=== PATIENT | female | born 1975 | race Caucasian/White ===

== ENCOUNTER 2020-01-26 15:28 | Outpatient (REF) | payer OTHER, SELFPAY | END 2020-01-26 15:29 | disposition home or self-care (01) | LOC: HO.LAB 15:28 | PROVIDERS: Visit Provider Internal Medicine | DX: Z20.828 Contact with and (suspected) exposure to other viral communicable diseases (principal) | CPT/HCPCS: C9803; U0003 ==

== ENCOUNTER 2020-02-09 13:02 | Outpatient (REF) | payer OTHER, SELFPAY | END 2020-02-09 13:03 | disposition home or self-care (01) | LOC: HO.LAB 13:02 | PROVIDERS: PCP Physician Assistant; Visit Provider Internal Medicine | DX: Z20.828 Contact with and (suspected) exposure to other viral communicable diseases (principal) | CPT/HCPCS: C9803; U0003 ==

== ENCOUNTER 2020-04-15 13:52 | Outpatient (REF) | payer OTHER, SELFPAY | END 2020-04-15 13:53 | disposition home or self-care (01) | LOC: HO.LAB 13:52 | PROVIDERS: Visit Provider Internal Medicine | DX: Z20.822 Contact with and (suspected) exposure to COVID-19 (principal) | CPT/HCPCS: 36415; C9803; U0003; U0005 ==

== ENCOUNTER 2020-11-11 14:06 | Outpatient (REF) | payer OTHER, SELFPAY | END 2020-11-11 14:07 | disposition home or self-care (01) | LOC: HO.LAB 14:06 | PROVIDERS: PCP Physician Assistant; Visit Provider Internal Medicine | DX: Z20.822 Contact with and (suspected) exposure to COVID-19 (principal) | CPT/HCPCS: C9803; U0003; U0005 ==

== ENCOUNTER 2023-04-15 03:54 | Emergency (ER) | payer OTHER, SELFPAY ==
--- NOTE | ~2023-04-15 | XR_ITS ---
EXAMINATION: XR CHEST CLINICAL INFORMATION: Cough. COMPARISON: None available. TECHNIQUE: Frontal view of the chest was obtained. FINDINGS: No significant abnormality is noted involving the heart, lungs, mediastinum, bony thorax or soft tissues. XR/XR chest 1V IMPRESSION: Unremarkable examination.
[2023-04-15 04:01] VITALS: BP 120/76; PULSE 112; O2SAT 98
[2023-04-15 04:02] VITALS: BP 122/77; PULSE 87; TEMP 36.8; O2SAT 92
[2023-04-15 04:07] VITALS: BMI 29.6
[2023-04-15 04:29] LABS: Basophils Percent Auto 0.5 % (0-2); Eosinophils Absolute Auto 0.1 X10*3/uL (0.0-0.4); Eosinophils Percent Auto 0.8 % (0-4); Hematocrit 38.8 % (37.0-47.0); Hemoglobin 12.1 g/dl (12.0-16.0); Imm Gran Abs Auto 0.01 X10*3/uL (0.00-0.03); Imm Gran Pct Auto 0.2 % (0.0-0.4); Lymphocytes Absolute Auto 1.4 X10*3/uL (1.2-4.9); Lymphocytes Percent Auto 21.2 % (20-40); MANUAL DIFF FLAG NO; Mean Corpuscular HGB Conc 31.2 g/dl (31.0-35.0); Mean Corpuscular Hemoglobin 25.4 pg (27.0-33.0); Mean Corpuscular Volume 81.5 fL (80.0-98.0); Mean Platelet Volume 11.3 fL (9.4-12.3); Monocytes Absolute Auto 0.7 X10*3/uL (0.1-1.2); Monocytes Percent Auto 10.3 % (2-11); Neutrophils Absolute Auto 4.4 x10*3/uL (2.0-8.3); Platelet Count 391 X10*3/uL (160-400); Red Blood Count 4.76 X10*6/uL (4.20-5.50); Red Cell Distribution Width 14.2 % (11.0-16.0); White Blood Count 6.5 X10*3/uL (4.8-10.8)
[2023-04-15 04:44] LABS: Alanine Aminotransferase 18 U/L (0-31); Albumin Level 4.3 g/dL (3.5-5.0); Alkaline Phosphatase 67 U/L (39-117); Anion Gap 15 (12-20); Aspartate Amino Transferase 22 U/L (5-31); Bilirubin Total 0.4 mg/dL (0.0-1.0); Blood Urea Nitrogen 8 mg/dL (9-16); Calcium 9.2 mg/dL (8.4-10.2); Carbon Dioxide 24 mmol/L (22-29); Chloride 104 mmol/L (96-108); Creatinine Clr Calc Pharmacy 96.8; Estimated Glomerular Filt Rate > 60; Glucose Random 137 mg/dL (60-115); Potassium 4.6 mmol/L (3.3-5.1); Sodium 138 mmol/L (135-145); Total Protein 7.9 g/dL (6.5-8.0)
[2023-04-15 05:07] LABS: Influenza A PCR POSITIVE (Negative); Influenza B PCR NEGATIVE (Negative); Resp Syncy Virus RNA Qual PCR NEGATIVE (Negative); SARS COV2 PCR INHOUSE NEGATIVE (Negative)
--- NOTE | 2023-04-15 05:12 | ED.URI ---
HPI - URI/Sore Throat General Chief Complaint: Upper Respiratory Symptoms Stated Complaint: COUGH AND FEVER Time Seen by Provider: 04/15/23 05:08 Source: patient Mode of arrival: ambulatory Limitations: no limitations History of Present Illness HPI Narrative: Patient comes to the emergency room complaining of above, nausea, vomiting, generalized malaise. Subjective fever. No chest pain or shortness of breath Related Data Previous Rx's Medication Instructions Recorded acetaminophen 500 mg tablet 500 mg PO Q6H PRN fever or pain 04/15/23 #20 tabs ibuprofen 600 mg tablet 600 mg PO Q6H PRN fever or pain 04/15/23 #20 tabs ondansetron HCl 4 mg tablet 4 mg PO Q6H PRN nausea and 04/15/23 vomiting #14 tabs Allergies Allergy/AdvReac Type Severity Reaction Status Date / Time tramadol [TRAMADOL] Allergy Unknown NAUSEA, Verified 04/15/23 04:17 VOMITING, DIZZINESS Review of Systems Review of Systems: Constitutional : No Weight loss, complaining of subjective Fever, No Chills, No Night Sweats, complaining of fatigue and generalized malaise ENT/Mouth : No Hearing loss, No Ear Pain, No Nasal Congestion, No Sinus Pain, No Hoarseness, No sore throat, No Rhinorrhea, No Swallowing Difficulty Eyes: No Eye Pain, No Swelling, No Redness, No Foreign Body, No Discharge, No Vision Changes Cardiovascular : No Chest Pain, No SOB, No Dyspnea on Exertion, No Orthopnea, No Edema, No Palpitations Respiratory : Complaining of cough No Sputum, No Wheezing, No Smoke Exposure, No Dyspnea Gastrointestinal : No Nausea, No Vomiting, No Diarrhea, No Constipation, No abdominal Pain, No Hematochezia, No Melena Genitourinary : no irregular bleeding, No Dysuria, No Urinary Frequency, No Hematuria, No Urinary Incontinence, No Urgency, No Flank Pain, No Urinary Flow Changes, No Hesitancy Musculoskeletal : No joint pain, No Myalgias, No Joint Swelling Skin : No Skin Lesions, No rash Neuro : No Weakness, No Numbness, No Paresthesias, No Loss of Consciousness, No Dizziness, No Headache Psych : No Anxiety/Panic, No Depression, No SI/HI/AH/VH, No Social Issues, Heme/Lymph: No Bruising, No Bleeding,No Lymphadenopathy Endocrine : No Polyuria, No Polydipsia, No Temperature Intolerance PMFSH Social History Social History Smoked in Last 30 Days: No Use of substances other than those prescribed or required for medical reasons: No Advance Directives: No Physical Exam Vital Signs: Vital Signs: Last Vital Signs Temp 98.2 F 04/15/23 04:02 Pulse 87 04/15/23 04:02 BP 122/77 04/15/23 04:02 Pulse Ox 92 04/15/23 04:02 O2 Del Method Room Air 04/15/23 04:02 BMI result Body Mass Index 29.6 Const: Other: Appearance: Alert. Oriented X3. No acute distress. Eyes: Pupils equal, round and reactive to light. ENT: Pharynx normal. Neck: Normal inspection. Neck supple. No lymph nodes noted. No crepitus CVS: Normal heart rate and rhythm. Pulses normal. Normal S1 and S2 Respiratory: No respiratory distress. Breath sounds normal. No Wheezing. No rales Abdomen: Soft and nontender. No rigidity. No distention. Skin: Skin warm and dry. Normal skin color. Normal skin turgor. Extremities: No lower extremity edema. No Lacerations. No Rash Neuro: Oriented X 3. No motor deficit. No sensory deficit. Moving all extremities. No slurred speech. CN 2 through 12 grossly intact Psych: calm, cooperative, normal affect Medical Decision Making Medical Decision Making [facility] Narrative: I discussed the labs with the patient -my interpretation of labs: Positive for influenza A. -I discussed with the patient that she is on day 5 of symptoms, at this time, Tamiflu will not be of any benefit to her. -patient was given 1 dose of IM Toradol for symptomatic treatment. Differential Diagnosis Differential Diagnoses: The differential diagnosis associated with the presentation includes (Influenza, COVID, viral URI) Lab Data [facility] Lab Attestation statement: I reviewed the patient's lab results. 04/15/23 04:21 04/15/23 04:21 Labs: Lab Results 04/15/23 Range/Units 04:21 WBC 6.5 (4.8-10.8) X10*3/uL RBC 4.76 (4.20-5.50) X10*6/uL Hgb 12.1 (12.0-16.0) g/dl Hct 38.8 (37.0-47.0) % MCV 81.5 (80.0-98.0) fL MCH 25.4 L (27.0-33.0) pg MCHC 31.2 (31.0-35.0) g/dl RDW 14.2 (11.0-16.0) % Plt Count 391 (160-400) X10*3/uL MPV 11.3 (9.4-12.3) fL Immature Gran % (Auto) 0.2 (0.0-0.4) % Neut % (Auto) 67.0 (45-73) % Lymph % (Auto) 21.2 (20-40) % Frontier % (Auto) 10.3 (2-11) % Eos % (Auto) 0.8 (0-4) % Baso % (Auto) 0.5 (0-2) % Lymph # (Auto) 1.4 (1.2-4.9) X10*3/uL Frontier # (Auto) 0.7 (0.1-1.2) X10*3/uL Eos # (Auto) 0.1 (0.0-0.4) X10*3/uL Baso # (Auto) 0.0 (0.0-0.2) X10*3/uL Abs Immat Gran (auto) 0.01 (0.00-0.03) X10*3/uL Absolute Neuts (auto) 4.4 (2.0-8.3) x10*3/uL Absolute Nucleated RBC 0.000 (0.0-0.012) X10*3/uL Nucleated RBC % (auto) 0.0 (0.0-0.2) /100WBC Sodium 138 (135-145) mmol/L Potassium 4.6 (3.3-5.1) mmol/L Chloride 104 (96-108) mmol/L Carbon Dioxide 24 (22-29) mmol/L Anion Gap 15 (12-20) BUN 8 L (9-16) mg/dL Creatinine 0.77 (0.5-1.4) mg/dL Estim Creat Clear Calc 96.8 Estimated GFR > 60 Random Glucose 137 H (60-115) mg/dL Calcium 9.2 (8.4-10.2) mg/dL Total Bilirubin 0.4 (0.0-1.0) mg/dL AST 22 (5-31) U/L ALT 18 (0-31) U/L Alkaline Phosphatase 67 (39-117) U/L Total Protein 7.9 (6.5-8.0) g/dL Albumin 4.3 (3.5-5.0) g/dL Influenza Type A (PCR) POSITIVE A (Negative) Influenza Type B (PCR) NEGATIVE (Negative) RSV RNA Qual (PCR) NEGATIVE (Negative) SARS-CoV-2 RNA (RT-PCR) NEGATIVE (Negative) Discharge Plan Discharge Clinical Impression: Influenza A Patient Disposition: Home, Self-Care Instructions: Influenza (ED) Additional Instructions: Please follow-up with your primary care physician tomorrow. If you have any worsening or new symptoms, please return to the emergency room or call 911 Prescriptions: New ibuprofen 600 mg tablet 600 mg PO Q6H PRN (Reason: fever or pain) Qty: 20 0RF acetaminophen 500 mg tablet 500 mg PO Q6H PRN (Reason: fever or pain) Qty: 20 0RF ondansetron HCl 4 mg tablet 4 mg PO Q6H PRN (Reason: nausea and vomiting) Qty: 14 0RF
[2023-04-15] MEDS: Ketorolac Tromethamine 60 MG/2 ML VIAL IM (06:00)
[2023-04-15] MEDS: Ondansetron ODT 4 MG TAB.RAPDIS TRANSLINGU (06:00)
== END 2023-04-15 06:26 | disposition home or self-care (01) ==
PROVIDERS: Emergency Provider Emergency Medicine; PCP Internal Medicine
DX: J10.1 Influenza due to other identified influenza virus with other respiratory manifestations (principal); R05.9 Cough, unspecified; R50.9 Fever, unspecified; R11.2 Nausea with vomiting, unspecified; Z20.822 Contact with and (suspected) exposure to COVID-19; Z11.52 Encounter for screening for COVID-19; Z79.899 Other long term (current) drug therapy
CPT/HCPCS: 0241U; 71045; 80053; 85025; 96372; 99284; J1885

== ENCOUNTER 2023-05-17 14:50 | Outpatient (REF) | payer OTHER, SELFPAY ==
[2023-05-17 17:46] LABS: Erythrocyte Sedimentation Rate 12 MM/HR (0-20)
[2023-05-18 17:48] LABS: Cyclic Citrullinated Peptide <16 UNITS; IgA 164 mg/dL (47-310); IgG 1246 mg/dL (600-1640); IgM 106 mg/dL (50-300)
[2023-05-19 10:23] LABS: Class Alternaria alternata 0; Class Aspergillus fumigatus 0; Class Bermuda Grass 0; Class Birch 0; Class Cat Dander 0; Class Cladosporium herbarum 0; Class Cockroach 0; Class Common Ragweed 0; Class Cottonwood 0; Class Derm. pterony 0; Class Dermatophagoides farinae 0/1; Class Dog Dander 0; Class Elm 0; Class Maple Box Elder 0; Class Mountain Cedar 0; Class Mouse Urine Protein 0; Class Mugwort 0; Class Oak 0; Class Penicillium crysogenum 0; Class Rough Pigweed 0; Class Sheep Sorrel 0; Class Sycamore 0; Class Timothy Grass 0; Class Walnut Tree 0; Class White Ash 0; Class White Mulberry 0; D001 IgE D pteronyssinus <0.10 kU/L; D002 - IgE D farinae 0.19 kU/L; E001 - IgE Cat Dander <0.10 kU/L; E005 - IgE Dog Dander <0.10 kU/L; E072-IgE Mouse Urine <0.10 kU/L; G002 IgE Bermuda Grass <0.10 kU/L; G006 - IgE Timothy Grass <0.10 kU/L; I006-IgE Cockroach, German <0.10 kU/L; Immunoglobulin E 26 kU/L (<OR=114); M001 IgE Penicillium chrysogen <0.10 kU/L; M002 - IgE Cladosporium herbar <0.10 kU/L; M003 - IgE Aspergillus fumigat <0.10 kU/L; M006 - IgE Alternaria alternat <0.10 kU/L; T001 IgE Maple/Box Elder <0.10 kU/L; T003 IgE Common Silver Birch <0.10 kU/L; T006 - IgE Cedar, Mountain <0.10 kU/L; T007 - IgE Oak, White <0.10 kU/L; T008 IgE Elm, American <0.10 kU/L; T010 - IgE Walnut <0.10 kU/L; T011 - IgE Maple Leaf Sycamore <0.10 kU/L; T014 - IgE Cottonwood <0.10 kU/L; T015 - IgE Ash, White <0.10 kU/L; T070 - IgE White Mulberry <0.10 kU/L; W001 - IgE Ragweed, Short <0.10 kU/L; W006 - IgE Mugwort <0.10 kU/L; W014 IgE Pigweed, Common <0.10 kU/L; W018 IgE Sheep Sorrel <0.10 kU/L
[2023-05-19 13:09] LABS: Anti Nuclear Antibody Screen NEGATIVE (NEGATIVE)
== END 2023-05-17 14:51 | disposition home or self-care (01) ==
LOC: HO.LAB 14:50
PROVIDERS: PCP Physician Assistant; Referring Provider Student in an Organized Health Care Education/Training Program; Visit Provider Hospitalist
DX: J45.40 Moderate persistent asthma, uncomplicated (principal); T78.40XA Allergy, unspecified, initial encounter; R91.1 Solitary pulmonary nodule; R21 Rash and other nonspecific skin eruption; Z79.899 Other long term (current) drug therapy
CPT/HCPCS: 36415; 82784; 82785; 85652; 86003; 86038; 86200; 99202

== ENCOUNTER 2023-05-17 14:50 | Outpatient (AMB) | payer OTHER, SELFPAY ==
--- NOTE | 2023-05-17 15:05 | MHC.OFFVIS ---
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 The patient is a 47 year woman with a diagnosis of asthma. Here for evaluation. Apparently she has had a very hard winter and fall. 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 She has been exposed significant amount sick contacts and therefore has had significant amount her asthma flare ups. She is required prednisone multiple times already. In the meantime she does use Symbicort. She also has a rescue inhaler. I am further evaluation I did review her pulmonary function studies that she had this year demonstrating no evidence of any obstructive ventilatory defects. Ultimately she did undergo a methacholine challenge which she drop more than 20% after the 2nd dose of methacholine consistent with hyper-reactive airways in the diagnosis of asthma. The patient does have underlying allergies. Significant chronic rhinitis. More recently though she was also diagnosed with psoriasis. She has psoriasis throughout her skin face and extremities. Recently started on consentyx. Prior to starting the biologic therapy the patient did have blood work including a TB test was negative. The patient understands that she is going to be a compromise with the medication. Therefore we have to be careful with the medications we start for her asthma. The patient is using the Symbicort as needed which I believe is okay and also will go ahead and start her on Singulair as a way to treat her allergies. [facility] Medical History (Updated 05/18/23 @ 12:50 by Noah Strong MD) Rash Asthma Allergy Social History (Updated 05/17/23 @ 15:09 by SHARITA Hicks) Patient Tobacco Use Status: Never used Tobacco Review of Systems Const Denies fever(s) Eyes Reports no additional complaints ENT Reports nasal congestion Card Denies chest pain Resp Reports cough and Reports wheezing GI Reports no additional complaints Musc Reports no additional complaints, Denies arthralgias and Denies joint swelling Skin/Breast Reports lesions and Reports rash Neuro Reports no additional complaints Endo Reports no additional complaints Álvaro/Lymph Denies easy bruising Aller/Immun Reports wheezing Physical Exam Vital Signs: Last Vital Signs Pulse 90 05/17/23 15:06 BP 128/70 05/17/23 15:06 Pulse Ox 98 05/17/23 15:06 Oxygen Delivery Method Room Air 05/17/23 15:06 BMI result Body Mass Index 29.6 Const General: comfortable HEENT Head: Yes normocephalic Neck Neck: Yes supple Chest Chest palpation & inspection: normal inspection of the chest Resp Effort & Inspection: normal respiratory effort Auscultation: clear to auscultation bilaterally and no wheezes Cardio Heart sounds: S1 normal heart sound present and S2 normal heart sound present GI Palpation (GI): Soft to palpation Skin Rashes: rashes noted Extrem General: Yes no clubbing, cyanosis or edema Assessment & Plan Assessment & Plan (1) Allergy: Code(s): T78.40XA - Allergy, unspecified, initial encounter Qualifiers: Encounter type: initial encounter Qualified Code(s): T78.40XA - Allergy, unspecified, initial encounter (2) Asthma: Code(s): J45.909 - Unspecified asthma, uncomplicated Qualifiers: Asthma severity: moderate Asthma persistence: persistent Asthma complication type: uncomplicated Qualified Code(s): J45.40 - Moderate persistent asthma, uncomplicated (3) Rash: Comment: psoriasis Code(s): R21 - Rash and other nonspecific skin eruption Plan Bloodwork/allergy testing Continue Symbicort REBECCA as needed start Singulair F/U 3-4 months Orders: Orders Cyclic Citrullinated Peptide 05/17/23 T78.40XA - Allergy, unspecified, initial encounter Cell Count w Diff Pleural Fld 05/17/23 T78.40XA - Allergy, unspecified, initial encounter Immunoglobulin E 05/17/23 T78.40XA - Allergy, unspecified, initial encounter Resp Allergy Profile Region I 05/17/23 J45.909 - Unspecified asthma, uncomplicated, R21 - Rash and other nonspecific skin eruption, R91.1 - Solitary pulmonary nodule, T78.40XA - Allergy, unspecified, initial encounter WOO Reflex Titer and Pattern 05/17/23 T78.40XA - Allergy, unspecified, initial encounter Erythrocyte Sedimentation Rate 05/17/23 T78.40XA - Allergy, unspecified, initial encounter Immunoglobulins,IgG IgA IgM 05/17/23 T78.40XA - Allergy, unspecified, initial encounter Medications: New montelukast (Singulair) 10 mg PO BEDTIME 30 days 30 tabs 11RF J45.909 - Unspecified asthma, uncomplicated Coding Level of Care Code New Pt Level 4 (58156) Diagnoses Allergy, initial encounter T78.40XA Encounter type: initial encounter Moderate persistent asthma without complication J45.40 Asthma severity: moderate Asthma persistence: persistent Asthma complication type: uncomplicated Rash R21 Time Spent (min) 38
[2023-05-17 15:06] VITALS: BP 128/70; PULSE 90; O2SAT 98; BMI 29.6
== END 2023-05-17 16:17 | disposition home or self-care (01) ==
PROVIDERS: PCP Physician Assistant; Referring Provider Student in an Organized Health Care Education/Training Program; Visit Provider Hospitalist
DX: T78.40XA Allergy, unspecified, initial encounter (principal); J45.40 Moderate persistent asthma, uncomplicated; R21 Rash and other nonspecific skin eruption
CPT/HCPCS: 99204

== ENCOUNTER 2023-08-19 15:13 | Outpatient (AMB) | payer OTHER, SELFPAY ==
--- NOTE | 2023-08-19 15:21 | A.OFFVIS_ITS ---
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 Here for evaluation. Apparently she has had a very hard winter and fall. 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 She has been exposed significant amount sick contacts and therefore has had significant amount her asthma flare ups. She is required prednisone multiple times already. In the meantime she does use Symbicort. She also has a rescue inhaler. I am further evaluation I did review her pulmonary function studies that she had this year demonstrating no evidence of any obstructive ventilatory defects. Ultimately she did undergo a methacholine challenge which she drop more than 20% after the 2nd dose of methacholine consistent with hyper-reactive airways in the diagnosis of asthma. The patient does have underlying allergies. Significant chronic rhinitis. More recently though she was also diagnosed with psoriasis. She has psoriasis throughout her skin face and extremities. Recently started on consentyx. Prior to starting the biologic therapy the patient did have blood work including a TB test was negative. The patient understands that she is going to be a compromise with the medication. Therefore we have to be careful with the medications we start for her asthma. The patient is using the Symbicort as needed which I believe is okay and also will go ahead and start her on Singulair as a way to treat her allergies. 08/19/2023 the patient is here for a pulmonary follow-up visit. Overall she is doing little better. She has tolerating the Symbicort. In addition to that she is responding well to the singular. The patient does have underlying asthma. We did review her pulmonary function studies from [facility] which appeared to be reassuring. In addition to that the patient did undergo blood work including allergy testing. She has minimal allergies noted. She is responding well to the singular which we helping with the chute tapper. She can also use anti histamines as needed. Otherwise the patient is without any other complaints. Will plan to follow-up in the spring. The patient has any issues prior to that she will call for an earlier assessment. [facility] Medical History (Updated 05/18/23 @ 12:50 by Noah Strong MD) Rash Asthma Allergy Social History (Updated 05/17/23 @ 15:09 by SHARITA Hicks) Patient Tobacco Use Status: Never used Tobacco Review of Systems Const Denies fever(s) Eyes Reports no additional complaints ENT Reports nasal congestion Card Denies chest pain Resp Reports cough and Reports wheezing GI Reports no additional complaints Musc Reports no additional complaints, Denies arthralgias and Denies joint swelling Skin/Breast Reports lesions and Reports rash Neuro Reports no additional complaints Endo Reports no additional complaints Álvaro/Lymph Denies easy bruising Aller/Immun Reports wheezing Physical Exam Vital Signs: Last Vital Signs Pulse 73 08/19/23 15:22 Pulse Ox 99 08/19/23 15:22 Oxygen Delivery Method Room Air 08/19/23 15:22 BMI result Body Mass Index 29.6 Const General: comfortable HEENT Head: Yes normocephalic Neck Neck: Yes supple Chest Chest palpation & inspection: normal inspection of the chest Resp Effort & Inspection: normal respiratory effort Auscultation: clear to auscultation bilaterally and no wheezes Cardio Heart sounds: S1 normal heart sound present and S2 normal heart sound present GI Palpation (GI): Soft to palpation Skin Rashes: rashes noted Extrem General: Yes no clubbing, cyanosis or edema Assessment & Plan Assessment & Plan (1) Allergy: Code(s): T78.40XA - Allergy, unspecified, initial encounter Category: Medical Qualifiers: Encounter type: initial encounter Qualified Code(s): T78.40XA - Allergy, unspecified, initial encounter (2) Asthma: Code(s): J45.909 - Unspecified asthma, uncomplicated Category: Medical Qualifiers: Asthma complication type: uncomplicated Asthma persistence: persistent Asthma severity: moderate Qualified Code(s): J45.40 - Moderate persistent asthma, uncomplicated (3) Rash: Comment: psoriasis Code(s): R21 - Rash and other nonspecific skin eruption Category: Medical Plan Continue Symbicort as needed REBECCA as needed continue Singulair F/U 6-8 months Coding Level of Care Code Est Pt Level 4 (94063) Diagnoses Allergy, initial encounter T78.40XA Encounter type: initial encounter Moderate persistent asthma without complication J45.40 Asthma complication type: uncomplicated Asthma persistence: persistent Asthma severity: moderate Rash R21 Time Spent (min) 16
[2023-08-19 15:22] VITALS: PULSE 73; O2SAT 99; BMI 29.6
== END 2023-08-19 15:38 | disposition home or self-care (01) ==
PROVIDERS: PCP Physician Assistant; Visit Provider Hospitalist
DX: T78.40XA Allergy, unspecified, initial encounter (principal); J45.40 Moderate persistent asthma, uncomplicated; R21 Rash and other nonspecific skin eruption
CPT/HCPCS: 99214

== ENCOUNTER → 2023-08-19 15:13 | Outpatient (BNVA) | payer OTHER, SELFPAY | PROVIDERS: PCP Physician Assistant; Visit Provider Hospitalist | DX: J45.40 Moderate persistent asthma, uncomplicated (principal); T78.40XA Allergy, unspecified, initial encounter; R21 Rash and other nonspecific skin eruption | CPT/HCPCS: 99212 ==

== ENCOUNTER 2024-03-29 08:43 | Emergency (ER) | payer OTHER, SELFPAY ==
[2024-03-29 08:57] VITALS: BP 132/72; PULSE 88; RESP 22; TEMP 36.6; O2SAT 100; BMI 33.5
--- OUTSIDE RECORDS SUMMARY | 2024-03-29 09:31 | XMS_ITS | Encounter Summary ---
Author Organization [facility] Address [address] [place] [address] Care Team Providers Care Senior Electrical Designer Name Role Phone Ailyn Velázquez MD Primary Care Provider + Reason for Referral * Imaging (Routine) - Closed Specialty Diagnoses / Procedures Referred By Madison de león Referred To Contact Radiology Diagnoses Pelvic pain Procedures US Pelvis Non OB Complete w Transvaginal Cathy Mckeon CNM [address] [place] [address] [phone] Referral ID Status Reason Start Date Expiration Date Visits Re quested Visits Authorized [id number] Closed 03/03/2024 03/03/2025 1 1 Reason for Visit * Imaging (Routine) - Closed Specialty Diagnoses / Procedures Referred By Madison de león Referred To Contact Radiology Diagnoses Pelvic pain Procedures US Pelvis Non OB Complete w Transvaginal Cathy Mckeon CNM [address] [place] [address] [phone] Referral ID Status Reason Start Date Expiration Date Visits Re quested Visits Authorized [id number] Closed 03/03/2024 03/03/2025 1 1 Encounter Details Date Type Department Care Team (Latest Contact Info) Description 03/23/2024 12:48 PM EST - 03/23/2024 11:59 PM EST Hospital Encounter [facility] Ultrasound [address] [place] [address] Pelvic pain Discharge Disposition: Home or Self Care Social History Tobacco Use Types Packs/Day Years Used Date Smoking Tobacco: Never Smokeless Tobacco: Never Alcohol Use Standard Drinks/Week Comments Yes 0.8 (1 standard drink = 0.6 oz p ure alcohol) Sex and Gender Information Value Date Recorded Sex Assigned at Not on file Gender Identity Not on file Sexual Orientation Not on file Job Start Date Occupation Industry Not on file Not on file Not on file documented as of this encounter Medications at Time of Discharge Medication Sig Dispensed Refills Start Date End Date amitriptyline (ELAVIL) 10 mg tablet Take 1 tablet (10 mg total) by mouth. at bedtime 01/09/2024 betamethasone dipropionate (DIPROSONE) 0.05 % cream 02/15/2024 conjugated estrogens (Premarin) vaginal cream Insert 0.5 g into the vagina 2 (two) times a week. INSERT 1 APPLICATORFUL 30 g 03/06/2024 folic acid (FOLVITE) 1 mg tablet Take 1 tablet (1,000 mcg total) by mouth 1 (one) time each day. 06/19/2021 gabapentin (NEURONTIN) 100 mg capsule 01/25/2024 hydroxychloroquine (PLAQUENIL) 200 mg tablet Take 1 tablet (200 mg total) by mouth 1 (one) time each day. 01/12/2024 hydrOXYzine HCL (ATARAX) 25 mg tablet TAKE 1 TABLET BY MOUTH THREE TIMES DAILY NEEDED FOR ITCHING 03/04/2023 ibuprofen (ADVIL,MOTRIN) 800 mg tablet Take 1 tablet (800 mg total) by mouth 3 (three) times a day if needed. 12/15/2023 Lactobacillus acidophilus 100 mg (1 billion cell) capsule Take 1 capsule by mouth 2 (two) times a day. 09/23/2021 meloxicam (MOBIC) 15 mg tablet Take 1 tablet (15 mg total) by mouth 1 (one) time each day. 02/21/2024 montelukast (SINGULAIR) 10 mg tablet Take 1 tablet (10 mg total) by mouth. at bedtime. 12/11/2023 norethindrone (INGRID,PHOEBE,ALANNA,M ICRONOR) 0.35 mg tablet Take 1 tablet (0.35 mg total) by mouth 1 (one) time each day. for 360 days omeprazole (PriLOSEC) [address] capsule Take 1 capsule (20 mg total) by mouth 1 (one) time each day before breakfast. 12/11/2023 SUMAtriptan (IMITREX) 50 mg tablet TAKE 1 TABLET BY MOUTH DAILY NEEDED FOR MIGRAINE HEADACHE. MAY REPEAT DOSE AFTER 2 HOURS UP TO A. MAXIMUM OF 2 12/11/2023 Symbicort 160-4.5 mcg/actuation inhaler Inhale 2 puffs by mouth 2 times daily. 12/15/2023 Ventolin HFA 90 mcg/actuation inhaler Inhale 2 puffs by mouth Every 4 hours as needed. 12/15/2023 documented as of this encounter Discharge Disposition Disposition Code Departure Means Destination Home or Self Care documented in this encounter Plan of Treatment Upcoming Encounters Date Type Department Care Team (Late st Contact Info) Description 06/01/2024 11:15 AM EDT Office Visit Obstetrics & Gynecology - [address] [phone] Cathy Mckeon, [facility] [address] [place] [id number] documented as of this encounter Procedures Procedure Name Priority Date/Time Associated Diagnosis Comments US PELVIS NON OB COMPLETE W TRANSVAGINAL Routine 03/23/2024 1:22 PM EST Pelvic pain documented in this encounter Results * US Pelvis Non OB Complete w Transvaginal (03/23/2024 1:22 PM EST) Anatomical Region Laterality Modality Body, Pelvis Ultrasound 03/27/2024 3:36 PM EST Impressions 03/27/2024 3:42 PM EST 1. ??Normal sonographic appearance of the uterus and right ovary. 2. ??Stable simple appearing 13 mm cyst exophytic ovarian or paraovarian cyst on the left. -------- FINAL REPORT -------- Dictated By: Herman Izquierdo Dictated Date: 03/27/2024 15:36 ET Assigned Physician: Herman Izquierdo Reviewed and Electronically Signed By: Herman Izquierdo Signed Date: 03/27/2024 15:42 ET Workstation ID: [id number] Transcribed By: Self Edit Transcribed Date: 03/27/2024 15:36 ET Narrative 03/27/2024 3:42 PM EST Procedure: Ultrasound of the pelvis. HISTORY: LLQ pelvic pain. TECHNIQUE: Transabdominal and endovaginal grayscale, color Doppler, and spectral Doppler ultrasound evaluation of the pelvis. COMPARISON: 10/13/2019. FINDINGS: Anteverted uterus measuring 10.7 x 4.6 x 6.2 cm. ??The endometrial stripe measures 6 mm. ??Incidentally noted nabothian cysts. Right ovarian volume of 5.6 mL. ??Left ovarian volume of 4.8 mm. ??The left ovary is only seen on transabdominal imaging. ??Doppler flow is documented in both ovaries. There is a 13 mm simple cyst adjacent to the left ovary. ??This appears similar to the previous exam. ?? No free fluid in the pelvis. Procedure Note Herman Izquierdo MD - 03/27/2024 Procedure: Ultrasound of the pelvis. HISTORY: LLQ pelvic pain. TECHNIQUE: Transabdominal and endovaginal grayscale, color Doppler, andspectral Doppler ultrasound evaluation of the pelvis. COMPARISON: 10/13/2019. FINDINGS: Anteverted uterus measuring 10.7 x 4.6 x 6.2 cm. The endometrial stripemeasures 6 mm. Incidentally noted nabothian cysts. Right ovarian volume of 5.6 mL. Left ovarian volume of 4.8 mm. The leftovary is only seen on transabdominal imaging. Doppler flow is documentedin both ovaries. There is a 13 mm simple cyst adjacent to the left ovary. This appearssimilar to the previous exam. No free fluid in the pelvis. IMPRESSION: 1. Normal sonographic appearance of the uterus and right ovary. 2. Stable simple appearing 13 mm cyst exophytic ovarian or paraovariancyst on the left. -------- FINAL REPORT -------- Dictated By: Herman Izquierdo Dictated Date: 03/27/2024 15:36 ET Assigned Physician: Herman Izquierdo Reviewed and Electronically Signed By: Herman Izquierdo Signed Date: 03/27/2024 15:42 ET Workstation ID: [id number] Transcribed By: Self Edit Transcribed Date: 03/27/2024 15:36 ET Cathy Mckeon CNM IMG US PROCEDURES documented in this encounter Visit Diagnoses Diagnosis Pelvic pain documented in this encounter Care Teams Senior Electrical Designer Relationship Specialty Start Date End Date Ailyn Velázquez MD [address] [place] [phone] PCP - General 10/07/23 documented as of this encounter
--- OUTSIDE RECORDS SUMMARY | 2024-03-29 09:31 | XMS_ITS | Encounter Summary ---
Author Organization [employer] Address [address] [place] [address] Care Team Providers Care Event Marketing Representative Name Role Phone Ailyn Velázquez MD Primary Care Provider + Encounter Details Date Type Department Care Team (Late Contact Info) Description 03/09/2024 Telephone Obstetrics & Gynecology - [address] [phone] Cathy Mckeon CNM [facility] [place] [address] Social History Tobacco Use Types Packs/Day Years [...] on file documented as of this encounter Plan of Treatment Upcoming Encounters Date Type Department Care Team (Late Contact Info) Description 06/01/2024 11:15 AM EDT Office Visit Obstetrics & Gynecology - [address] [phone] Cathy Mckeon CNM [address] [place] [phone] documented as of this encounter Visit Diagnoses Not on filedocumented in this encounter Care Teams Event Marketing Representative Relationship Specialty Start Date End Date Ailyn Velázquez MD [address] [place] [phone] PCP - General 10/07/23 documented as of this encounter
--- OUTSIDE RECORDS SUMMARY | 2024-03-29 09:31 | XMS_ITS | Clinical Summary ---
Author Organization [facility] Address [address] [place] [address] Phone Care Team Providers Care Tailoring Teacher Name Role Phone Ailyn Velázquez MD Primary Care Provider + Allergies Active Allergy Reactions Criticality Noted Date Comments Tramadol Dermatitis,Rash 06/04/2016 Medications Medication Sig Dispensed Refills Start Date End Date Status Lactobacillus acidophilus 100 mg (1 billion cell) capsule Take 1 capsule by mouth 2 (two) times a day. 09/23/2021 Active folic acid (FOLVITE) 1 mg tablet Take 1 tablet (1,000 mcg total) by mouth 1 (one) time each day. 06/19/2021 Active norethindrone (INGRID,PHOEBE,HEAT HER,MICRONOR) 0.35 mg tablet Take 1 tablet (0.35 mg total) by mouth 1 (one) time each day. for 360 days Active Ventolin HFA 90 mcg/actuation inhaler Inhale 2 puffs by mouth Every 4 hours as needed. 12/15/2023 Active amitriptyline (ELAVIL) 10 mg tablet Take 1 tablet (10 mg total) by mouth. at bedtime 01/09/2024 Active Symbicort 160-4.5 mcg/actuation inhaler Inhale 2 puffs by mouth 2 times daily. 12/15/2023 Active gabapentin (NEURONTIN) 100 mg capsule 01/25/2024 Active hydroxychloroquine (PLAQUENIL) 200 mg tablet Take 1 tablet (200 mg total) by mouth 1 (one) time each day. 01/12/2024 Active hydrOXYzine HCL (ATARAX) 25 mg tablet TAKE 1 TABLET BY MOUTH THREE TIMES DAILY NEEDED FOR ITCHING 03/04/2023 Active ibuprofen (ADVIL,MOTRIN) 800 mg tablet Take 1 tablet (800 mg total) by mouth 3 (three) times a day if needed. 12/15/2023 Active montelukast (SINGULAIR) 10 mg tablet Take 1 tablet (10 mg total) by mouth. at bedtime. 12/11/2023 Active SUMAtriptan (IMITREX) 50 mg tablet TAKE 1 TABLET BY MOUTH DAILY NEEDED FOR MIGRAINE HEADACHE. MAY REPEAT DOSE AFTER 2 HOURS UP TO A. MAXIMUM OF 2 12/11/2023 Active betamethasone dipropionate (DIPROSONE) 0.05 % cream 02/15/2024 Active meloxicam (MOBIC) 15 mg tablet Take 1 tablet (15 mg total) by mouth 1 (one) time each day. 02/21/2024 Active omeprazole (PriLOSEC) [address] capsule Take 1 capsule (20 mg total) by mouth 1 (one) time each day before breakfast. 12/11/2023 Active conjugated estrogens (Premarin) vaginal cream Insert 0.5 g into the vagina 2 (two) times a week. INSERT 1 APPLICATORFUL 30 g 03/06/2024 Active conjugated estrogens (Premarin) vaginal cream Insert into the vagina 2 (two) times a week. INSERT 1 APPLICATORFUL 05/11/2022 5 Discontinued (Reorder) cephalexin (KEFLEX) 500 mg capsule Take 1 capsule (500 mg total) by mouth 2 (two) times a day for 5 days. 10 each 03/03/2024 5 terconazole (TERAZOL 7) 0.4 % vaginal cream Insert 1 applicator into the vagina at bedtime for 7 days. 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 [address] [place] [phone] Cathy Mckeon CNM Results 03/23/2024 12:48 PM EST - 03/23/2024 11:59 PM EST Hospital Encounter [facility] [address] [place] [phone] Pelvic pain Discharge Disposition: Home or Self Care 03/09/2024 Telephone Obstetrics & Gynecology [facility] [address] [place] [phone] Cathy Mckeon CNM 03/03/2024 9:15 AM EST Office Visit Obstetrics & Gynecology [facility] [address] [place] [phone] Cathy Mckeon CNM Pelvic pain (Primary Dx); Acute vaginitis; Bartholin's gland cyst from Last 3 Months Immunizations Name Administration Dates Next Due Influenza Quadravalent, 0.5ml (Fluad) 65yo and o lder 12/16/2019 Influenza Quadrivalent, 0.5m l, preservative free (Fluarix; FluLaval; Fluzone) ages 6mo and older (Afluria) 3yo and older 04/08/2021,12/16/2019 Influenza trivalent, 0.5mL, preservative free (Fluarix; FluLaval; Fluzone) ages 6mo and older (Afluria) 3 years and older 12/16/2012 Influenza, Intradermal, Quad rivalent, Preservative Free, Injectable 12/16/2012 PPD Test 04/09/2020,03/06/2015 [employer] SARS-CoV-2 COVID-19, mRNA, LNP-S, preservative free 12/07/2020,11/07/2020 Pneumococcal polysaccharide 23 valent (Pneumovax 23) 2yo and older 07/22/2016 Td Tetanus diptheria (Tdvax) 7yo and older 04/05 Tdap Tetanus diptheria acell ular pertussis (Boostrix; Adacel) 7yo and older 10/27/2022 Surgical History Surgery Date Site/Laterality Comments TUBAL LIGATION PROCEDURE: HISTORICAL TUBAL LIGATION Medical History Medical History Date Comments Stroke due to embolism (CMS/HCC) DX:Stroke due to embolism (HCC); COMMENT: recovering well Migraine DX:Migraine Family History Medical History Relation Name Comments No Known Problems Father Other: ovarian cancer Mother Relation Name Status Comments Father Mother Social History Tobacco Use Types Packs/Day Years [...] file Not on file Not on file Obstetrics History Para Term AB IAB SAB Ectopic Multiple Livin g Live Births 5 4 1 1 4 4 Date Outcome GA Total Labor Labor/2nd/3rd Weight Sex Type Anes PTL Cindy A1 A5 Name Clin SAB 1996 Para F Living 1999 Para F Living 2002 Para M Living 2006 Para F Living Last Filed Vital Signs Vital Sign Reading Time Taken Comments Blood Pressure 123/85 03/03/2024 9:18 AM EST Pulse 78 03/03/2024 9:18 AM EST Temperature - - Respiratory Rate - - Oxygen Saturation - - Inhaled Oxygen Concentration - - Weight 91.6 kg (202 lb) 03/03/2024 9:18 AM EST Height 165.1 cm (5' 5 ) 03/03/2024 9:18 AM EST Body Mass Index 33.61 03/03/2024 9:18 AM EST Plan of Treatment Upcoming Encounters Date Type Department Care Team (Late st Contact Info) Description 06/01/2024 11:15 AM EDT Office Visit Obstetrics & Gynecology - [address] [phone] Cathy Mckeon, [facility] [address] [place] [address] Health Maintenance Due Date Last Done Comments Hepatitis B Vaccines (1 of 3 - 19+ 3-dose series) 1996 Pneumococcal Vaccine: Pediatrics (0 to 5 Years) and At-Risk Patients (6 to 64 Years) (2 of 2 - PCV) 07/22/2017 07/22/2016 COVID-19 Vaccine (3 - Pfizer risk series) 01/04/2021 12/07/2020, 11/07/2020 Colorectal Cancer Screening: Colonoscopy 01/25/2022 Social Influencers of Health Screening 01/25/2022 Depression Screening 02/24/2023 02/24/2022 Influenza Vaccine (#1) 2023 2, 12/16/2019, 12/16/2019, Additional history exists Breast Cancer Screening 11/13/2024 11/13/2022 Cervical Cancer Screening: HPV 09/23/2026 09/23/2021 Cholesterol Screening (Lipid Panel) 10/28/2027 10/27/2022, 10/27/2022, 10/27/2022, Additional history exists DTaP,Tdap,and Td Vaccines (3 - Td or Tdap) 10/27/2032 10/27/2022, 04/05/2017 Hepatitis C Screening Completed 01/27/2022 HIV Screening Completed 03/03/2022 HIB Vaccines Aged Out No longer eligi ble based on patient's age to complete this topic HPV Vaccines Aged Out No longer eligi ble based on patient's age to complete this topic Hepatitis A Vaccines Aged Out No long er eligible based on patient's age to complete this topic IPV Vaccines Aged Out No longer eligi ble based on patient's age to complete this topic MMR Vaccines Aged Out No longer eligi ble based on patient's age to complete this topic Meningococcal ACWY Vaccine Aged Out N o longer eligible based on patient's age to complete this topic RSV Immunization Patients Under 20 months Aged Out No longer eligible based on patient's age to complete this topic Varicella Vaccines Aged Out No longer eligible based on patient's age to complete this topic Procedures Procedure Name Priority Date/Time Associated Diagnosis Comments US PELVIS NON OB COMPLETE W TRANSVAGINAL Routine 03/23/2024 1:22 PM EST Pelvic pain TRICHOMONAS VAGINALIS ANTIGEN Routine 03/03/2024 9:37 AM EST Pelvic pain Acute vaginitis WET PREP, GENITAL Routine 03/03/2024 9:3 7 AM EST Pelvic pain Acute vaginitis CHLAMYDIA TRACHOMATIS AND NEISSERIA GONORRHOEAE PCR Routine 03/03/2024 9:37 AM EST Pelvic pain Acute vaginitis LIPID PANEL Routine 10/27/2022 HIV SCREENING Routine 03/03/2022 HPV Routine 09/23/2021 from Last 3 Months or Most Recently Relevant to Health Maintenance Results * US Pelvis Non OB Complete [...] Signed Date: 03/27/2024 15:42 ET Workstation ID: [id number] Transcribed By: Self Edit Transcribed Date: 03/27/2024 [...] Signed Date: 03/27/2024 15:42 ET Workstation ID: [id number] Transcribed By: Self Edit Transcribed Date: 03/27/2024 15:36 ET Cathy Mckeon CNM [facility] [place] PROCEDURES * Trichomonas vaginalis antigen (03/03/2024 9:37 AM EST) Trichomonas vaginalis Negative Negative 03/03/2024 6:34 PM EST [facility] Swab Vaginal structure / Unknown Non-blood Collection / Unknown 03/03/2024 9:37 AM EST 03/03/2024 4:10 PM EST Cathy Mckeon CNM LAB MICROBIOLOGY - G ENERAL ORDERABLES Performing Organization Address City/[facility]/ZIP Co de Phone Number [facility] [address] [place] [address], [place] [phone] * Chlamydia trachomatis and Neisseria gonorrhoeae molecular study (03/03/2024 9:37 AM EST) Neisseria gonorrhoeae PCR Negative Negative LAB MOLECULAR DIAGNOSTICS METHOD 03/04/2024 9:43 AM EST [facility] Chlamydia trachomatis PCR Negative Negative LAB MOLECULAR DIAGNOSTICS METHOD 03/04/2024 9:43 AM EST [facility] Swab Cervix uteri structure / Unknown Non-blood Collection / Unknown 03/03/2024 9:37 AM EST 03/03/2024 4:10 PM EST [facility] LAB MICROBIOLOGY - G ENERAL ORDERABLES Performing Organization Address [facility]/ZIP Co de Phone Number [facility] [address] [place] [address], [place] [phone] * (ABNORMAL) Wet prep, genital (03/03/2024 9:37 AM EST) Pathologist [facility] Clue Cells, Wet Prep Negative Negative 03/03/2024 6:34 PM [facility] Yeast, Wet Prep Positive(A) Negative 03/03/2024 6:34 PM EST [facility] Trichomonas, Wet Prep Indeterminate Negative 03/03/2024 6:34 PM EST [facility] Comment:Refer to Trichomonas antigen. Swab Vaginal structure / Unknown Non-blood Collection / Unknown 03/03/2024 9:37 AM EST 03/03/2024 4:10 PM EST [facility] LAB MICROBIOLOGY - G ENERAL ORDERABLES Performing Organization Address City/[facility]/ZIP Co de Phone Number [facility] [address] [place] [address], [place] [phone] * Lipid panel (10/27/2022) [facility] Triglycerides 0 mg/dL Comment:No interpretation, a bstracted Cholesterol 0 mg/dL Comment:No interpretation, a bstracted HDL 0 mg/dL Comment:No interpretation, a bstracted LDL Cholesterol 0 mg/dL Comment:No interpretation, a bstracted Blood Venous blood specimen / Unknown Historical Provider LAB BLOOD ORDERAB LES * HIV Screening (03/03/2022) [facility] HIV Screening Abstracted Historical Provider MD MASSIEL STEWART E * Cervical Cancer Screening: HPV (09/23/2021) [facility] Cervical Cancer Screening: HPV Negative, abstracted Historical Provider MD MASSIEL Pennington from Last 3 Months or Most Recently Relevant to Health Maintenance Advance Directives Documents on File Type Date Recorded Patient Chief Concierge Expl anation Health Care Decision (hx) 03/21/2016 AD LENNON DIRECTIVE Health Care Decision (hx) 03/21/2016 AD LENNON DIRECTIVE Health Care Decision (hx) 03/21/2016 AD LENNON DIRECTIVE Care Teams Tailoring Teacher Relationship Specialty Start Date End Date Ailyn Velázquez MD [address] [facility] [address] [place] [phone] PCP - General 10/07/23
--- OUTSIDE RECORDS SUMMARY | 2024-03-29 09:31 | XMS_ITS | Encounter Summary ---
Author Organization [employer] Address [address] [place] [address] Care Team Providers Care Adult Protective Caseworker Name Role Phone Ailyn Velázquez MD Primary Care Provider + Reason for Visit * Reason Onset Date Comments Results 03/28/2024 Encounter Details Date Type Department Care Team (Late Contact Info) Description 03/28/2024 Telephone Obstetrics & Gynecology [address] [phone] Cathy Mckeon, ANTONETTE [address] [place] [phone] Results Social History Tobacco Use Types Packs/Day Years [...] on file documented as of this encounter Progress Notes * Rocio Gutierrez - 03/28/2024 3:25 PM EST Pt calling requesting callback with U/S results from 03/03/24. Ps advise documented in this encounter Plan of Treatment Upcoming Encounters Date Type Department Care Team (Late Contact Info) Description 06/01/2024 11:15 AM EDT Office Visit Obstetrics & Gynecology [address] [phone] Cathy Mckeon ANTONETTE [address] [place] [address] documented as of this encounter Visit Diagnoses Not on filedocumented in this encounter Care Teams Adult Protective Caseworker Relationship Specialty Start Date End Date Ailyn Velázquez MD [address] [place] [phone] PCP - General 10/07/23 documented as of this encounter
--- OUTSIDE RECORDS SUMMARY | 2024-03-29 09:31 | XMS_ITS | Encounter Summary ---
Author Organization [employer] Address [address] [place] [address] Care Team Providers Care Clerk Travel Reservations Name Role Phone Ailyn Velázquez MD Primary Care Provider + Reason for Referral * Imaging (Routine) - Closed Specialty Diagnoses / Procedures Referred By Madison de león Referred To Contact Radiology Diagnoses Pelvic pain Procedures US Pelvis Non OB Complete w Transvaginal Cathy Mckeon CNM [address] [place] [address] [phone] Referral ID Status Reason Start Date Expiration Date Visits Re quested Visits Authorized [id number] Closed 03/03/2024 03/03/2025 1 1 Reason for Visit * Reason Comments Vaginitis/Bacterial Vaginosis Encounter Details Date Type Department Care Team (Late st Contact Info) Description 03/03/2024 9:15 AM EST Office Visit Obstetrics & Gynecology - [address] [phone] Cathy Mckeon CNM [address] [place] [address] Pelvic pain (Primary Dx); Acute vaginitis; Bartholin's gland cyst Social History Tobacco Use Types Packs/Day Years [...] on file documented as of this encounter Last Filed Vital Signs Vital Sign Reading [...] Mass Index 33.61 03/03/2024 9:18 AM EST documented in this encounter Ordered Prescriptions Prescription Sig Dispensed Refills Start Date End Da te conjugated estrogens (Premarin) vaginal cream Insert 0.5 g into the vagina 2 (two) times a week. INSERT 1 APPLICATORFUL 30 g 03/06/2024 terconazole (TERAZOL 7) 0.4 % vaginal cream Insert 1 applicator into the vagina at bedtime for 7 days. 45 g 03/07/2024 03/14/2024 cephalexin (KEFLEX) 500 mg capsule Take 1 capsule (500 mg total) by mouth 2 (two) times a day for 5 days. 10 each 03/03/2024 03/08/2024 documented in this encounter Progress Notes * Delmar Prajapati MA - 03/03/2024 9:15 AM EST Pt here c/o vaginal itch and discharge * Cathy Mckeon CNM - 03/03/2024 9:15 AM EST Chief Complaint Patient presents with Vaginitis/Bacterial Vaginosis Subjective Chief complaint: Brittaney Barnett 48 y.o. female complains of vaginal discharge/itch. HPI: Symptoms reported: vaginal discharge, vaginal itching, and dryness/ dyspareunia- requesting refill on Premarin Also reports intermittent pelvic pain , denies any urine sx Onset:: 3 weeks Course: intermittent Progression: worsened States her recently started new medication for Crohn's in Jan. Helpful treatments: none Unhelpful treatments tried: none Objective Physical Exam: General Appearance: alert and oriented, in no acute distress Abdomen: soft, non-tender; bowel sounds normal; no masses, no organomegaly Pelvic Exam: uterus normal size, shape, and consistency, no cervical motion tenderness, cervix normal in appearance, no adnexal masses or tenderness, rectovaginal septum normal, and positive findings: right bartholin cyst or vaginal discharge: yellow and thick Urine dipstick: not done. Assessment/Plan Pelvic pain (Primary) - US Pelvis Non OB Complete w Transvaginal; Future - Chlamydia trachomatis and Neisseria gonorrhoeae molecular study - Wet prep, genital - Trichomonas vaginalis antigen Acute vaginitis - Chlamydia trachomatis and Neisseria gonorrhoeae molecular study - Wet prep, genital - Trichomonas vaginalis antigen Bartholin's gland cyst Other orders - conjugated estrogens (Premarin) vaginal cream; Insert 0.5 g into the vagina 2 (two) times a week.INSERT 1 APPLICATORFUL Dispense: 30 g; Refill: 0 - cephalexin (KEFLEX) 500 mg capsule; Take 1 capsule (500 mg total) by mouth 2 (two) times a day for 5 days. Dispense: 10 each; Refill: 0 - terconazole (TERAZOL 7) 0.4 % vaginal cream; Insert 1 applicator into the vagina at bedtime for 7days. Dispense: 45 g; Refill: 0 Problem List Items Addressed This Visit None Visit Diagnoses Pelvic pain - Primary Relevant Orders US Pelvis Non OB Complete w Transvaginal Chlamydia trachomatis and Neisseria gonorrhoeae molecular study (Completed) Wet prep, genital (Completed) Trichomonas vaginalis antigen (Completed) Acute vaginitis Relevant Orders Chlamydia trachomatis and Neisseria gonorrhoeae molecular study (Completed) Wet prep, genital (Completed) Trichomonas vaginalis antigen (Completed) Bartholin's gland cyst Pending results, will treat as needed. In the meantime cont with conservative measures- Heat / NSAIDs as needed for pain Keflex for the Bartholin's cyst Re-order Premarin Topical skin barrier for vulvar irritation as needed Cathy Mckeon CNM Note about provider documentation: If you are the patient named in this chart and are reviewing your medical notes, please note that medical documentation is often written with abbreviations and medical terminology, and directed for other providers who may be involved in your care as well. Documentation is critical to record what has happened, what test were ordered, and how they are interpreted w ith the resulting diagnoses. These notes have been made available for patient review but not specifically written for the patient. Important health information is always given to my patients and clinical instructions. Please review your after visit summary and/or contact our clinical staff if you have any questions. documented in this encounter Plan of Treatment Upcoming Encounters Date Type Department Care Team (Late st Contact Info) Description 06/01/2024 11:15 AM EDT Office Visit Obstetrics & Gynecology - [address] [phone] Cathy Mckeon CNM [address] [place] [phone] documented as of this encounter Procedures Procedure Name Priority Date/Time Associated Diagnosis Comments TRICHOMONAS VAGINALIS ANTIGEN Routine 03/03/2024 9:37 AM EST Pelvic pain Acute vaginitis CHLAMYDIA TRACHOMATIS AND NEISSERIA GONORRHOEAE PCR Routine 03/03/2024 9:37 AM EST Pelvic pain Acute vaginitis WET PREP, GENITAL Routine 03/03/2024 9:3 7 AM EST Pelvic pain Acute vaginitis documented in this encounter Results * US [...] Signed Date: 03/27/2024 15:42 ET Workstation ID: [id number] Transcribed By: Self Edit Transcribed Date: 03/27/2024 [...] Signed Date: 03/27/2024 15:42 ET Workstation ID: [id number] Transcribed By: Self Edit Transcribed Date: 03/27/2024 15:36 ET Cathy Mckeon CNM IMG US PROCEDURES * Trichomonas vaginalis antigen (03/03/2024 9:37 AM EST) Trichomonas vaginalis Negative Negative 03/03/2024 6:34 PM EST [facility] Swab Vaginal structure / Unknown Non-blood Collection / Unknown 03/03/2024 9:37 AM EST 03/03/2024 4:10 PM EST Cathy Mckeon [facility] MICROBIOLOGY - G ENERAL ORDERABLES Performing Organization Address [facility]/ZIP Co de Phone Number [facility] [address] [place] [address], * (ABNORMAL) Wet prep, genital (03/03/2024 9:37 AM EST) Clue Cells, Wet Prep Negative Negative 03/03/2024 6:34 PM EST [facility] Yeast, Wet Prep Positive(A) Negative 03/03/2024 6:34 PM EST [facility] Trichomonas, Wet Prep Indeterminate Negative 03/03/2024 6:34 PM EST [facility] Comment:Refer to Trichomonas antigen. Swab Vaginal structure / Unknown Non-blood Collection / Unknown 03/03/2024 9:37 AM EST 03/03/2024 4:10 PM EST Cathy Mckeon [facility] MICROBIOLOGY - G ENERAL ORDERABLES [facility] [address] [place] [address], * Chlamydia trachomatis and Neisseria gonorrhoeae molecular study (03/03/2024 9:37 AM EST) Neisseria gonorrhoeae PCR Negative Negative LAB MOLECULAR DIAGNOSTICS METHOD 03/04/2024 9:43 AM EST [facility] Chlamydia trachomatis PCR Negative Negative LAB MOLECULAR DIAGNOSTICS METHOD 03/04/2024 9:43 AM EST [facility] Swab Cervix uteri structure / Unknown Non-blood Collection / Unknown 03/03/2024 9:37 AM EST 03/03/2024 4:10 PM EST Cathy Mckeon [facility] MICROBIOLOGY - G ENERAL ORDERABLES [facility] [address] [place] [address], documented in this encounter Visit Diagnoses Diagnosis Pelvic pain- Primary Acute vaginitis Unspecified vaginitis and vulvovaginitis Bartholin's gland cyst Cyst of Bartholin's gland Pelvic pain documented in this encounter Discontinued Medications Medication Sig Discontinue Reason Start Date End Da te conjugated estrogens (Premarin) vaginal cream Insert into the vagina 2 (two) times a week. INSERT 1 APPLICATORFUL Reorder 05/11/2022 03/03/2024 documented as of this encounter Care Teams Clerk Travel Reservations Relationship Specialty Start Date End Date Ailyn Velázquez MD [address] [place] [phone] PCP - General 10/07/23 documented as of this encounter
--- OUTSIDE RECORDS SUMMARY | 2024-03-29 09:32 | XMS_ITS | Clinical Summary ---
Author Organization [facility] Address [address] [place] [address] Care Team Providers Care Cafeteria Server Name Role Phone Becky Gutierrez PA-C Primary Care Provider Source Comments PLEASE NOTE, if this patient is a minor, it may be UNLAWFUL to discuss sensitive information that is contained in these records (such as FAMILY PLANNING, MENTAL HEALTH or SUBSTANCE ABUSE) with the minor patient's parent or other person without the patient's specific authorization.[facility] Allergies Active Allergy Reactions Criticality Noted Date Comments Tramadol Nausea and Vomiting 08/15/2015 Medications cyclobenzaprine (FLEXERIL) 10 mg tablet Take 1 Tablet by mouth nightly at bedtime as needed for muscle spasms 30 Tablet 1 06/13/19 21 Active meloxicam (MOBIC) 15 mg tabletIndications :Primary osteoarthritis involving multiple joints TAKE 1 TABLET BY MOUTH EVERY DAY WITH FOOD NEEDED FOR PAIN 04/21/19 22 Active folic acid (FOLVITE) 1 mg tabletIndications :Routine general medical examination at a health care facility Take 1,000 mcg by mouth once daily 04/21/19 22 Active EPINEPHrine (EPIPEN) 0.3 mg/0.3 mL pen injectorIndicatio ns:Routine general medical examination at a health care facility Inject 0.3 mg into the muscle 09/12/19 21 Active ferrous sulfate 325 mg (65 mg iron) tablet Take 1 Tablet by mouth 2 (two) times daily with a meal 60 Tablet 11 12/31/19 22 Active ascorbic acid, vitamin C, (VITAMIN C) 250 mg tablet Take 1 Tablet by mouth 2 (two) times daily 60 Tablet 11 12/31/19 22 Active triamcinolone (KENALOG) 0.1 % creamIndications: Atopic dermatitis, unspecified type APPLY TOPICALLY TO THE AFFECTED AREA 3 TIMES A WEEK 80 g 1 04/07/19 23 Active loratadine (CLARITIN) 10 mg tabletIndications :Non-seasonal allergic rhinitis, unspecified trigger Take 1 Tablet by mouth nightly at bedtime 90 Tablet 1 10/13/19 23 Active hydrocortisone 1 % creamIndications: Psoriasis APPLY TOPICALLY ONCE DAILY NEEDED FOR FACIAL RASH 56 g 1 04/30/19 24 Active VENTOLIN HFA 90 mcg/actuation inhaler INHALE 2 PUFFS INTO THE LUNGS EVERY 4 HOURS NEEDED FOR SHORTNESS OF BREATH OR WHEEZING 18 g 5 12/15/19 24 Active ibuprofen 800 mg tabletIndications :Neck pain,Primary osteoarthritis involving multiple joints TAKE 1 TABLET BY MOUTH THREE TIMES DAILY NEEDED FOR PAIN 270 Tablet 2 12/15/19 24 Active SYMBICORT 160-4.5 mcg/actuation inhalerIndication s:Mild intermittent asthma with exacerbation INHALE 2 PUFFS INTO THE LUNGS TWICE DAILY 30.6 g 3 12/15/19 24 Active triamcinolone (KENALOG) 0.1 % ointmentIndicatio ns:Psoriasis APPLY TOPICALLY TO THE AFFECTED AREA EVERY DAY NEEDED FOR PSORIASIS 60 g 1 12/15/19 24 Active omeprazole (PRILOSEC) [address] capsuleIndication s:Dyspepsia TAKE 1 CAPSULE BY MOUTH EVERY MORNING BEFORE BREAKFAST 90 Capsule 1 03/14/19 25 Active omeprazole (PRILOSEC) [address] capsuleIndication s:Dyspepsia TAKE 1 CAPSULE BY MOUTH EVERY MORNING BEFORE BREAKFAST 90 Capsule 1 01/22/20 23 025 Discontinued Active Problems Problem Noted Date Diagnosed Date Fibromyalgia, Dr. Nelson 12/27/2019 Neck pain 12/30/2018 Primary osteoarthritis involving multiple joints 12/30/2018 Pre-diabetes 06/21/2018 S/P left knee arthroscopy 05/13/2018 [facility] 2018 S/P RIGHT rotator cuff surgery 01/25/2018 [facility] Migraine headaches 03/29/2014 Asthma, mild intermittent 12/16/2012 Resolved Problems Problem Noted Date Diagnosed Date Resolved Date Plantar fasciitis 12/30/2018 04/27/2022 Right wrist tendonitis s/p s urgery 08/25/2017 [facility] 06/21/2018 04/27/2022 Immunizations Name Administration Dates Next Due Flu, Adjuvant, 65y+ (Fluad) 12/16/2019 Flu, Preservative Free 12/16/2019 INFLUENZA, SEASONAL, INJECTABLE, PRESERVATIVE FR EE 12/16/2012 Influenza, Intradermal, Quad rivalent, Preservative Free 12/16/2012 PNEUMOCOCCAL POLYSACCHARIDE PPV23 07/22/2016 PPD 04/09/2020,03/06/2015 TDAP 10/27/2022 Td(adult),2 Lf tetanus toxoid,preservative free 04/05/2017 Family History Medical History Relation Name Comments Cancer Mother unk Hypertension Mother Relation Name Status Comments Mother Social History Tobacco Use Types Packs/Day Years Used Date Smoking Tobacco: Never Smokeless Tobacco: Never Tobacco Cessation:Counseling Given: Not Answered Alcohol Use Standard Drinks/Week Comments No 0 (1 standard drink = 0.6 oz pur e alcohol) Social Connections Answer Date Recorded Connectedness 0 06/17/2021 Financial Resource Strain Answer Date R ecorded Financial Resource Strain 0 2021 Stress Answer Date Recorded Stress 0 06/17/2021 Physical Activity Answer Date Recorded Physical Activity 0 10/11/2018 Food Insecurity Answer Date Recorded Food 0 06/17/2021 Transportation Needs Answer Date Record ed Transportation 0 06/17/2021 Housing Stability Answer Date Recorded Housing 0 06/17/2021 Safety and Environment Answer Date Scott rded Safety 0 06/17/2021 Utilities Answer Date Recorded Utilities 0 06/17/2021 Employment Answer Date Recorded Employment 0 10/11/2018 Comments No Sex and Gender Information Value Date Recorded Sex Assigned at Female 10/22/2017 1:23 PM PDT Legal Sex Female 11:01 AM PDT Gender Identity Female 10/22/2017 1:23 PM PDT Sexual Orientation Don't know 10/22/2017 1: 23 PM PDT Last Filed Vital Signs Vital Sign Reading Time Taken Comments Blood Pressure 112/70 10/27/2022 8:42 AM EDT Pulse 65 10/27/2022 8:42 AM EDT Temperature 36.5 ??C (97.7 ??F) 10/27/2022 8:42 AM ED T Respiratory Rate 16 10/27/2022 8:42 AM EDT Oxygen Saturation 98% 10/27/2022 8:42 AM EDT Inhaled Oxygen Concentration - - Weight 87.1 kg (192 lb) 10/27/2022 8:42 AM EDT Height 165.1 cm (5' 5 ) 10/27/2022 8:42 AM EDT Body Mass Index 31.95 10/27/2022 8:42 AM EDT Plan of Treatment Health Maintenance Due Date Last Done Comments Tobacco Screening 1977 Imm-Pneumococcal (2 of 2 - PCV) 07/22/2017 7 Relationship Safety Screening/Counseling 06/17/2022 06/17/2021 CT Colonography 2022 Colonoscopy 2022 Colorectal Cancer Screening 2022 FIT/gFOBT 2022 Fecal DNA 2022 Flexible Sigmoidoscopy 2022 [id number] ( season) 2023 021, 11/07/2020 Imm-Influenza (#1) 2023 12/16/2019, 1 , 12/16/2012 Hypertension Screening (#1) 10/27/2023 Annual Preventive Care Visit 10/28/202306/2022, 06/17/2021, 12/27/2019, Additional history exists Diabetes Screening 10/28/2023 10/27/2022, 0 10/27/2022, 03/03/2022, Additional history exists Breast Cancer Screening (Mammogram) 11/14/2023 11/13/2022, 06/26/2021, 06/26/2021, Additional history exists Alcohol and Drug Screen 02/23/2024 02/24/19 23, 06/17/2021, 11/27/2019, Additional history exists Depression Annual Screen 02/23/2024 023, 10/04/2015, 03/29/2014 (Managed by Outside Provider) Pap Smear 09/23/2024 09/23/2021, 08/0 03/2021, 10/31/2019, Additional history exists Cervical Cancer Screening 09/23/2026 HPV Screening 09/23/2026 09/23/2021, 12/31/2018 Pap + HPV 09/23/2026 09/23/2021, 0803/2021, 10/31/2019, Additional history exists Lipid Screening 10/28/2027 10/27/2022, 110 08/2021, 06/17/2021, Additional history exists Imm-DTaP/Tdap/Td (2 - Td or Tdap) 10/27/2032 023, 04/05/2017 Hepatitis C Screening Completed 01/27/2022 , 01/27/2022, 10/04/2015 HIV Screening Completed 03/03/2022, 07/2021, 06/21/2018 Cervical Ablation/Cold-Knife Conization Discontinued Cervical Cryotherapy Discontinued Colposcopy Discontinued Endometrial Biopsy Discontinued Excision/Leep Discontinued HPV Genotyping Discontinued Imm-Hepatitis B Discontinued Vaginal Pap Discontinued Vulvoscopy Discontinued Procedures Procedure Name Priority Date/Time Associated Diagnosis Comments MAMMO DIGITAL SCREEN STEFF W CAD 3D Routine 11/13/2022 3:00 AM EDT Breast cancer screening by mammogram COMPREHENSIVE METABOLIC PANEL Routine 10/27/2022 9:22 AM EDT Routine general medical examination at a health care facility Mild intermittent asthma without complication Pre-diabetes Psoriasis Colon cancer screening LIPID PANEL Routine 10/27/2022 9:22 AM EDT Routine general medical examination at a health care facility Mild intermittent asthma without complication Pre-diabetes Psoriasis Colon cancer screening HIV 1/2 AG & AB W/RFLX (4TH GEN) Routine 03/03/2022 8:45 AM EST Pre-op exam Pre-diabetes Mild intermittent asthma without complication Encounter for plastic surgery follow-up HEPATITIS C AB W/RFLX HCV RNA, QT, RT PCR Routine 01/27/2022 8:44 AM EST Memory changes New onset headache Pre-diabetes PAP SMEAR W/HPV, ABSTRACTED Routine 09/23/2021 10:00 AM EDT PAP W/ HPV 09/23/2021 3:00 AM EDT from Last 3 Months or Most Recently Relevant to Health Maintenance Results * MAMMO DIGITAL SCREEN STEFF W CAD 3D (11/13/2022 3:00 AM EDT) 11/13/2022 3:00 AM EDT us Becky Gutierrez PA-C IMG MAMMO Edited Resul t - Final * (ABNORMAL) LIPID PANEL (10/27/2022 9:22 AM EDT) CHOLESTEROL, TOTAL 224(H) <200 mg/dL [facility] HDL CHOLESTEROL 58 > OR = 50 mg/dL [facility] TRIGLYCERIDES 114 <150 mg/dL [facility] LDL-CHOLESTEROL 143(H) 99 mg/dL (calc) [facility] Comment: Reference range: <100 Desirable range <100 mg/dL for primary prevention; ?? <70 mg/dL for patients with CHD or diabetic patients with > or = 2 CHD risk factors. LDL-C is now calculated using the Morro-Veto calculation, which is a validated novel method providing better accuracy than the Friedewald equation in the estimation of LDL-C. Morro SS et al. JESE. 2013;310(19): 1606-5111 (http://education.[employer]/faq/ZYG495) CHOL/HDLC RATIO 3.9 <5.0 (calc) [facility] NON-HDL CHOLESTEROL 166(H) <130 mg/dL (calc) [facility] Comment: For patients with diabetes plus 1 major ASCVD risk factor, treating to a non-HDL-C goal of <100 mg/dL (LDL-C of <70 mg/dL) is considered a therapeutic option. Blood Blood / Unknown 10/27/2022 9 :22 AM EDT 10/27/2022 9:22 AM EDT Narrative [employer] - 10/28/2022 4:56 PM EDT FASTING:YES us Becky Gutierrez PA-C LAB - BLOOD DRAW Final Resul t [facility] [facility] [address] [place] [id number], [facility] [address] [address] * (ABNORMAL) COMPREHENSIVE METABOLIC PANEL (10/27/2022 9:22 AM EDT) GLUCOSE 101(H) 65 - 99 mg/dL [facility] Comment: ?Fasting reference interval For someone without known diabetes, a glucose value between 100 and 125 mg/dL is consistent with prediabetes and should be confirmed with a follow-up test. UREA NITROGEN (BUN) 20 7 - 25 mg/dL [facility] CREATININE (blood) 0.74 0.50 - 0.99 mg/dL [facility] EGFR 102 > OR = 60 mL/min/1. 73m2 [facility] BUN/CREATININE RATIO SEE NOTE: [facility] Comment: ?? Not Reported: BUN and Creatinine are within ?? reference range. ? SODIUM 138 135 - 146 mmol/L [facility] POTASSIUM 5.1 3.5 - 5.3 mmol/L [facility] CHLORIDE 106 98 - 110 mmol/L [facility] CARBON DIOXIDE 25 20 - 32 mmol/L [facility] CALCIUM 9.1 8.6 - 10.2 mg/dL [facility] PROTEIN, TOTAL 7.0 6.1 - 8.1 g/dL [facility] ALBUMIN 4.1 3.6 - 5.1 g/dL [facility] GLOBULIN 2.9 1.9 - 3.7 g/dL (calc) [facility] ALBUMIN/GLOBULI N RATIO 1.4 1.0 - 2.5 (calc) [facility] BILIRUBIN, TOTAL 0.5 0.2 - 1.2 mg/dL [facility] ALKALINE PHOSPHATASE 60 31 - 125 U/L [facility] AST 15 10 - 35 U/L [facility] ALT 12 6 - 29 U/L [facility] Blood Blood / Unknown 10/27/2022 9 :22 AM EDT 10/27/2022 9:22 AM EDT Narrative [facility] - 10/28/2022 4:56 PM EDT FASTING:YES us Becky Gutierrez PA-C LAB - BLOOD DRAW Edited Resu lt - Final [facility] [address] [address], [facility] [address] [address] * HIV 1/2 AG & AB W/RFLX (4TH GEN) (03/03/2022 8:45 AM EST) Pathologist [facility] HIV AG/AB, 4TH GEN NON-REAC TIVE NON-REAC TIVE [facility] Comment: HIV-1 antigen and HIV-1/HIV-2 antibodies were not detected. There is no laboratory evidence of HIV infection. PLEASE NOTE: This information has been disclosed to you from records whose confidentiality may be protected by state law. ??If your state requires such protection, then the state law prohibits you from making any further disclosure of the information without the specific written consent of the person to whom it pertains, or as otherwise permitted by law. A general authorization for the release of medical or other information is NOT sufficient for this purpose. ?? For additional information please refer to http://education.[employer]/faq/INO202 (This link is being provided for informational/ educational purposes only.) The performance of this assay has not been clinically validated in patients less than 2 years old. Blood Blood / Unknown 03/03/2022 8 :45 AM EST 03/03/2022 8:46 AM EST Becky Gutierrez PA-C LAB - BLOOD DRAW Final Resul t [facility] [address] [address], [facility] [address] ([address]) [place] [address] * HEPATITIS C AB W/RFLX HCV RNA, QT, RT PCR (01/27/2022 8:44 AM EST) Pathologist [facility] HEPATITIS C ANTIBODY NON-REACT MERRY NON-REACT MERRY [facility] SIGNAL TO CUT-OFF 0.08 <1.00 [facility] Comment: HCV antibody was non-reactive. There is no laboratory evidence of HCV infection. In most cases, no further action is required. However, if recent HCV exposure is suspected, a test for HCV RNA (test code 67494) is suggested. For additional information please refer to http://education.[employer].Breadtrip/faq/CDY59c6 (This link is being provided for informational/ educational purposes only.) Blood Blood / Unknown 01/27/2022 8 :44 AM EST 01/27/2022 8:45 AM EST Becky Gutierrez PA-C LAB - BLOOD DRAW Edited Resu lt - Final Performing Organization Address City/[facility]/ZIP Co de Phone Number [facility] [address] [place] [id number], [facility] [address] [address] * PAP SMEAR W/HPV (09/23/2021 10:00 AM EDT) PAP SMEAR INTERPRETATION NORMAL NORMAL [facility] HPV (HUMAN PAPILLOMA) NEGATIVE NEGATIVE [facility] HPV TYPE 16 NEGATIVE NEGATIVE [facility] HPV TYPE 18 NEGATIVE NEGATIVE [facility] Swab 09/23/2021 10:0 0 AM EDT Impressions [facility] - 03/02/2022 1:34 PM EST Negative for squamous intraepithelial lesion and malignancy Fungal organisms morphologically consistent with Sharita spp. High risk HPV assay: Negative Provider [facility] LAB - NO BLOOD DRAW Final Result Performing Organization Address City/[facility]/ZIP Co de Phone Number [facility] [address] [place] [address], * PAP W/ HPV (09/23/2021 3:00 AM EDT) 09/23/2021 3:00 AM EDT us Becky Gutierrez PA-C LAB - NO BLOOD DRAW Final Re sult from Last 3 Months or Most Recently Relevant to Health Maintenance Insurance [id number] Care Teams Cafeteria Server Relationship Specialty Start Date End Date Becky Gutierrez PA-C [address] [place] [address] PCP - General Internal Medicine 10/20/17
--- NOTE | 2024-03-29 10:11 | ED.GENADULT ---
HPI - General Adult General Chief complaint: Allergic Reaction Stated complaint: allergic reaction Time Seen by Provider: 03/29/24 10:02 Source: patient, RN notes reviewed and old records reviewed Mode of arrival: ambulatory Limitations: no limitations History of Present Illness ED Provider: Raúl HPI narrative: Patient is a 48-year-old female with history of psoriasis, asthma presenting to the emergency department with complaint of pruritic rash/hives since yesterday. States that she was previously using calcipotriene cream for her psoriasis, but ran out. Called PCP yesterday and was given a new prescription for this without change in symptoms. Has also been taking benadryl. Reports mild shortness of breath. Denies any swelling to lips/tongue. Denies abdominal pain, nausea, vomiting, diarrhea. MD complaint: rash Onset (ago): day(s) Treatments prior to arrival: other Related Data Home Medications ?Medication ?Instructions ?Recorded ?Confirmed betamethasone dipropionate 0.05 % appl topical 05/17/23 topical cream Previous Rx's ?Medication ?Instructions ?Recorded acetaminophen 500 mg tablet 500 mg PO Q6H PRN fever or pain 04/15/23 #20 tabs ibuprofen 600 mg tablet 600 mg PO Q6H PRN fever or pain 04/15/23 #20 tabs ondansetron HCl 4 mg tablet 4 mg PO Q6H PRN nausea and 04/15/23 vomiting #14 tabs montelukast 10 mg tablet 10 mg PO BEDTIME 30 days #30 tabs 05/17/23 (Singulair) famotidine 20 mg tablet 20 mg PO DAILY #14 tabs 03/29/24 prednisone 20 mg tablet See Rx Instructions .Route 03/29/24 .COMPLEX #18 tabs Allergies Allergy/AdvReac Type Severity Reaction Status Date / Time tramadol [TRAMADOL] Allergy Unknown NAUSEA, Verified 03/29/24 09:02 VOMITING, DIZZINESS Review of Systems Review of Systems: As per HPI Yes all other systems are reviewed and are negative Constitutional: Constitutional: Reports as per HPI [facility] Past Medical History Medical History (Updated 03/29/24 @ 13:13 by Chaya Olsen NP) Rash Asthma Allergy Social History Social History (Updated 05/17/23 @ 15:09 by SHARITA Hicks) Patient Tobacco Use Status: Never used Tobacco Advance Directives: No Advance Directives Information Provided: Yes Do you have a plan to hurt others: No Plan Physical Exam ED Vital Signs: Vital Signs - 24 hr 03/29/24 08:57 03/29/24 11:06 Temperature 97.8 F 97.3 F Pulse Rate 88 75 Respiratory Rate 22 H Blood Pressure 132/72 109/45 L Pulse Oximetry 100 99 Oxygen Delivery Method Room Air Room Air BMI result Body Mass Index 33.5 Vital signs have been reviewed and appear to be correct. Blood pressure normal. Heart rate normal. Respiratory rate normal. Temperature normal. Oxygen saturation normal. Const General: cooperative, healthy appearing and no acute distress Orientation/consciousness: oriented to person, oriented to place, oriented to time and patient oriented x3 Limitations: no limitations HENMT Head: Yes normocephalic and Yes atraumatic Ears: external ears normal General nose exam: Normal external nose present Face and sinus: Yes face symmetric Mouth: Normal oral and palatal mucosa present, lip normal, tongue normal, oropharynx normal, moist mucous membranes and no muffled voice Throat: Yes posterior oropharynx normal, Yes uvula midline and No uvular edema Eyes Pupils: Equal, round and reactive pupils present Neck Neck: Yes normal visual inspection and Yes supple Resp Effort & Inspection: normal respiratory effort and able to speak in complete sentences Auscultation: clear to auscultation bilaterally and no wheezes Cardio Rate: regular rate Rhythm: regular rhythm Heart sounds: S1 normal heart sound present and S2 normal heart sound present GI Palpation (GI): Soft to palpation and nontender Auscultation: normoactive bowel sounds General: Yes no CVA tenderness Back/Spine/Pelvis Back: no CVA tenderness Skin General skin exam: elasticity normal and turgor normal Rashes: rashes noted hives diffuse Neuro General: oriented to person, oriented to place, oriented to time, patient oriented x3, moves all extremities, no focal motor deficits and CN's II-XI intact bilaterally Cranial nerves: Yes Equal, round and reactive pupils present Cognition (Neuro): normal cognition Extrem General: Yes full ROM, Yes no pedal edema and Yes no calf tenderness Psych Mental Status: mental status grossly normal Affect: normal affect Thought process: Normal thought process present Medications Administered Discontinued Medications Generic Name Dose Route Start Last Admin Trade Name Freq PRN Reason Stop Dose Admin Diphenhydramine HCl 25 mg 03/29/24 10:11 03/29/24 10:43 Diphenhydramine Hcl 50 Mg/Ml Vial IVPUSH 03/29/24 10:12 25 mg ONCE ONE Administration Famotidine 20 mg 03/29/24 10:11 03/29/24 10:43 Famotidine/Pf 20 Mg/2 Ml Vial IVPUSH 03/29/24 10:12 20 mg ONCE ONE Administration Sodium Chloride 1,000 mls @ 999 mls/hr 03/29/24 10:15 03/29/24 12:00 Ns IV 03/29/24 11:15 Infused .Q1H1M MARIAELENA Infusion Methylprednisolone Sodium Succinate 125 mg 03/29/24 10:11 03/29/24 10:43 Methylprednisolone Sod Succ 125 Mg/2 Ml Vial IVPUSH 03/29/24 10:12 125 mg ONCE ONE Administration Medical Decision Making Medical Decision Making [facility] Narrative: Patient is a 48-year-old female with history of psoriasis, asthma presenting to the emergency department with complaint of pruritic rash/hives since yesterday. On exam patient is awake, A+Ox3, VS WNL, afebrile, normal neurological exam without focal deficits, physical exam findings as above. Given reported symptoms and physical exam findings, initial differential includes but is not limited to atopic dermatitis, contact dermatitis. Do not suspect TEN/SJS, DRESS, TTP/DIC, necrotizing fasciitis, meningococcemia, SSSS, TSS, anaphylaxis. Symptoms improved with benadryl, pepcid, and solu-medrol. No angioedema, lungs clear throughout, do not suspect anaphylaxis. Feel patient is stable for discharge home on tapering dose of prednisone, will send prescription for famotidine, advised patient to use loratadine or Zyrtec. Follow-up with PCP. Return precautions discussed at bedside. Patient verbalized understanding of and agreement with plan. Differential Diagnosis Differential Diagnoses: The differential diagnosis associated with the presentation includes As per MDM Admission/Observation Consideration of admission/observation: Escalation of care including admission/observation considered Patient would have been admitted to the hospital had their work up had any findings where hospital admission was appropriate and their clinical presentation warranted hospital admission. External Record Review External record reviewed: Inpatient record, Office record and Outpatient record Prescription Management I considered prescription management with: Other Discharge Plan Discharge Clinical Impression: Urticaria Patient Disposition: Home, Self-Care Instructions: Urticaria (ED) Additional Instructions: You were evaluated in the emergency department today for a rash. Your evaluation did not reveal evidence of conditions requiring emergent medical treatment. You are being prescribed a tapering dose of a steroid called prednisone to decrease inflammation. We also recommend that you take a daily antihistamine such as loratadine (Claritin) or cetirizine (Zyrtec). You are also being prescribed famotidine (Pepcid) which is a different type of antihistamine. You can apply a thick unscented lotion to the affected areas such as Eucerine or Vanicream several times daily. Follow up with your primary care provider this week. If your symptoms do not improve, follow up with a make up artist. Return to the emergency department if you develop difficulty breathing or shortness of breath, swelling to lips, tongue, fever, rash inside your mouth or to your palms/soles or any other concerning symptoms. Prescriptions: New prednisone 20 mg tablet See Rx Instructions .ROUTE .COMPLEX Qty: 18 0RF Rx Instructions: 60 milligrams (3 tabs) x3 days, then 40 milligrams (2 tabs) x3 days, then 20 milligrams (1 tab) x3 days famotidine 20 mg tablet 20 mg PO DAILY Qty: 14 0RF No Action ibuprofen 600 mg tablet 600 mg PO Q6H PRN (Reason: fever or pain) Qty: 20 0RF acetaminophen 500 mg tablet 500 mg PO Q6H PRN (Reason: fever or pain) Qty: 20 0RF ondansetron HCl 4 mg tablet 4 mg PO Q6H PRN (Reason: nausea and vomiting) Qty: 14 0RF betamethasone dipropionate 0.05 % cream topical montelukast [Singulair] 10 mg tablet 10 mg PO BEDTIME 30 Days Qty: 30 11RF Referrals: [facility] [Provider Group] [facility] [Provider Group] Stand Alone Forms: Work/School Release Print Language: Swedish
[2024-03-29] MEDS: 0.9 % Sodium Chloride 1,000 ML 999 ML IV (10:41)
[2024-03-29] MEDS: methylPREDNISolone Sod Succ 125 MG/2 ML VIAL IVPUSH (10:43)
[2024-03-29] MEDS: Famotidine/PF 20 MG/2 ML VIAL IVPUSH (10:43)
[2024-03-29] MEDS: diphenhydrAMINE HCL 50 MG/ML VIAL 25 MG IVPUSH (10:43)
[2024-03-29 11:06] VITALS: BP 109/45; PULSE 75; TEMP 36.3; O2SAT 99
--- NOTE | 2024-03-29 12:27 | PC.NURSE ---
Patient remains with some hives on right side of abdomen but feels better after meds
[2024-03-29 13:39] VITALS: BP 144/69; PULSE 85; RESP 15; TEMP 36.8; O2SAT 97
== END 2024-03-29 13:40 | disposition home or self-care (01) ==
PROVIDERS: Emergency Provider Emergency Medicine; PCP Physician Assistant
DX: L50.9 Urticaria, unspecified (principal); R21 Rash and other nonspecific skin eruption; L40.9 Psoriasis, unspecified; Z79.899 Other long term (current) drug therapy
CPT/HCPCS: 96361; 96374; 96375; 99283; 99284; J1200; J2919

== ENCOUNTER 2024-03-31 06:04 | Emergency (ER) | payer OTHER, SELFPAY ==
[2024-03-31 06:10] VITALS: BP 119/74; PULSE 100; RESP 20; TEMP 36.6; O2SAT 97; BMI 30.7
--- OUTSIDE RECORDS SUMMARY | 2024-03-31 06:40 | XMS_ITS | Clinical Summary ---
Author Organization [facility] Address [address] [place] [address] Phone Care Team Providers Care Carpenter Helper Hardwood Flooring Name Role Phone Ailyn Velázquez MD Primary [...] Team Description 03/28/2024 Telephone Obstetrics & Gynecology [facility] [address] [place] [phone] Cathy Mckeon CNM Results 03/23/2024 12:48 PM EST - 03/23/2024 11:59 PM EST Hospital Encounter [facility] Ultrasound [address] [place] [phone] Pelvic pain Discharge Disposition: Home or Self Care 03/09/2024 Telephone Obstetrics & Gynecology [facility] [address] [place] [phone] Cathy Mckeon CNM 03/03/2024 9:15 AM EST Office Visit Obstetrics & Gynecology [facility] [address] [place] [phone] Cathy Mckeon CNM Pelvic pain (Primary Dx); [...] Preservative Free, Injectable 12/16/2012 PPD Test 04/09/2020,03/06/2015 [employer] SARS-CoV-2 COVID-19, mRNA, LNP-S, preservative free 12/07/2020,11/07/2020 [...] EDT Office Visit Obstetrics & Gynecology - [address] [phone] Cathy Mckeon, [facility] [address] [place] [address] Health Maintenance Due Date Last Done Comments [...] Signed Date: 03/27/2024 15:42 ET Workstation ID: [id number] Transcribed By: Self Edit Transcribed Date: 03/27/2024 [...] Signed Date: 03/27/2024 15:42 ET Workstation ID: [id number] Transcribed By: Self Edit Transcribed Date: 03/27/2024 15:36 ET Cathy Mckeon CNM [facility] [place] PROCEDURES * Trichomonas vaginalis antigen (03/03/2024 9:37 AM EST) Trichomonas vaginalis Negative Negative 03/03/2024 6:34 PM EST [facility] ([facility]) [facility] Swab Vaginal structure / Unknown Non-blood Collection / Unknown 03/03/2024 9:37 AM EST 03/03/2024 4:10 PM EST Cathy Mckeon CNM LAB MICROBIOLOGY - G ENERAL ORDERABLES Performing Organization Address City/[facility]/ZIP Co de Phone Number [facility] [address] [place] [address], [place] [phone] * Chlamydia trachomatis and Neisseria gonorrhoeae molecular [...] 9:37 AM EST 03/03/2024 4:10 PM EST [facility] LAB MICROBIOLOGY - G ENERAL ORDERABLES Performing Organization Address [facility]/ZIP Co de Phone Number [facility] [address] [place] [address], [place] [phone] * (ABNORMAL) Wet prep, genital (03/03/2024 9:37 AM EST) Pathologist [facility] Clue Cells, Wet Prep Negative Negative 03/03/2024 6:34 PM [facility] Yeast, Wet Prep Positive(A) Negative 03/03/2024 6:34 PM EST [facility] Trichomonas, Wet Prep Indeterminate Negative 03/03/2024 6:34 PM EST [facility] Comment:Refer to Trichomonas antigen. Swab Vaginal structure / Unknown Non-blood Collection / Unknown 03/03/2024 9:37 AM EST 03/03/2024 4:10 PM EST [facility] LAB MICROBIOLOGY - G ENERAL ORDERABLES Performing Organization Address City/[facility]/ZIP Co de Phone Number [facility] [address] [place] [address], [place] [phone] * Lipid panel (10/27/2022) [facility] Triglycerides 0 mg/dL Comment:No interpretation, a bstracted Cholesterol 0 mg/dL Comment:No interpretation, a bstracted HDL 0 mg/dL Comment:No interpretation, a bstracted LDL Cholesterol 0 mg/dL Comment:No interpretation, a bstracted Blood Venous blood specimen / Unknown Historical Provider LAB BLOOD ORDERAB LES * HIV Screening (03/03/2022) [facility] HIV Screening Abstracted Historical Provider MD MASSIEL STEWART E * Cervical Cancer Screening: HPV (09/23/2021) [facility] Cervical Cancer Screening: HPV Negative, abstracted Historical Provider MD MASSIEL Pennington from Last 3 Months or Most Recently Relevant to Health Maintenance Advance Directives Documents on File Type Date Recorded Patient Wood Room Supervisor Expl anation Health Care Decision (hx) 03/21/2016 AD LENNON DIRECTIVE Health Care Decision (hx) 03/21/2016 AD LENNON DIRECTIVE Health Care Decision (hx) 03/21/2016 AD LENNON DIRECTIVE Care Teams Carpenter Helper Hardwood Flooring Relationship Specialty Start Date End Date Ailyn Velázquez MD [address] [facility] [address] [place] [address] PCP - General 10/07/23
--- OUTSIDE RECORDS SUMMARY | 2024-03-31 06:41 | XMS_ITS | Encounter Summary ---
Author Organization [email or web address] Address [address] [place] [address] Care Team Providers Care Magnetic Tape Composer Operator Name Role Phone Ailyn Velázquez MD Primary Care Provider + Reason for Referral * Imaging (Routine) - Closed Specialty Diagnoses / Procedures Referred By Madison de león Referred To Contact Radiology Diagnoses Pelvic pain Procedures US Pelvis Non OB Complete w Transvaginal Cathy Mckeon CNM [address] [place] [address] [phone] Referral ID Status Reason Start Date Expiration Date Visits Re quested Visits Authorized [id number] Closed 03/03/2024 03/03/2025 1 1 Reason for Visit * Imaging (Routine) - Closed Specialty Diagnoses / Procedures Referred By Madison de león Referred To Contact Radiology Diagnoses Pelvic pain Procedures US Pelvis Non OB Complete w Transvaginal Cathy Mckeon CNM [address] [place] [address] [phone] Referral ID Status Reason Start Date Expiration Date Visits Re quested Visits Authorized [id number] Closed 03/03/2024 03/03/2025 1 1 Encounter Details Date Type Department Care Team (Latest Contact Info) Description 03/23/2024 12:48 PM EST - 03/23/2024 11:59 PM EST Hospital Encounter [facility] Ultrasound [address] [place] [address] Pelvic pain Discharge Disposition: Home [...] EDT Office Visit Obstetrics & Gynecology - [address] [phone] Cathy Mckeon, [facility] [address] [place] [address] documented as of this encounter Procedures Procedure [...] Signed Date: 03/27/2024 15:42 ET Workstation ID: [id number] Transcribed By: Self Edit Transcribed Date: 03/27/2024 [...] Signed Date: 03/27/2024 15:42 ET Workstation ID: [id number] Transcribed By: Self Edit Transcribed Date: 03/27/2024 15:36 ET Cathy Mckeon CNM IMG US PROCEDURES documented in this encounter Visit Diagnoses Diagnosis Pelvic pain documented in this encounter Care Teams Magnetic Tape Composer Operator Relationship Specialty Start Date End Date Ailyn Velázquez MD [address] [place] [phone] PCP - General 10/07/23 documented as of this encounter
--- OUTSIDE RECORDS SUMMARY | 2024-03-31 06:41 | XMS_ITS | Encounter Summary ---
Author Organization [facility] Address [address] [place] [address] Care Team Providers Care Napper Fixer Name Role Phone Ailyn Velázquez MD Primary Care Provider + Reason for Referral * Imaging (Routine) - Closed Specialty Diagnoses / Procedures Referred By Madison de león Referred To Contact Radiology Diagnoses Pelvic pain Procedures US Pelvis Non OB Complete w Transvaginal Cathy Mckeon CNM [address] [place] [address] [address] Referral ID Status Reason Start Date Expiration Date Visits Re quested Visits Authorized [id number] Closed 03/03/2024 03/03/2025 1 1 Reason for Visit * Reason Comments Vaginitis/Bacterial Vaginosis Encounter Details Date Type Department Care Team (Late st Contact Info) Description 03/03/2024 9:15 AM EST Office Visit Obstetrics & Gynecology - [address] [phone] Cathy Mckeon CNM [address] [place] [address] Pelvic pain (Primary Dx); Acute vaginitis; Bartholin's [...] EDT Office Visit Obstetrics & Gynecology - [address] [phone] Cathy Mckeon CNM [address] [place] [address] documented as of this encounter Procedures Procedure [...] Signed Date: 03/27/2024 15:42 ET Workstation ID: [id number] Transcribed By: Self Edit Transcribed Date: 03/27/2024 [...] Signed Date: 03/27/2024 15:42 ET Workstation ID: [id number] Transcribed By: Self Edit Transcribed Date: 03/27/2024 15:36 ET Cathy Mckeon CNM IMG US PROCEDURES * Trichomonas vaginalis antigen (03/03/2024 9:37 AM EST) Trichomonas vaginalis Negative Negative 03/03/2024 6:34 PM EST [facility] Swab Vaginal structure / Unknown Non-blood Collection / Unknown 03/03/2024 9:37 AM EST 03/03/2024 4:10 PM EST Cathy Mckeon [facility] MICROBIOLOGY - G ENERAL ORDERABLES Performing Organization Address [facility]/ZIP Co de Phone Number [facility] [address] [place] [address], * (ABNORMAL) Wet prep, genital (03/03/2024 9:37 AM EST) Clue Cells, Wet Prep Negative Negative 03/03/2024 6:34 PM EST [facility] Yeast, Wet Prep Positive(A) Negative 03/03/2024 6:34 PM EST [facility] Trichomonas, Wet Prep Indeterminate Negative 03/03/2024 6:34 PM EST [facility] Comment:Refer to Trichomonas antigen. Swab Vaginal structure / Unknown Non-blood Collection / Unknown 03/03/2024 9:37 AM EST 03/03/2024 4:10 PM EST Cathy Mckeon [facility] MICROBIOLOGY - G ENERAL ORDERABLES [facility] [address] [place] [address], * Chlamydia trachomatis and Neisseria gonorrhoeae molecular study (03/03/2024 9:37 AM EST) Neisseria gonorrhoeae PCR Negative Negative LAB MOLECULAR DIAGNOSTICS METHOD 03/04/2024 9:43 AM EST [facility] Chlamydia trachomatis PCR Negative Negative LAB MOLECULAR DIAGNOSTICS METHOD 03/04/2024 9:43 AM EST [facility] Swab Cervix uteri structure / Unknown Non-blood Collection / Unknown 03/03/2024 9:37 AM EST 03/03/2024 4:10 PM EST Cathy Mckeon [facility] MICROBIOLOGY - G ENERAL ORDERABLES [facility] [address] [place] [address], documented in this encounter Visit Diagnoses Diagnosis [...] documented as of this encounter Care Teams Napper Fixer Relationship Specialty Start Date End Date Ailyn Velázquez MD [address] [place] [phone] PCP - General 10/07/23 documented as of this encounter
--- OUTSIDE RECORDS SUMMARY | 2024-03-31 06:41 | XMS_ITS | Encounter Summary ---
Author Organization [facility] Address [address] [place] [address] Care Team Providers Care Banking Analyst Name Role Phone Ailyn Velázquez MD Primary Care Provider + Reason for Visit * Reason Onset Date Comments Results 03/28/2024 Encounter Details Date Type Department Care Team ([facility] st Contact Info) Description 03/28/2024 Telephone Obstetrics & Gynecology - [address] [phone] Cathy Mckeon CNM [address] [place] [address] Results Social History Tobacco Use Types Packs/Day [...] as of this encounter Progress Notes * Cathy Mckeon CNM - 03/30/2024 5:08 PM EST [phone] (home) [phone] (work) Spoke with pt and reviewed results, no further follow up indicated. She cont to have intermittent pain and instructed on pain relief measures. She agrees with plan Cathy Mckeon CNM * Rocio Gutierrez - 03/28/2024 3:25 PM EST Pt calling requesting callback with U/S results from 03/03/24. Ps advise documented in this encounter Plan of Treatment Upcoming Encounters Date Type Department Care Team (Late st Contact Info) Description 06/01/2024 11:15 AM EDT Office Visit Obstetrics & Gynecology - [address] [phone] Cathy Mckeon, [facility] [address] [place] [address] documented as of this encounter Visit Diagnoses Not on filedocumented in this encounter Care Teams Banking Analyst Relationship Specialty Start Date End Date Ailyn Velázquez MD [address] [place] [phone] PCP - General 10/07/23 documented as of this encounter
--- OUTSIDE RECORDS SUMMARY | 2024-03-31 06:41 | XMS_ITS | Encounter Summary ---
Author Organization [facility] Address [address] [place] [address] Care Team Providers Care Crisis Worker Name Role Phone Ailyn Velázquez MD Primary Care Provider + Encounter Details Date Type Department Care Team (Late Contact Info) Description 03/09/2024 Telephone Obstetrics & Gynecology - [address] [phone] Cathy Mckeon CNM [facility] [place] [address] Social History Tobacco Use Types Packs/Day Years [...] EDT Office Visit Obstetrics & Gynecology - [address] [phone] Cathy Mckeon CNM [address] [place] [address] documented as of this encounter Visit Diagnoses Not on filedocumented in this encounter Care Teams Crisis Worker Relationship Specialty Start Date End Date Ailyn Velázquez MD [address] [place] [phone] PCP - General 10/07/23 documented as of this encounter
--- OUTSIDE RECORDS SUMMARY | 2024-03-31 06:41 | XMS_ITS | Clinical Summary ---
Author Organization [facility] Address [address] [place] [address] Care Team Providers Care Gravure Press Set Up Operator Name Role Phone Becky Gutierrez PA-C Primary [...] 2022 Fecal DNA 2022 Flexible Sigmoidoscopy 2022 [id number] ( season) 2023 021, 11/07/2020 Imm-Influenza (#1) [...] AM EDT) CHOLESTEROL, TOTAL 224(H) <200 mg/dL [facility] HDL CHOLESTEROL 58 > OR = 50 mg/dL [facility] TRIGLYCERIDES 114 <150 mg/dL [facility] LDL-CHOLESTEROL 143(H) 99 mg/dL (calc) [facility] Comment: Reference range: <100 Desirable range <100 mg/dL for primary prevention; ?? <70 mg/dL for patients with CHD or diabetic patients with > or = 2 CHD risk factors. LDL-C is now calculated using the Morro-Veto calculation, which is a validated novel method providing better accuracy than the Friedewald equation in the estimation of LDL-C. Morro SS et al. JESE. 2013;310(19): 8433-6648 (http://education.[employer]/faq/QTQ714) CHOL/HDLC RATIO 3.9 <5.0 (calc) [facility] NON-HDL CHOLESTEROL 166(H) <130 mg/dL (calc) [facility] Comment: For patients with diabetes plus 1 major ASCVD risk factor, treating to a non-HDL-C goal of <100 mg/dL (LDL-C of <70 mg/dL) is considered a therapeutic option. Blood Blood / Unknown 10/27/2022 9 :22 AM EDT 10/27/2022 9:22 AM EDT Narrative [facility] - 10/28/2022 4:56 PM EDT FASTING:YES us Becky Gutierrez PA-C LAB - BLOOD DRAW Final Resul t [facility] [address] [place] [address], [facility] [address] [phone] * (ABNORMAL) COMPREHENSIVE METABOLIC PANEL (10/27/2022 9:22 AM EDT) GLUCOSE 101(H) 65 - 99 mg/dL [facility] Comment: ?Fasting reference interval For someone without known diabetes, a glucose value between 100 and 125 mg/dL is consistent with prediabetes and should be confirmed with a follow-up test. UREA NITROGEN (BUN) 20 7 - 25 mg/dL [facility] CREATININE (blood) 0.74 0.50 - 0.99 mg/dL [facility] EGFR 102 > OR = 60 mL/min/1. 73m2 [facility] BUN/CREATININE RATIO SEE NOTE: [facility] Comment: ?? Not Reported: BUN and Creatinine are within ?? reference range. ? SODIUM 138 135 - 146 mmol/L [facility] POTASSIUM 5.1 3.5 - 5.3 mmol/L [facility] CHLORIDE 106 98 - 110 mmol/L [facility] CARBON DIOXIDE 25 20 - 32 mmol/L [facility] CALCIUM 9.1 8.6 - 10.2 mg/dL [facility] PROTEIN, TOTAL 7.0 6.1 - 8.1 g/dL [facility] ALBUMIN 4.1 3.6 - 5.1 g/dL [facility] GLOBULIN 2.9 1.9 - 3.7 g/dL (calc) [facility] ALBUMIN/GLOBULI N RATIO 1.4 1.0 - 2.5 (calc) [facility] BILIRUBIN, TOTAL 0.5 0.2 - 1.2 mg/dL [facility] ALKALINE PHOSPHATASE 60 31 - 125 U/L [facility] AST 15 10 - 35 U/L [facility] ALT 12 6 - 29 U/L [facility] Blood Blood / Unknown 10/27/2022 9 :22 AM EDT 10/27/2022 9:22 AM EDT Narrative [facility] - 10/28/2022 4:56 PM EDT FASTING:YES us Becky Gutierrez PA-C LAB - BLOOD DRAW Edited Resu lt - Final [facility] [address] [address], [facility] [address] [address] * HIV 1/2 AG & AB W/RFLX (4TH GEN) (03/03/2022 8:45 AM EST) Pathologist [facility] HIV AG/AB, 4TH GEN NON-REAC TIVE NON-REAC TIVE [facility] Comment: HIV-1 antigen and HIV-1/HIV-2 antibodies were [...] ?? For additional information please refer to http://education.[employer]/faq/HTW283 (This link is being provided for informational/ educational purposes only.) The performance of this assay has not been clinically validated in patients less than 2 years old. Blood Blood / Unknown 03/03/2022 8 :45 AM EST 03/03/2022 8:46 AM EST Becky Gutierrez PA-C LAB - BLOOD DRAW Final Resul t [facility] [address] [address], [facility] [address] ([address]) [place] [address] * HEPATITIS C AB W/RFLX HCV RNA, QT, RT PCR (01/27/2022 8:44 AM EST) Pathologist [facility] HEPATITIS C ANTIBODY NON-REACT MERRY NON-REACT MERRY [facility] SIGNAL TO CUT-OFF 0.08 <1.00 [facility] Comment: HCV antibody was non-reactive. There is no laboratory evidence of HCV infection. In most cases, no further action is required. However, if recent HCV exposure is suspected, a test for HCV RNA (test code 48899) is suggested. For additional information please refer to http://education.[employer]/faq/IZW52b4 (This link is being provided for informational/ educational purposes only.) Blood Blood / Unknown 01/27/2022 8 :44 AM EST 01/27/2022 8:45 AM EST Becky Gutierrez PA-C LAB - BLOOD DRAW Edited Resu lt - Final Performing Organization Address City/[facility]/ZIP Co de Phone Number [facility] [address] [place] [address], [facility] [address] [address] * PAP SMEAR W/HPV (09/23/2021 10:00 AM EDT) PAP SMEAR INTERPRETATION NORMAL NORMAL [facility] HPV (HUMAN PAPILLOMA) NEGATIVE NEGATIVE [facility] HPV TYPE 16 NEGATIVE NEGATIVE [facility] HPV TYPE 18 NEGATIVE NEGATIVE [facility] Swab 09/23/2021 10:0 0 AM EDT Impressions [facility] - 03/02/2022 1:34 PM EST Negative for squamous intraepithelial lesion and malignancy Fungal organisms morphologically consistent with Sharita spp. High risk HPV assay: Negative Provider [facility] LAB - NO BLOOD DRAW Final Result Performing Organization Address City/[facility]/ZIP Co de Phone Number [facility] [address] [place] [address], * PAP W/ HPV (09/23/2021 3:00 AM EDT) 09/23/2021 3:00 AM EDT us Becky Gutierrez PA-C LAB - NO BLOOD DRAW Final Re sult from Last 3 Months or Most Recently Relevant to Health Maintenance Insurance [id number] Care Teams Gravure Press Set Up Operator Relationship Specialty Start Date End Date Becky Gutierrez PA-C [address] [place] [address] PCP - General Internal Medicine 10/20/17
--- NOTE | 2024-03-31 07:47 | ED.ALLEREA ---
HPI - Allergic Reaction General Chief complaint: Allergic Reaction Stated complaint: itchy entire body Time Seen by Provider: 03/31/24 07:19 Source: patient Mode of arrival: ambulatory Limitations: no limitations History of Present Illness ED Provider: Dr. Sohail Moscoso HPI narrative: 48-year-old female with a history of asthma and psoriatic arthritis who presents emergency department for evaluation of diffuse urticarial rash. The rash has been present for proximally 3 days. She was seen here in the emergency department on 03/29/2024 and treated for allergic reaction/urticaria with prednisone taper (60 mg x 3 days, 40 mg x 3 days, 20 mg x 3 days) and Benadryl as needed for itchiness. During that visit she did receive Benadryl 50 mg IV, famotidine 20 mg IV and Solu-Medrol 125 mg IV. Patient states that the rash has not improved. She states that she continues to have significant itchiness. She denied difficulty swallowing, lightheadedness, dizziness, nausea, shortness of breath or chest pain. Related Data Home Medications ?Medication ?Instructions ?Recorded ?Confirmed betamethasone dipropionate 0.05 % appl topical 05/17/23 topical cream Previous Rx's ?Medication ?Instructions ?Recorded acetaminophen 500 mg tablet 500 mg PO Q6H PRN fever or pain 04/15/23 #20 tabs ibuprofen 600 mg tablet 600 mg PO Q6H PRN fever or pain 04/15/23 #20 tabs ondansetron HCl 4 mg tablet 4 mg PO Q6H PRN nausea and 04/15/23 vomiting #14 tabs montelukast 10 mg tablet 10 mg PO BEDTIME 30 days #30 tabs 05/17/23 (Singulair) famotidine 20 mg tablet 20 mg PO DAILY #14 tabs 03/29/24 prednisone 20 mg tablet See Rx Instructions .Route 03/29/24 .COMPLEX #18 tabs famotidine 20 mg tablet (Pepcid AC) 20 mg PO DAILY #30 tabs 03/31/24 hydroxyzine HCl 25 mg tablet 50 mg (2 x 25 mg) PO TID PRN 03/31/24 itching #20 tabs Allergies Allergy/AdvReac Type Severity Reaction Status Date / Time tramadol [TRAMADOL] Allergy Unknown NAUSEA, Verified 03/31/24 06:10 VOMITING, DIZZINESS Review of Systems Review of Systems: Yes all other systems are reviewed and are negative [facility] Past Medical History Medical History (Updated 03/31/24 @ 07:50 by Sohail Moscoso MD) Rash Asthma Allergy Social History Social History (Updated 05/17/23 @ 15:09 by SHARITA Hicks) Patient Tobacco Use Status: Never used Tobacco Advance Directives: No Do you have a plan to hurt others: No Plan Physical Exam ED Vital Signs: Vital Signs - 24 hr 03/31/24 06:10 Temperature 97.9 F Pulse Rate 100 Respiratory Rate 20 Blood Pressure 119/74 Pulse Oximetry 97 Oxygen Delivery Method Room Air BMI result Body Mass Index 30.7 Vital signs were normal Exam: General: Awake, alert in no distress Head: Normocephalic, atraumatic EENT: PERRL, Lids normal, sclera normal, conjunctiva normal, nose normal , ears normal, throat without erythema or exudates Neck: Supple, no adenopathy Lung: breath sounds symmetric, no wheezing, rales or rhonchi Chest: symmetric movement, nontender Heart: regular rate and rhythm, normal S1, S2 no murmurs or rubs Abdomen: soft, non-tender, nondistended, normal bowel sounds Back: no vertebral tenderness, no CVAT Skin: Patient has an urticarial rash on her face, abdomen, upper and lower extremities, the rash is symmetric Neuro: Awake, alert, oriented, normal speech Psych: Pleasant, cooperative Medical Decision Making Medical Decision Making MDM Narrative: 48-year-old female with a history of asthma and psoriatic arthritis who presents emergency department for evaluation of diffuse urticarial rash x3 days with a associated pruritus but no other concerning symptoms. Patient was seen in the emergency department on 03/29/2024 treated with IV Solu-Medrol, Benadryl and Pepcid and discharged on a prednisone taper and Benadryl. Patient states that her symptoms are not better. Vital signs were normal. Physical examination did reveal an urticarial rash. Differential diagnosis: ?Includes but is not limited to allergic reaction, urticarial rash Course: The patient's physical examination is consistent with an urticarial rash and I did discuss this with her. The patient was advised to continue taking her prednisone tapering course. Patient was Benadryl was stopped and she was started on hydroxyzine 50 mg 3 times a day as needed for pruritus. She was also started on Pepcid 20 mg once a day for 1 month for her allergic reaction. Patient was given printed and verbal instructions and discharged home Admission/Observation Consideration of admission/observation: Escalation of care including admission/observation considered (No) Prescription Management I considered prescription management with: Other (H2 blockers: Pepcid, antihistamine: Hydroxyzine) Discharge Plan Discharge Clinical Impression: Allergic reaction, Urticaria Patient Disposition: Home, Self-Care Instructions: Urticaria (ED) Additional Instructions: Your rash is consistent with an allergic reaction. Sometimes it is difficult to determine what caused the allergic reaction but this could also be related to your psoriatic arthritis or your asthma. Finish the prednisone prescription as prescribed. Stop taking Benadryl Take hydroxyzine 25 mg pills, 2 pills 3 times a day as needed for itchiness. This medication will make you sleepy. Do not drive or work while taking this medication. Take Pepcid (famotidine) 20 mg pills, 1 pill once a day for4 weeks. This medication is an antihistamine that should help with the rash and also is a medicine that reduces the amount of acid that you producing your stomach and should help with your belly pain. Follow-up with your doctor in 2 days. Please return to the emergency department if your symptoms get worse or if you develop any symptoms that are concerning to you. Prescriptions: New hydroxyzine HCl 25 mg tablet 50 mg PO TID PRN (Reason: itching) Qty: 20 0RF famotidine [Pepcid AC] 20 mg tablet 20 mg PO DAILY Qty: 30 0RF No Action ibuprofen 600 mg tablet 600 mg PO Q6H PRN (Reason: fever or pain) Qty: 20 0RF acetaminophen 500 mg tablet 500 mg PO Q6H PRN (Reason: fever or pain) Qty: 20 0RF ondansetron HCl 4 mg tablet 4 mg PO Q6H PRN (Reason: nausea and vomiting) Qty: 14 0RF prednisone 20 mg tablet See Rx Instructions .ROUTE .COMPLEX Qty: 18 0RF Rx Instructions: 60 milligrams (3 tabs) x3 days, then 40 milligrams (2 tabs) x3 days, then 20 milligrams (1 tab) x3 days famotidine 20 mg tablet 20 mg PO DAILY Qty: 14 0RF betamethasone dipropionate 0.05 % cream topical montelukast [Singulair] 10 mg tablet 10 mg PO BEDTIME 30 Days Qty: 30 11RF Print Language: Polish
[2024-03-31 08:13] VITALS: BP 119/74; PULSE 100; RESP 20; TEMP 36.6; O2SAT 97
== END 2024-03-31 08:14 | disposition home or self-care (01) ==
PROVIDERS: Emergency Provider Emergency Medicine Emergency Medical Services; PCP Internal Medicine
DX: L50.0 Allergic urticaria (principal); Z79.899 Other long term (current) drug therapy
CPT/HCPCS: 99282; 99283

== ENCOUNTER 2024-04-11 15:27 | Outpatient (AMB) | payer OTHER, SELFPAY ==
[2024-04-11 15:44] VITALS: BP 130/74; PULSE 85; O2SAT 98; BMI 32.6
--- NOTE | 2024-04-11 15:44 | A.OFFVIS_ITS ---
Vital Signs 04/11/24 15:44 Height 5 ft 6 in Weight 201 lb 11.567 oz BMI 32.6 BP 130/74 Blood Pressure Location Rt brachial Position Sitting Pulse 85 Pulse Source Pulse Oximeter Pulse Oximetry (%) 98 Oxygen Delivery Method Room Air Intake Visit Reasons: Asthma Allergies tramadol [TRAMADOL] Allergy (Unknown, Verified 03/31/24 06:10) NAUSEA, VOMITING, DIZZINESS HPI Comments Details: The patient is a 48 year woman with a diagnosis of asthma. Here for evaluation. Apparently she has had a very hard winter and fall. 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 She has been exposed significant amount sick contacts and therefore has had significant amount her asthma flare ups. She is required prednisone multiple times already. In the meantime she does use Symbicort. She also has a rescue inhaler. I am further evaluation I did review her pulmonary function studies that she had this year demonstrating no evidence of any obstructive ventilatory defects. Ultimately she did undergo a methacholine challenge which she drop more than 20% after the 2nd dose of methacholine consistent with hyper-reactive airways in the diagnosis of asthma. The patient does have underlying allergies. Significant chronic rhinitis. More recently though she was also diagnosed with psoriasis. She has psoriasis throughout her skin face and extremities. Recently started on consentyx. Prior to starting the biologic therapy the patient did have blood work including a TB test was negative. The patient understands that she is going to be a compromise with the medication. Therefore we have to be careful with the medications we start for her asthma. The patient is using the Symbicort as needed which I believe is okay and also will go ahead and start her on Singulair as a way to treat her allergies. 08/19/2023 the patient is here for a pulmonary follow-up visit. Overall she is doing little better. She has tolerating the Symbicort. In addition to that she is responding well to the singular. The patient does have underlying asthma. We did review her pulmonary function studies from [facility] which appeared to be reassuring. In addition to that the patient did undergo blood work including allergy testing. She has minimal allergies noted. She is responding well to the singular which we helping with the microstrategy bi developer. She can also use anti histamines as needed. Otherwise the patient is without any other complaints. Will plan to follow-up in the spring. The patient has any issues prior to that she will call for an earlier assessment. 04/11/2024 the patient is here for a pulmonary follow-up visit. Overall the patient has been doing well. She did have a significant episode with her injections for her psoriasis were stopped abruptly and she tolerated developing almost a rebound allergic reactions. The patient did have to go to the ER I believe 3 times and she did require an EpiPen once or twice. She was also given IV steroids. Now she is better. She did get a emergency dose of the cosentyx improve. She should be getting another 22 April. In the meantime I gave her some prednisone for hole. She is going to continue with the current respiratory therapy. While she was here she did have a chest x-ray which I personally reviewed without any acute disease. And right now her exam is pretty benign. She does have an EpiPen available in case her symptoms reoccur. Otherwise patient is doing well will follow-up sometime in 6-8 months. COUNT INCLUDES THE [facility] Medical History (Updated 04/01/24 @ 00:01 by Carmela Gerard) Rash Asthma Allergy Social History (Updated 05/17/23 @ 15:09 by SHARITA Hicks) Patient Tobacco Use Status: Never used Tobacco Review of Systems Const Denies fever(s) Eyes Reports no additional complaints ENT Reports nasal congestion Card Denies chest pain Resp Reports cough and Reports wheezing GI Reports no additional complaints Musc Reports no additional complaints, Denies arthralgias and Denies joint swelling Skin/Breast Reports lesions and Reports rash Neuro Reports no additional complaints Endo Reports no additional complaints Álvaro/Lymph Denies easy bruising Aller/Immun Reports wheezing Physical Exam Vital Signs: Last Vital Signs Pulse 85 04/11/24 15:44 BP 130/74 04/11/24 15:44 Pulse Ox 98 04/11/24 15:44 Oxygen Delivery Method Room Air 04/11/24 15:44 BMI result Body Mass Index 32.6 Const General: comfortable HEENT Head: Yes normocephalic Neck Neck: Yes supple Chest Chest palpation & inspection: normal inspection of the chest Resp Effort & Inspection: normal respiratory effort Auscultation: clear to auscultation bilaterally and no wheezes Cardio Heart sounds: S1 normal heart sound present and S2 normal heart sound present GI Palpation (GI): Soft to palpation Skin Rashes: rashes noted Extrem General: Yes no clubbing, cyanosis or edema Assessment & Plan Assessment & Plan (1) Allergy: Code(s): T78.40XA - Allergy, unspecified, initial encounter Category: Medical Qualifiers: Encounter type: initial encounter Qualified Code(s): T78.40XA - Allergy, unspecified, initial encounter (2) Asthma: Code(s): J45.909 - Unspecified asthma, uncomplicated Category: Medical Qualifiers: Asthma complication type: uncomplicated Asthma persistence: persistent Asthma severity: moderate Qualified Code(s): J45.40 - Moderate persistent asthma, uncomplicated (3) Rash: Comment: psoriasis Code(s): R21 - Rash and other nonspecific skin eruption Category: Medical Plan Continue Symbicort as needed REBECCA as needed continue Singulair F/U 8-12 months Medications: New prednisone PO daily; Take 6 tabs daily x 3 days, then 5 tabs x 3 days, then 4 tabs x 3 days, then 3 tabs x 3 days, then 2 tabs daily x 3 days, then 1 tab x 3 days to complete. 63 tabs 0RF 18 days budesonide-formoterol 160-4.5 mcg/actuation (Symbicort) 2 puffs inhalation BID 10.2 grams 11RF 30 days J44.89 - Other specified chronic obstructive pulmonary disease albuterol sulfate 90 mcg/actuation 2 inhalations inhalation Q6H PRN 18 grams 12RF shortness of breath or wheezing 30 days J44.9 - Chronic obstructive pulmonary disease, unspecified Refilled montelukast (Singulair) 10 mg PO BEDTIME 30 tabs 11RF 30 days J45.909 - Unspecified asthma, uncomplicated Coding Level of Care Code Est Pt Level 4 (43062) Diagnoses Allergy, initial encounter T78.40XA Encounter type: initial encounter Moderate persistent asthma without complication J45.40 Asthma complication type: uncomplicated Asthma persistence: persistent Asthma severity: moderate Rash R21 Time Spent (min) 16
--- OUTSIDE RECORDS SUMMARY | 2024-04-11 16:20 | XMS_ITS | Continuity of Care Document ---
Author Organization [facility] ter Address [address] [place] [id number]- Care Team Providers Care Pharmaceutical Process Engineer Name Role Phone Ailyn Velázquez MD, V Primary Care Physician [phone] [id number] Date(s): 04/01/24 - 04/01/[address] [address]- Encounter Diagnosis Urticarial rash(Final) - 04/01/24 Discharge Disposition: A-D/C Home Attending Physician: Neelam Pyle MD Admitting Physician: Neelam Pyle MD Referring Physician: Not on Staff, Referring MD Encounter Type: Disch ES Allergies, Adverse Reactions, Alerts Substance Criticality Severity Reaction Reaction Severity Status traMADol Active Medications Albuterol (Eqv-ProAir HFA) Inhalation, Every 6 hours, PRN Wheezing/Shortness of Breath, 0 Refills, Maintenance, 04/17/20 6:49:00 AM EST, Partial fill upon patient request if the prescription is for a schedule II opioid drug. Start Date: 04/17/20 Status: Ordered Repeat number: 1 amitriptyline 10 mg oral tablet 10 mg, 1, tablet, By Mouth, Daily at bedtime, # 30 tablet, Refills 5, Tot. Refills 5, Maintenance, 10/19/23 2:37:00 PM EDT, Route to Pharmacy Electronically, [facility] #[id number], Partial fill upon patient request if the prescription is for a schedule II opioid drug., 165, cm, 10/19/23 13:48:0 0 EDT, Height, 92.2, kg, 10/14/23 9:25:00 EDT, Dry Weight Start Date: 10/19/23 Status: Ordered Quantity: 30.0 Unit: tablet Repeat number: 6 budesonide-formoterol 80 mcg-4.5 mcg/inh inhalation aerosol with adapter 2, puffs, Inhalation, 2 times a day, # 10.2 Gm, Refills 6, Tot. Refills 6, Maintenance, 03/04/23 4:47:00 PM EST, Aerosol, Route to Pharmacy Electronically, [id number], [facility] #[id number], 165.1, cm, 03/04/23 15:25:00 EST, Height, 89.54, kg, 03/04/23 15:28:00 EST, Dry Weight Start Date: 03/04/23 Status: Ordered Quantity: 10.2 Unit: g Repeat number: 7 EpiPen 2-Sergei 0.3 mg injectable kit = 0.3 mg, Intramuscular, Once, # 1 each, 0 Refills, Soft Stop, 09/11/20 11:07:00 AM EDT, [facility] #[id number], Partial fill upon patient request if the prescription is for a schedule II opioid drug., 165.1, cm, 09/11/20 10:37:00 EDT, Height, 90.9, kg, 04/17/20 6:55:00 EST, Dry Weight Start Date: 09/11/20 Status: Ordered Quantity: 1.0 Unit: each Repeat number: 1 EpiPen 2-Sergei 0.3 mg injectable kit = 0.3 mg, Intramuscular, Once, # 1 kit, 1 Refills, Soft Stop, 04/01/24 11:16:00 AM EST, [facility] #[id number], Partial fill upon patient request if the prescription is for a schedule II opioid drug., 165, cm, 10/27/23 14:17:00 EDT, Height, 80.9, kg, 04/01/24 9:52:00 EST, Dry Weight Start Date: 04/01/24 Status: Ordered Quantity: 1.0 Unit: kit Repeat number: 2 fluocinolone 0.01% topical oil 0 Refills, Maintenance, 05/20/23 12:43:00 PM EDT, Partial fill upon patient request if the prescription is for a schedule II opioid drug. Start Date: 05/20/23 Status: Ordered Repeat number: 1 gabapentin 100 mg oral capsule 1, capsule, By Mouth, 3 times a day, AFTER 3 DAYS, MAY INCREASE TO 2 CAPSULES 3X A DAY,& AFTER 3 MORE DAYS, 3 CAPSULES 3X A DAY, # 90 capsule, Refills 3, Maintenance, 01/24/24 8:28:00 AM EST, Route to Pharmacy Electronically, [facility] #[id number], 165, cm, 10/27/23 14:17:00 EDT, Height, 92.2, kg, 10/14/23 9:25:00 EDT, Dry Weight Start Date: 01/24/24 Status: Ordered Quantity: 90.0 Unit: capsule Repeat number: 1 ibuprofen 800 mg oral tablet 800 mg, 1, tablet, By Mouth, 2 times a day, PRN, # 60 tablet, Refills 1, Tot. Refills 1, Maintenance, Pain , Mild, 05/20/23 4:58:00 PM EDT, Route to Pharmacy Electronically, [facility] #[id number], Partial fill upon patient request if the prescription is for a schedule II opioid drug., 165.1, cm, 05/20/23 15:31:00 EDT, Height, 88.54, kg, 05/20/23 15:31:00 EDT, Dry Weight Start Date: 05/20/23 Status: Ordered Quantity: 60.0 Unit: tablet Repeat number: 2 ketoconazole 2% topical shampoo 1 application, Topically, Once, PRN as needed, # 120 mL, 3 Refills, Soft Stop, 05/20/23 4:58:00 PM EDT, Shampoo, [facility] #[id number], Partial fill upon patient request if the prescription is for a schedule II opioid drug., 1 application Topically Once,PRN:as needed, 165.1, cm, 05/20/23 15:31:00 EDT, Height, 88.54, kg, 05/20/23 15:31:00 EDT, Dry Weight Start Date: 05/20/23 Status: Ordered Quantity: 120.0 Unit: mL Repeat number: 4 loratadine 10 mg oral tablet 10 mg, 1, tablet, By Mouth, Daily, for seasonal allergies, # 30 tablet, Refills 2, Tot. Refills 2, Maintenance, 05/20/23 5:01:00 PM EDT, Route to Pharmacy Electronically, [facility] #[id number], Partial fill upon patient request if the prescription is for a schedule II opioid drug., 165.1, cm, 05/20/23 15:31:00 EDT, Height, 88.54, kg, 05/20/23 15:31:00 EDT, Dry Weight Start Date: 05/20/23 Status: Ordered Quantity: 30.0 Unit: tablet Repeat number: 3 montelukast 10 mg oral tablet Refills 0, Maintenance, 05/20/23 12:43:00 PM EDT, Partial fill upon patient request if the prescription is for a schedule II opioid drug. Start Date: 05/20/23 Status: Ordered Repeat number: 1 Otezla 30 mg oral tablet 0 Refills, Maintenance, 05/20/23 3:49:00 PM EDT, Partial fill upon patient request if the prescription is for a schedule II opioid drug. Start Date: 05/20/23 Status: Ordered Repeat number: 1 Problem List Condition Confirmation Course Effective Dates Status H ealth Status Informant Cervical radiculopathy Confirmed Active Other headache syndrome Confirmed Active Hemorrhoids Confirmed Active Obese class I Confirmed Active Psoriasis Confirmed Active Strain of cervical portion of both trapezius muscles Confirmed Active Umbilical mass Confirmed Active Asthma Confirmed Active Vital Signs Most recent to oldest [Reference Range]: 1 2 Oxygen Saturation [94-100 %] 96 % (04/01/24 9:52 AM) Pulse Rate [55-90 bpm] 95 bpm *H* (04/01/24 9:52 AM) Blood Pressure [90-138/55-84 mm Hg] 131/ 68mm Hg (04/01/24 9:52 AM) Respiratory Rate [16-30 br/min] 18 br/mi n (04/01/24 9:52 AM) Temperature [96.8-100.4 DegF] 98.6 DegF (04/01/24 9:52 AM) Mode of Delivery (Oxygen) Room air (04/01/24 9:52 AM) Blood pressure sites Arm, left (04/01/24 9:52 AM) Temperature Route Oral (04/01/24 9:52 AM) Dry Weight 80.9 kg (04/01/24 9:52 AM) 80.9 kg (04/01/24 9:46 AM) Dry Weight Obtained Via Patient/family s tated (04/01/24 9:46 AM) Social History Social History Type Response Smoking Status Never smoker entered on: 05/05/13 Sex Sex Representation Female (finding) Patient Care team information Care Team Personnel Name: Eber PRUITT, Ailyn Bennett Position: S Physician - Primary Care Member Role: PCP Address: [address] [place] [address] Telecom: Care Team Related Persons Name: BRIGHT HICKS Insurance Providers Guarantor name: DEWAYNE PRADO Health Plan Information #: 1 Payer: [employer] [facility] Member Number: [id number] Policy Number: NA Group Number: [id number] Health Plan Information #: 2 Payer: [employer] [facility] Member Number: [id number] Policy Number: NA Group Number: [id number]
--- OUTSIDE RECORDS SUMMARY | 2024-04-11 16:20 | XMS_ITS | Encounter Summary ---
Author Organization [employer] Address [address] [place] [address] Care Team Providers Care Buggy Operator Name Role Phone Ailyn Velázquez MD Primary Care Provider + Reason for Visit * Reason Onset Date Comments Results 03/28/2024 Encounter Details Date Type Department Care Team ([facility] st Contact Info) Description 03/28/2024 Telephone Obstetrics & Gynecology - [address] [phone] Cathy Mckeon CNM [address] [place] [id number] Results Social History Tobacco Use Types Packs/Day Years Used Date Smoking Tobacco: Never Smokeless Tobacco: Never Alcohol Use Standard Drinks/Week Comments Yes 0.8 (1 standard drink = 0.6 oz p ure alcohol) Comments No Sex and Gender Information Value Date Recorded Sex Assigned at Not on file Legal Sex Female 11:37 PM EST Gender Identity Not on file Sexual Orientation Not on file documented as of this encounter Progress Notes * Cathy Mckeon CNM - 03/30/2024 5:08 PM EST [phone] (home) [phone] (work) Spoke with pt and reviewed results, [...] EDT Office Visit Obstetrics & Gynecology - [address] [phone] Cathy Mckeon, [facility] [address] [place] [phone] documented as of this encounter Visit Diagnoses Not on filedocumented in this encounter Care Teams Buggy Operator Relationship Specialty Start Date End Date Ailyn Velázquez MD [address] [place] [phone] PCP - General 10/07/23 documented as of this encounter
--- OUTSIDE RECORDS SUMMARY | 2024-04-11 16:20 | XMS_ITS | Encounter Summary ---
Author Organization [employer] Address [address] [place] [address] Care Team Providers Care Environmental Solutions Engineer Name Role Phone Ailyn Velázquez MD Primary Care Provider + Encounter Details Date Type Department Care Team (Late Contact Info) Description 03/09/2024 Telephone Obstetrics & Gynecology - [address] [phone] Cathy Mckeon CNM [address] [place] [phone] Social History Tobacco Use Types Packs/Day Years [...] EDT Office Visit Obstetrics & Gynecology - [address] [phone] Cathy Mckeon CNM [address] [place] [phone] documented as of this encounter Visit Diagnoses Not on filedocumented in this encounter Care Teams Environmental Solutions Engineer Relationship Specialty Start Date End Date Ailyn Velázquez MD [address] [place] [phone] PCP - General 10/07/23 documented as of this encounter
--- OUTSIDE RECORDS SUMMARY | 2024-04-11 16:20 | XMS_ITS | Clinical Summary ---
Author Organization [facility] Address [address] [place] [address] Care Team Providers Care Supervisor Tile And Mottle Name Role Phone Becky Gutierrez PA-C Primary Care Provider [phone] Source Comments PLEASE NOTE, if this patient [...] 2022 Fecal DNA 2022 Flexible Sigmoidoscopy 2022 [id number] ( season) 2023 021, 11/07/2020 Imm-Influenza (#1) [...] 09/23/2021, 12/31/2018 Pap + HPV 09/23/2026 09/23/2021, 080 03/2021, 10/31/2019, Additional history exists Lipid Screening 10/28/2027 10/27/2022, 110 08/2021, 06/17/2021, Additional history exists Imm-DTaP/Tdap/Td (2 - Td or Tdap) 10/27/2032 023, 04/05/2017 Hepatitis C Screening Completed 01/27/2022, 016 HIV Screening Completed 03/03/2022, 07/2021, 06/21/2018 Cervical [...] 3:00 AM EDT) 11/13/2022 3:00 AM EDT Becky Gutierrez PA-C IMG MAMMO Edited Resul t - Final * (ABNORMAL) LIPID PANEL (10/27/2022 9:22 AM EDT) CHOLESTEROL, TOTAL 224(H) <200 mg/dL [facility] HDL CHOLESTEROL 58 > OR = 50 mg/dL [facility] TRIGLYCERIDES 114 <150 mg/dL [employer] [facility] LDL-CHOLESTEROL 143(H) 99 mg/dL (calc) [facility] Comment: Reference range: <100 Desirable range <100 mg/dL for primary prevention; ?? <70 mg/dL for patients with CHD or diabetic patients with > or = 2 CHD risk factors. LDL-C is now calculated using the Morro-Veto calculation, which is a validated novel method providing better accuracy than the Friedewald equation in the estimation of LDL-C. Morro SS et al. JESE. 2013;310(19): 8072-2610 (http://education.[employer]/faq/QIR135) CHOL/HDLC RATIO 3.9 <5.0 (calc) [facility] NON-HDL CHOLESTEROL 166(H) <130 mg/dL (calc) [facility] Comment: For patients with diabetes plus 1 major ASCVD risk factor, treating to a non-HDL-C goal of <100 mg/dL (LDL-C of <70 mg/dL) is considered a therapeutic option. Blood Blood / Unknown 10/27/2022 9 :22 AM EDT 10/27/2022 9:22 AM EDT Narrative [facility] - 10/28/2022 4:56 PM EDT FASTING:YES us Becky Gutierrez PA-C LAB - BLOOD DRAW Final Resul t [facility] [address] [place] [address], [facility] [address] [address] * (ABNORMAL) COMPREHENSIVE METABOLIC PANEL (10/27/2022 9:22 AM EDT) GLUCOSE 101(H) 65 - 99 mg/dL [employer] [facility] Comment: ?Fasting reference interval For someone without known diabetes, a glucose value between 100 and 125 mg/dL is consistent with prediabetes and should be confirmed with a follow-up test. UREA NITROGEN (BUN) 20 7 - 25 mg/dL [facility] CREATININE (blood) 0.74 0.50 - 0.99 mg/dL [facility] EGFR 102 > OR = 60 mL/min/1. 73m2 [facility] BUN/CREATININE RATIO SEE NOTE: [facility] Comment: ?? Not Reported: BUN and Creatinine are within ?? reference range. ? SODIUM 138 135 - 146 mmol/L [facility] POTASSIUM 5.1 3.5 - 5.3 mmol/L [facility] CHLORIDE 106 98 - 110 mmol/L [facility] CARBON DIOXIDE 25 20 - 32 mmol/L [facility] CALCIUM 9.1 8.6 - 10.2 mg/dL [facility] PROTEIN, TOTAL 7.0 6.1 - 8.1 g/dL [facility] ALBUMIN 4.1 3.6 - 5.1 g/dL [facility] GLOBULIN 2.9 1.9 - 3.7 g/dL (calc) [facility] ALBUMIN/GLOBULI N RATIO 1.4 1.0 - 2.5 (calc) [facility] BILIRUBIN, TOTAL 0.5 0.2 - 1.2 mg/dL [facility] ALKALINE PHOSPHATASE 60 31 - 125 U/L [facility] AST 15 10 - 35 U/L [facility] ALT 12 6 - 29 U/L [facility] Blood Blood / Unknown 10/27/2022 9 :22 AM EDT 10/27/2022 9:22 AM EDT Narrative [employer] [facility] - 10/28/2022 4:56 PM EDT FASTING:YES us Becky Gutierrez PA-C LAB - BLOOD DRAW Edited Resu lt - Final [facility] [address] [address], [facility] [address] [address] * HIV 1/2 AG & AB W/RFLX (4TH GEN) (03/03/2022 8:45 AM EST) HIV AG/AB, 4TH GEN NON-REAC TIVE NON-REAC TIVE [facility] Comment: HIV-1 antigen and HIV-1/HIV-2 antibodies [...] ?? For additional information please refer to http://education.[employer]/faq/CWX081 (This link is being provided for informational/ educational purposes only.) The performance of this assay has not been clinically validated in patients less than 2 years old. Blood Blood / Unknown 03/03/2022 8 :45 AM EST 03/03/2022 8:46 AM EST Becky Gutierrez PA-C LAB - BLOOD DRAW Final Resul t [facility] [address] [address], [facility] [address] ([address]) [place] [address] * HEPATITIS C AB W/RFLX HCV RNA, QT, RT PCR (01/27/2022 8:44 AM EST) Pathologist [facility] HEPATITIS C ANTIBODY NON-REACT MERRY NON-REACT MERRY [facility] SIGNAL TO CUT-OFF 0.08 <1.00 [facility] Comment: HCV antibody was non-reactive. There is no laboratory evidence of HCV infection. In most cases, no further action is required. However, if recent HCV exposure is suspected, a test for HCV RNA (test code 33617) is suggested. For additional information please refer to http://education.[employer].Rebls/faq/ZXW08h9 (This link is being provided for informational/ educational purposes only.) Blood Blood / Unknown 01/27/2022 8 :44 AM EST 01/27/2022 8:45 AM EST Becky Gutierrez PA-C LAB - BLOOD DRAW Edited Resu lt - Final [facility] [address] [address], [facility] [address] [address] * PAP SMEAR W/HPV (09/23/2021 10:00 AM EDT) PAP SMEAR INTERPRETATION NORMAL NORMAL [facility] HPV (HUMAN PAPILLOMA) NEGATIVE NEGATIVE [facility] HPV TYPE 16 NEGATIVE NEGATIVE [facility] HPV TYPE 18 NEGATIVE NEGATIVE [facility] Swab 09/23/2021 10:0 0 AM EDT Impressions [facility] - 03/02/2022 1:34 PM EST Negative for squamous intraepithelial lesion and malignancy Fungal organisms morphologically consistent with Sharita spp. High risk HPV assay: Negative Provider [facility] LAB - NO BLOOD DRAW Final Result Performing Organization Address City/[facility]/ZIP Co de Phone Number [facility] [address] [place] [address], * PAP W/ HPV (09/23/2021 3:00 AM EDT) 09/23/2021 3:00 AM EDT Becky Gutierrez PA-C LAB - NO BLOOD DRAW Final Re sult from Last 3 Months or Most Recently Relevant to Health Maintenance Insurance [facility] Member Subscriber Plan / Payer (Ef fective 2023-Present) Name:Glen Brittaney Relation to Subscriber:Self Name:Brittaney Carroll Payer ID:[id number] Group ID:Not on file Type:Managed Medicaid Address: [place] [id number] Care Teams Supervisor Tile And Mottle Relationship Specialty Start Date End Date Becky Gutierrez PA-C [address] [place] [address] PCP - General Internal Medicine 10/20/17
--- OUTSIDE RECORDS SUMMARY | 2024-04-11 16:20 | XMS_ITS | Encounter Summary ---
Author Organization [facility] Address [address] [place] [address] Care Team Providers Care Computer Education Professor Name Role Phone Ailyn Velázquez MD Primary Care Provider + Reason for Referral * Imaging (Routine) - Closed Specialty Diagnoses / Procedures Referred By Madison t Referred To Contact Radiology Diagnoses Pelvic pain Procedures US Pelvis Non OB Complete w Transvaginal Cathy Mckeon CNM [address] [place] [address] Phone: tel: fax: [address] [address] Phone: tel: Referral ID Status Reason Start Date Expiration Date Visits Re quested Visits Authorized [id number] Closed 03/03/2024 03/03/2025 1 1 Reason for Visit * Imaging (Routine) - Closed Specialty Diagnoses / Procedures Referred By Contac t Referred To Contact Radiology Diagnoses Pelvic pain Procedures US Pelvis Non OB Complete w Transvaginal Cathy Mckeon CNM [address] [place] [address] Phone: tel: fax: [address] [address] Phone: tel: Referral ID Status Reason Start Date Expiration Date Visits Re quested Visits Authorized [id number] Closed 03/03/2024 03/03/2025 1 1 Encounter Details Date Type Department Care Team (Latest Contact Info) Description 03/23/2024 12:48 PM EST - 03/23/2024 11:59 PM EST Hospital Encounter [facility] Ultrasound [address] [place] [address] Pelvic pain Discharge Disposition: Home [...] this encounter Medications at Time of Discharge amitriptyline (ELAVIL) 10 mg tablet Take 1 [...] 06/19/2021 gabapentin (NEURONTIN) 100 mg capsule 01/25/2024 hydroxychloroquin e (PLAQUENIL) 200 mg tablet Take 1 tablet [...] total) by mouth. at bedtime. 12/11/2023 norethindrone (INGRID,PHOEBE,HEA THER,MICRONOR) 0.35 mg tablet Take 1 tablet (0.35 [...] EDT Office Visit Obstetrics & Gynecology - [address] [phone] Cathy Mckeon, [facility] [address] [place] [address] documented as of this encounter Procedures Procedure [...] Signed Date: 03/27/2024 15:42 ET Workstation ID: [id number] Transcribed By: Self Edit Transcribed Date: 03/27/2024 [...] Signed Date: 03/27/2024 15:42 ET Workstation ID: [id number] Transcribed By: Self Edit Transcribed Date: 03/27/2024 15:36 ET us Cathy DAVID IM US PROCEDURES Final Resul t documented in this encounter Visit Diagnoses Diagnosis Pelvic pain documented in this encounter Care Teams Computer Education Professor Relationship Specialty Start Date End Date Ailyn Velázquez MD [address] [place] [phone] PCP - General 10/07/23 documented as of this encounter
--- OUTSIDE RECORDS SUMMARY | 2024-04-11 16:20 | XMS_ITS | Clinical Summary ---
Author Organization [facility] Address [address] [place] [address] Phone Care Team Providers Care Health Promotion Specialist Name Role Phone Ailyn Velázquez MD Primary Care Provider + Allergies Active Allergy Reactions Criticality Noted Date Comments Tramadol Dermatitis,Rash 06/04/2016 Medications Lactobacillus acidophilus 100 mg (1 billion cell) capsule Take 1 capsule by mouth 2 (two) times a day. 09/24/19 22 Active folic acid (FOLVITE) 1 mg tablet Take 1 tablet (1,000 mcg total) by mouth 1 (one) time each day. 06/20/19 22 Active norethindrone (INGRID,PHOEBE,HE ATHER,MICRONOR) 0.35 mg tablet Take 1 tablet (0.35 mg total) by mouth 1 (one) time each day. for 360 days Active Ventolin HFA 90 mcg/actuation inhaler Inhale 2 puffs by mouth Every 4 hours as needed. 12/15/19 24 Active amitriptyline (ELAVIL) 10 mg tablet Take 1 tablet (10 mg total) by mouth. at bedtime 01/09/20 24 Active Symbicort 160-4.5 mcg/actuation inhaler Inhale 2 puffs by mouth 2 times daily. 12/15/19 24 Active gabapentin (NEURONTIN) 100 mg capsule 01/25/20 24 Active hydroxychloroqui ne (PLAQUENIL) 200 mg tablet Take 1 tablet (200 mg total) by mouth 1 (one) time each day. 01/12/20 24 Active hydrOXYzine HCL (ATARAX) 25 mg tablet TAKE 1 TABLET BY MOUTH THREE TIMES DAILY NEEDED FOR ITCHING 03/04/19 24 Active ibuprofen (ADVIL,MOTRIN) 800 mg tablet Take 1 tablet (800 mg total) by mouth 3 (three) times a day if needed. 12/15/19 24 Active montelukast (SINGULAIR) 10 mg tablet Take 1 tablet (10 mg total) by mouth. at bedtime. 12/11/19 24 Active SUMAtriptan (IMITREX) 50 mg tablet TAKE 1 TABLET BY MOUTH DAILY NEEDED FOR MIGRAINE HEADACHE. MAY REPEAT DOSE AFTER 2 HOURS UP TO A. MAXIMUM OF 2 12/11/19 24 Active betamethasone dipropionate (DIPROSONE) 0.05 % cream 02/15/20 24 Active meloxicam (MOBIC) 15 mg tablet Take 1 tablet (15 mg total) by mouth 1 (one) time each day. 02/21/20 24 Active omeprazole (PriLOSEC) [address] capsule Take 1 capsule (20 mg total) by mouth 1 (one) time each day before breakfast. 12/11/19 24 Active conjugated estrogens (Premarin) vaginal cream Insert 0.5 g into the vagina 2 (two) times a week. INSERT 1 APPLICATORFUL 30 g 03/06/19 25 Active terconazole (TERAZOL 7) 0.4 % vaginal cream Insert 1 applicator into the vagina at bedtime for 7 days. 45 g 03/07/19 25 025 Active Problems Problem Noted Date Diagnosed Date [...] Team Description 03/28/2024 Telephone Obstetrics & Gynecology - [address] [phone] Cathy Mckeon CNM Results 03/23/2024 12:48 PM EST - 03/23/2024 11:59 PM EST Hospital Encounter [facility] Ultrasound [address] [place] [address] Pelvic pain Discharge Disposition: Home or Self Care 03/09/2024 Telephone Obstetrics & Gynecology - [facility] [address] [place] [phone] Cathy Mckeon CNM 03/03/2024 9:15 AM EST Office Visit Obstetrics & Gynecology - [facility] [address] [place] [phone] Cathy Mckeon CNM Pelvic pain (Primary Dx); [...] Preservative Free, Injectable 12/16/2012 PPD Test 04/09/2020,03/06/2015 [facility] Online Ordering SARS-CoV-2 COVID-19, mRNA, LNP-S, preservative free 12/07/2020,11/07/2020 [...] on file Sexual Orientation Not on file Obstetrics History Para Term [...] EDT Office Visit Obstetrics & Gynecology - [address] [phone] Cahty Mckeon, [facility] [address] [place] [address] Health Maintenance Due Date Last Done Comments [...] patient's age to complete this topic Meningococcal B Vacine Aged Out No lo nger eligible based on patient's age to complete [...] Signed Date: 03/27/2024 15:42 ET Workstation ID: [id number] Transcribed By: Self Edit Transcribed Date: 03/27/2024 [...] Signed Date: 03/27/2024 15:42 ET Workstation ID: [id number] Transcribed By: Self Edit Transcribed Date: 03/27/2024 15:36 ET Cathy Mckeon CNM IMG US PROCEDURES Final Resul t * Trichomonas vaginalis antigen (03/03/2024 9:37 AM EST) Trichomonas vaginalis Negative Negative 03/03/2024 6:34 PM EST [facility] Swab Vaginal structure / Unknown Non-blood Collection / Unknown 03/03/2024 9:37 AM EST 03/03/2024 4:10 PM EST Cathy Mckeon CNM LAB MICROBIOLOGY - GENERAL OR DERABLES Final Result [facility] [address] [place] [address], [place] [phone] * Chlamydia trachomatis and Neisseria gonorrhoeae molecular study (03/03/2024 9:37 AM EST) Neisseria gonorrhoeae PCR Negative Negative LAB MOLECULAR DIAGNOSTICS METHOD 03/04/2024 9:43 AM EST [facility] Chlamydia trachomatis PCR Negative Negative LAB MOLECULAR DIAGNOSTICS METHOD 03/04/2024 9:43 AM EST [facility] Swab Cervix uteri structure / Unknown Non-blood Collection / Unknown 03/03/2024 9:37 AM EST 03/03/2024 4:10 PM EST us Cathy DAVID LAB MICROBIOLOGY - GENERAL OR DERABLES Final Result Performing Organization Address [facility] Co de Phone Number [facility] [address] [place] [address], * (ABNORMAL) Wet prep, genital (03/03/2024 9:37 AM EST) Clue Cells, Wet Prep Negative Negative 03/03/2024 6:34 PM EST [facility] Yeast, Wet Prep Positive(A) Negative 03/03/2024 6:34 PM EST [facility] Trichomonas, Wet Prep Indeterminate Negative 03/03/2024 6:34 PM EST [facility] Comment:Refer to Trichomonas antigen. Swab Vaginal structure / Unknown Non-blood Collection / Unknown 03/03/2024 9:37 AM EST 03/03/2024 4:10 PM EST us Cathy DAVID LAB MICROBIOLOGY - GENERAL OR DERABLES Final Result Performing Organization Address City/[facility]/ZIP Co de Phone Number [facility] [address] [place] [address], [place] [phone] * Lipid panel (10/27/2022) Triglycerides 0 mg/dL Comment:No interpretation, a bstracted Cholesterol 0 mg/dL Comment:No interpretation, a bstracted HDL 0 mg/dL Comment:No interpretation, a bstracted LDL Cholesterol 0 mg/dL Comment:No interpretation, a bstracted Blood Venous blood specimen / Unknown Result [facility] Provider LAB BLOOD ORDERABLES Alis l Result * HIV Screening (03/03/2022) Pathologist [facility] HIV Screening Abstracted [facility] Provider HEALTH MAINTENANCE Final Result * Cervical Cancer Screening: HPV (09/23/2021) Pathologist [facility] Cervical Cancer Screening: HPV Negative, abstracted [facility] Provider HEALTH MAINTENANCE Final Result from Last 3 Months or Most Recently Relevant to Health Maintenance Insurance 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 [address] [place] [phone] PCP - General 8/15/24
== END 2024-04-11 16:09 | disposition home or self-care (01) ==
PROVIDERS: PCP Physician Assistant; Visit Provider Hospitalist
DX: T78.40XA Allergy, unspecified, initial encounter (principal); J45.40 Moderate persistent asthma, uncomplicated; R21 Rash and other nonspecific skin eruption
CPT/HCPCS: 99214

== ENCOUNTER → 2024-04-11 15:27 | Outpatient (BNVA) | payer OTHER, SELFPAY | PROVIDERS: PCP Physician Assistant; Visit Provider Hospitalist | DX: T78.40XA Allergy, unspecified, initial encounter (principal); J45.40 Moderate persistent asthma, uncomplicated; J44.89 Other specified chronic obstructive pulmonary disease; R21 Rash and other nonspecific skin eruption; X58.XXXA Exposure to other specified factors, initial encounter; Y93.9 Activity, unspecified; Y92.9 Unspecified place or not applicable; Y99.9 Unspecified external cause status | CPT/HCPCS: 99212 ==

== ENCOUNTER 2024-05-12 11:04 | Emergency (ER) | payer OTHER, SELFPAY ==
--- NOTE | ~2024-05-12 | CT_ITS ---
CLINICAL HISTORY: LLQ tenderness and pain, rectal bleeding CT abdomen and pelvis with contrast Comparison: None Findings: 1.4 cm nodular focus within the posterior inferior right lower lobe. Unremarkable abdominal organs. Evaluation of the gallbladder is limited by motion artifact. Possible debris within the gallbladder. No calcified gallstones. Mild fecal retention within the colon. No colitis or bowel obstruction. No pneumatosis or portal venous gas. 11 mm left ovarian cyst, compatible with a physiologic cyst. Otherwise unremarkable pelvic contents. Normal appendix. No acute fracture. IMPRESSION: No acute findings. This document has been electronically signed by: Altagracia Alvarez MD on 05/12/2024 17:17:20
[2024-05-12 11:33] VITALS: BP 144/75; PULSE 77; RESP 18; TEMP 36.4; O2SAT 98; BMI 35.9
--- NOTE | 2024-05-12 11:33 | ED_ITS ---
HPI - Back Pain/Injury General Chief Complaint: General Medical Stated Complaint: Back pain Time Seen by Provider: 05/12/24 13:36 Source: patient Mode of arrival: ambulatory Limitations: no limitations History of Present Illness ED Provider: Abbie Almeida PA-C HPI Narrative: 48 yo female presents to the ER for evaluation of rectal bleeding for the last several weeks along with LLQ abdominal pain and low back pain for the last couple of days. She has known hemorrhoids and has intermittently been using hydrocortisone suppositories with only brief improvement. She reports daily rectal bleeding for the last 1-2 months but it got worse yesterday. She reports associated lower abdominal pain, worse on the left and it wraps around to her back. No urinary symptoms. No fever or chills. She denies lightheadedness, dizziness, chest pain, SOB. MD elicited complaint: back pain and other (abd pain, N/V, BRBPR) Onset (ago): day(s) Timing: progressively worsening Severity: moderate Quality: stabbing Location: left flank Radiation: abdomen Exacerbating factors: none Relieving factors: none Context: unknown Associated symptoms: other (rectal bleeding) Related Data Home Medications ?Medication ?Instructions ?Recorded ?Confirmed betamethasone dipropionate 0.05 % appl topical 05/17/23 topical cream Previous Rx's ?Medication ?Instructions ?Recorded acetaminophen 500 mg tablet 500 mg PO Q6H PRN fever or pain 04/15/23 #20 tabs ibuprofen 600 mg tablet 600 mg PO Q6H PRN fever or pain 04/15/23 #20 tabs ondansetron HCl 4 mg tablet 4 mg PO Q6H PRN nausea and 04/15/23 vomiting #14 tabs famotidine 20 mg tablet 20 mg PO DAILY #14 tabs 03/29/24 prednisone 20 mg tablet See Rx Instructions .Route 03/29/24 .COMPLEX #18 tabs famotidine 20 mg tablet (Pepcid AC) 20 mg PO DAILY #30 tabs 03/31/24 hydroxyzine HCl 25 mg tablet 50 mg (2 x 25 mg) PO TID PRN 03/31/24 itching #20 tabs albuterol sulfate 90 mcg/actuation 2 inh inhalation Q6H PRN shortness 04/11/24 aerosol inhaler of breath or wheezing 30 days #18 grams budesonide-formoterol HFA 160 2 puff inhalation BID 30 days 04/11/24 mcg-4.5 mcg/actuation aerosol #10.2 grams inhaler (Symbicort) montelukast 10 mg tablet 10 mg PO BEDTIME 30 days #30 tabs 04/11/24 (Singulair) prednisone 10 mg tablet See Rx Instructions PO DAILY 18 04/11/24 days #63 tabs hydrocortisone 1 %-pramoxine 1 % 1 appl MS BEDTIME PRN hemorrhoids 05/12/24 rectal foam (Proctofoam HC) #10 grams ondansetron 4 mg disintegrating 4 mg PO Q8H PRN nausea and 05/12/24 tablet vomiting #7 tabs Allergies Allergy/AdvReac Type Severity Reaction Status Date / Time tramadol [TRAMADOL] Allergy Unknown NAUSEA, Verified 05/12/24 11:36 VOMITING, DIZZINESS Review of Systems 2 Review of Systems: Yes all other systems are reviewed and are negative [facility] Past Medical History Medical History (Updated 05/12/24 @ 18:05 by DALTON Franco) Rash Asthma Allergy Social History Social History (Updated 05/17/23 @ 15:09 by SHARITA Hicks) Patient Tobacco Use Status: Never used Tobacco Smoked in Last 30 Days: No Use of substances other than those prescribed or required for medical reasons: No Advance Directives: No Advance Directives Information Provided: No Do you have a plan to hurt others: No Plan Physical Exam 2 Vital Signs: Vital Signs: Last Vital Signs Temp 97.0 F 05/12/24 18:34 Pulse 55 05/12/24 18:34 Resp 14 05/12/24 18:34 BP 141/67 H 05/12/24 18:34 Pulse Ox 100 05/12/24 18:34 O2 Del Method Room Air 05/12/24 18:34 BMI result Body Mass Index 35.9 Appearance: Alert. Oriented X3. No acute distress. Head: normocephalic, atraumatic. Eyes: Pupils equal, round and reactive to light. ENT: Pharynx normal. No tonsillar swelling or exudate. Neck: Normal inspection. Neck supple. CVS: Normal heart rate and rhythm. Pulses normal. Respiratory: No respiratory distress. Breath sounds normal. Abdomen: obese, soft. well healed surgical scars c/w tummy tuck surgery. LLQ tenderness to deep palpation, normal active +BS x4 NIKKI: nonbleeding, nontender, nonthrombosed external hemorrhoids, no stool in rectal vault Skin: Skin warm and dry. Normal skin color. Normal skin turgor. No rashes. Extremities: No lower extremity edema. No joint swelling. Neuro/psych: Oriented X 3. No motor deficit. No sensory deficit. CN II-XII intact. Normal speech and cognition. Course Course Course Narrative: This is a Rapid Medical Exam performed in triage by Gracy Cronin PA-C. Full HPI, ROS and PE to be performed by primary ED provider. 48 yo F presenting to the ED c/o bright red brbpr x2 mos, yesterday worsened & now with rectal pain. No AC use. Denies lightheadedness/dizziness. Admits to hx hemorrhoids & states this feels similar. PE: abdomen soft w/suprapubic ttp Plan: labs, UA, occult stool Medications Administered Discontinued Medications Generic Name Dose Route Start Last Admin Trade Name Daxa PRN Reason Stop Dose Admin Iohexol 85 ml 05/12/24 16:40 05/12/24 16:40 Iohexol 350 Mg/Ml 100 Ml Infus..Btl IV 05/12/24 16:41 85 ml ONCE ONE Administration Ketorolac Tromethamine 15 mg 05/12/24 16:44 05/12/24 16:48 Ketorolac Tromethamine 15 Mg/Ml Vial IVPUSH 05/12/24 16:45 15 mg ONCE ONE Administration Morphine Sulfate 4 mg 05/12/24 14:53 05/12/24 15:05 Morphine Sulfate 4 Mg/Ml Cartridge IVPUSH 05/12/24 14:54 4 mg ONCE ONE Administration Protocol Ondansetron HCl 4 mg 05/12/24 14:53 05/12/24 15:05 Ondansetron Hcl 4 Mg/2 Ml Vial IVPUSH 05/12/24 14:54 4 mg ONCE ONE Administration Ondansetron HCl 4 mg 05/12/24 16:52 05/12/24 17:04 Ondansetron Hcl 4 Mg/2 Ml Vial IVPUSH 05/12/24 16:53 4 mg ONCE ONE Administration Medical Decision Making Medical Decision Making MDM Narrative: 48-year-old female with a history of hemorrhoids presents to the ER for evaluation of rectal bleeding for the last 2 months, acutely worse yesterday along with left lower quadrant abdominal pain. she developed dry heaving while here. she was found have left lower quadrant tenderness on examination. Lab workup today is showing some new mild microcytic anemia with hemoglobin of 10 and hematocrit of 33. Platelets are normal. No leukocytosis. Renal function is normal. CT scan of the abdomen was performed which was normal. Patient improved after receiving morphine and Zofran. She is tolerating p.o.. She had no episodes of rectal bleeding here. Her hemorrhoids are nonbleeding on examination. At this time she is stable for discharge home with treatment for hemorrhoids and antiemetics. Dietary changes were discussed. Outpatient referral for possible hemorrhoidectomy has also been discussed. Stable for DC, return precautions were discussed Differential Diagnosis Differential Diagnoses: The differential diagnosis associated with the presentation includes internal hemorrhoids, external hemorrhoids, gastroenteritis, colitis, diverticulitis, pyelonephritis, UTI Admission/Observation Consideration of admission/observation: Escalation of care including admission/observation considered Lab Data MDM Lab Attestation statement: I reviewed the patient's lab results. mild microocytic anemia, normal LFTs 05/12/24 11:58 05/12/24 11:58 Labs: Lab Results 05/12/24 05/12/24 Range/Units 11:58 13:30 WBC 8.8 (4.8-10.8) X10*3/uL RBC 4.28 (4.20-5.50) X10*6/uL Hgb 10.3 L (12.0-16.0) g/dl Hct 33.3 L (37.0-47.0) % MCV 77.8 L (80.0-98.0) fL MCH 24.1 L (27.0-33.0) pg MCHC 30.9 L (31.0-35.0) g/dl RDW 15.2 (11.0-16.0) % Plt Count 383 (160-400) X10*3/uL MPV 11.7 (9.4-12.3) fL Immature Gran % (Auto) 0.2 (0.0-0.4) % Neut % (Auto) 57.3 (45-73) % Lymph % (Auto) 30.6 (20-40) % [place] % (Auto) 8.4 (2-11) % Eos % (Auto) 2.7 (0-4) % Baso % (Auto) 0.8 (0-2) % Lymph # (Auto) 2.7 (1.2-4.9) X10*3/uL [place] # (Auto) 0.7 (0.1-1.2) X10*3/uL Eos # (Auto) 0.2 (0.0-0.4) X10*3/uL Baso # (Auto) 0.1 (0.0-0.2) X10*3/uL Abs Immat Gran (auto) 0.02 (0.00-0.03) X10*3/uL Absolute Neuts (auto) 5.1 (2.0-8.3) x10*3/uL Absolute Nucleated RBC 0.000 (0.0-0.012) X10*3/uL Nucleated RBC % (auto) 0.0 (0.0-0.2) /100WBC Sodium 141 (135-145) mmol/L Potassium 4.3 (3.3-5.1) mmol/L Chloride 114 H (96-108) mmol/L Carbon Dioxide 24 (22-29) mmol/L Anion Gap 7 L (12-20) BUN 17 H (9-16) mg/dL Creatinine 0.63 (0.5-1.4) mg/dL Estim Creat Clear Calc 129.3 Estimated GFR > 60 Random Glucose 98 (60-115) mg/dL Calcium 8.8 (8.4-10.2) mg/dL Magnesium 1.8 (1.6-2.6) mg/dL Total Bilirubin 0.2 (0.0-1.0) mg/dL Direct Bilirubin < 0.2 (0.0-0.5) mg/dL AST 20 (5-31) U/L ALT 24 (0-31) U/L Alkaline Phosphatase 69 (39-117) U/L Total Protein 7.6 (6.5-8.0) g/dL Albumin 4.1 (3.5-5.0) g/dL Lipase 20 (8-78) U/L Urine Color Yellow Urine Appearance Clear Urine pH 5.5 (5.0-9.0) Ur Specific [place] >= 1.030 H (1.005-1.025) Urine Protein Negative (Neg-Trace) mg/dL Urine Glucose (UA) Negative (Negative) mg/dL Urine Ketones Trace (Negative) mg/dL Urine Blood Negative (Negative) Urine Nitrite Negative (Negative) Ur Leukocyte Esterase Negative (Negative) Urine Test NEGATIVE (NEGATIVE) Independent Interpretation I performed an independent interpretation of an: CT Scan Interpretation: no pericolonic stranding or abscess apprecaited Radiology Impression Discussion of test interpretation with radiology: I have reviewed the radiologist's reading. External Record Review External record reviewed: Outpatient record and Prior outpatient labs Prescription Management I considered prescription management with: Pain Medication and Antibiotic Chronic Conditions Patient?s care impacted by: Other (hemorrhoids) Critical Care Time Critical Care Time Critical Care Time: Yes Total Critical Care Time: 32 Attestation: I have personally provided critical care time exclusive of time spent on separately billable procedures. Time includes review of lab data, radiology results, bedside reassessment after administration of IV narcotics, and monitoring for potential decompensation. Intervention performed as documented. Discharge Plan Discharge Clinical Impression: Rectal bleeding, Gastroenteritis Patient Disposition: Home, Self-Care Instructions: Rectal Bleeding (ED), Gastroenteritis (DC) Additional Instructions: Your urine test was negative for infection and . You have some mild anemia from your rectal bleeding Recommend using the prescribed medication for your hemorrhoids. Follow up with general surgery for evaluation of removal Your CT scan was normal You most likely have a viral GI bug also known as gastroenteritis. Treatment is supportive care, symptoms usually resolve on their own in 48-72 hours. Recommend rest and plenty of oral hydration. Stick to a bland diet like soup and toast while you are not feeling well. Take the prescribed medication as needed for nausea. Recommend over the counter Pepto Bismol or Imodium for upset stomach and diarrhea. Follow up with your doctor as needed. If you develop new or worsening symptoms call 911 or come back to the ER for further evaluation. Prescriptions: New Proctofoam HC 1-1 % foam 1 appl MS BEDTIME PRN (Reason: hemorrhoids) Qty: 10 0RF ondansetron 4 mg tablet,disintegrating 4 mg PO Q8H PRN (Reason: nausea and vomiting) Qty: 7 0RF No Action ibuprofen 600 mg tablet 600 mg PO Q6H PRN (Reason: fever or pain) Qty: 20 0RF acetaminophen 500 mg tablet 500 mg PO Q6H PRN (Reason: fever or pain) Qty: 20 0RF ondansetron HCl 4 mg tablet 4 mg PO Q6H PRN (Reason: nausea and vomiting) Qty: 14 0RF prednisone 20 mg tablet See Rx Instructions .ROUTE .COMPLEX Qty: 18 0RF Rx Instructions: 60 milligrams (3 tabs) x3 days, then 40 milligrams (2 tabs) x3 days, then 20 milligrams (1 tab) x3 days famotidine 20 mg tablet 20 mg PO DAILY Qty: 14 0RF hydroxyzine HCl 25 mg tablet 50 mg PO TID PRN (Reason: itching) Qty: 20 0RF famotidine [Pepcid AC] 20 mg tablet 20 mg PO DAILY Qty: 30 0RF betamethasone dipropionate 0.05 % cream topical montelukast [Singulair] 10 mg tablet 10 mg PO BEDTIME 30 Days Qty: 30 11RF prednisone 10 mg tablet See Rx Instructions PO DAILY 18 Days Qty: 63 0RF Rx Instructions: PO daily; Take 6 tabs daily x 3 days, then 5 tabs x 3 days, then 4 tabs x 3 days, then 3 tabs x 3 days, then 2 tabs daily x 3 days, then 1 tab x 3 days to complete. budesonide-formoterol [Symbicort] 160-4.5 mcg/actuation HFA aerosol inhaler 2 puff inhalation BID 30 Days Qty: 10.2 11RF albuterol sulfate 90 mcg/actuation HFA aerosol inhaler 2 inh inhalation Q6H PRN (Reason: shortness of breath or wheezing) 30 Days Qty: 18 12RF Referrals: [facility] [place] [facility] [Provider Group] (hemorrhoids) Ailyn Velázquez MD [Primary Care Provider] - Print Language: Hebrew
[2024-05-12 12:03] LABS: MANUAL DIFF FLAG NO
[2024-05-12 12:07] LABS: Basophils Absolute Auto 0.1 X10*3/uL (0.0-0.2); Basophils Percent Auto 0.8 % (0-2); Eosinophils Absolute Auto 0.2 X10*3/uL (0.0-0.4); Eosinophils Percent Auto 2.7 % (0-4); Hematocrit 33.3 % (37.0-47.0); Hemoglobin 10.3 g/dl (12.0-16.0); Imm Gran Abs Auto 0.02 X10*3/uL (0.00-0.03); Imm Gran Pct Auto 0.2 % (0.0-0.4); Lymphocytes Absolute Auto 2.7 X10*3/uL (1.2-4.9); Lymphocytes Percent Auto 30.6 % (20-40); Mean Corpuscular HGB Conc 30.9 g/dl (31.0-35.0); Mean Corpuscular Hemoglobin 24.1 pg (27.0-33.0); Mean Corpuscular Volume 77.8 fL (80.0-98.0); Mean Platelet Volume 11.7 fL (9.4-12.3); Monocytes Absolute Auto 0.7 X10*3/uL (0.1-1.2); Monocytes Percent Auto 8.4 % (2-11); Neutrophils Absolute Auto 5.1 x10*3/uL (2.0-8.3); Neutrophils Percent Auto 57.3 % (45-73); Platelet Count 383 X10*3/uL (160-400); Red Blood Count 4.28 X10*6/uL (4.20-5.50); Red Cell Distribution Width 15.2 % (11.0-16.0); White Blood Count 8.8 X10*3/uL (4.8-10.8)
[2024-05-12 12:19] LABS: Alanine Aminotransferase 24 U/L (0-31); Albumin Level 4.1 g/dL (3.5-5.0); Alkaline Phosphatase 69 U/L (39-117); Anion Gap 7 (12-20); Aspartate Amino Transferase 20 U/L (5-31); Bilirubin Direct < 0.2 mg/dL (0.0-0.5); Bilirubin Total 0.2 mg/dL (0.0-1.0); Blood Urea Nitrogen 17 mg/dL (9-16); Calcium 8.8 mg/dL (8.4-10.2); Carbon Dioxide 24 mmol/L (22-29); Chloride 114 mmol/L (96-108); Creatinine Clr Calc Pharmacy 129.3; Estimated Glomerular Filt Rate > 60; Glucose Random 98 mg/dL (60-115); Lipase 20 U/L (8-78); Magnesium 1.8 mg/dL (1.6-2.6); Potassium 4.3 mmol/L (3.3-5.1); Sodium 141 mmol/L (135-145); Total Protein 7.6 g/dL (6.5-8.0)
[2024-05-12 13:26] VITALS: BP 139/79; PULSE 67; RESP 14; TEMP 36.3; O2SAT 100
[2024-05-12 13:55] LABS: Appearance Urine Clear; Color Urine Yellow; Glucose Urine UA Negative (Negative); Leukocyte Esterase Urine Negative (Negative); Nitrite Urine Negative (Negative); PH 5.5 (5.0-9.0); Specific Gravity - Urine >= 1.030 (1.005-1.025); Urine Blood Negative (Negative); Urine Ketones Trace mg/dL (Negative); Urine Protein Negative (Neg-Trace)
--- NOTE | 2024-05-12 14:06 | PC.NURSE ---
pt is alert and oriented, skin appropriate for ethnicity, respirations even and unlabored, pt reports for about a month and half pt has been having rectal bleeding-reports hx of hemorrhoids and has been using suppository, pt reports lower back pain that a 7/10 and mid abd pain that's also a 7/10, bowel sounds in all 4 quadrants abd, abd soft but slightly tender with palpation
[2024-05-12] MEDS: Morphine Sulfate 4 MG/ML CARTRIDGE IVPUSH (15:05)
[2024-05-12] MEDS: ondansetron HCL 4 MG/2 ML VIAL IVPUSH ×2 (15:05→17:04)
[2024-05-12 16:10] LABS: Urine Pregnancy NEGATIVE (NEGATIVE)
[2024-05-12 16:11] LABS: UPreg QC Valid YES
[2024-05-12] MEDS: iohexoL 350 MG/ML 100 ML INFUS..BTL 85 ML IV (16:40)
[2024-05-12] MEDS: Ketorolac Tromethamine 15 MG/ML VIAL IVPUSH (16:48)
--- NOTE | 2024-05-12 17:05 | PC.NURSE ---
pt still actively nauseous - additional zofran ordered by provider/administered. effectiveness pending.
[2024-05-12 18:34] VITALS: BP 141/67; PULSE 55; RESP 14; TEMP 36.1; O2SAT 100
[2024-05-12 18:39] VITALS: BP 141/67; PULSE 55; RESP 14; TEMP 36.1; O2SAT 100
== END 2024-05-12 18:44 | disposition home or self-care (01) ==
PROVIDERS: Physician Assistant; Emergency Provider Emergency Medicine; PCP Internal Medicine
DX: K52.9 Noninfective gastroenteritis and colitis, unspecified (principal); M54.50 Low back pain, unspecified; R11.2 Nausea with vomiting, unspecified; R10.32 Left lower quadrant pain; Z79.899 Other long term (current) drug therapy
CPT/HCPCS: 36415; 74177; 80048; 80076; 81003; 81025; 83690; 83735; 85025; 96374; 96375; 96376; 99284; J1885; J2270; J2405; Q9967

== ENCOUNTER → 2024-05-12 14:53 | Outpatient (BNV) | payer OTHER, SELFPAY | PROVIDERS: Emergency Provider Emergency Medicine; PCP Internal Medicine; Visit Provider Radiology Diagnostic Radiology | DX: R10.32 Left lower quadrant pain (principal); K62.5 Hemorrhage of anus and rectum | CPT/HCPCS: 74177 ==

== ENCOUNTER 2024-09-18 13:19 | Outpatient (AMB) | payer OTHER, SELFPAY ==
--- NOTE | 2024-09-18 13:25 | MHC.OFFVIS ---
Vital Signs 09/18/24 13:27 Height 5 ft 5 in Weight 200 lb 9.93 oz BMI 33.4 BP 128/81 Blood Pressure Location Lt brachial Position Sitting Pulse 72 Intake Visit Reasons: Blood in stools Intake Note: Brittaney presents in the office as a new patient for blood in the stools. CC: She does not have any other concerns other than ocasional blood in stool. [employer] Required: No Allergies tramadol (TRAMADOL) Allergy (Unknown, Verified 09/18/24 13:29) NAUSEA, VOMITING, DIZZINESS HPI Comments Details: 49 y.o F with PMH of who is here for rectal bleeding. Seen with Bre SONI for interpretation. Reports occured started almost 8 months ago - at that time unable to recall trigger. Would notice blood rectally even without passing a BM. Assoc with rectal pressure and pain. Was seen in ER for this april, noted to be anemic. Reports weight gain of almost 40 lbs in the past 6 months. Last colo was > 5 years ago done for rectal bleeding which was deemed to be from hemorrhoids. [facility] Medical History Rash Asthma Allergy Social History Patient Tobacco Use Status: Never used Tobacco Review of Systems Const All systems reviewed & are unremarkable except as noted in HPI and below Physical Exam Vital Signs: Last Vital Signs Pulse 72 09/18/24 13:27 BP 128/81 09/18/24 13:27 BMI result Body Mass Index 33.4 Assessment & Plan Assessment & Plan (1) Bright red rectal bleeding: Code(s): K62.5 - Hemorrhage of anus and rectum Category: Medical (2) Anemia: Code(s): D64.9 - Anemia, unspecified Category: Medical Plan given the significant amount of bleeding, an ongoing symptoms, we will recheck labs. If continues to have iron-deficiency anemia, will offer iron supplementation p.o. or IV. In the meantime, she is also being scheduled for urgent EGD and colonoscopy for evaluation of iron-deficiency anemia. Plan: -labs as below - PEG prep given to the patient, and instructions reviewed with the help of health plan manager - handout also provided -Avoid NSAIDs Follow-up after EGD colonoscopy Orders: Orders Complete Blood Count no Diff 07/28/25 D64.9 - Anemia, unspecified Immunoglobulin A 09/18/24 D64.9 - Anemia, unspecified Transglutaminase IgA 09/18/24 D64.9 - Anemia, unspecified Ferritin 09/18/24 D64.9 - Anemia, unspecified IRON PROFILE 09/18/24 D64.9 - Anemia, unspecified Vitamin B12 and Folate 09/18/24 D64.9 - Anemia, unspecified Medications: New peg 3350-electrolytes 236-22.74-6.74 -5.86 gram (Golytely) as per split prep instructions, until fecal effluent is clear 240 mL PO Q10M 4,000 mL 0RF colonoscopy Coding Level of Care Code New Pt Level 4 (33112) Diagnoses Bright red rectal bleeding K62.5 Anemia D64.9
[2024-09-18 13:27] VITALS: BP 128/81; PULSE 72; BMI 33.4
--- OUTSIDE RECORDS SUMMARY | 2024-09-18 14:02 | XMS_ITS | Clinical Summary ---
Author Organization [facility] Address [address] [place] [address] Care Team Providers Care Language And Literature Division Chair Name Role Phone Becky Gutierrez PA-C Primary [...] needed for muscle spasms 30 Tablet 1 1 Active meloxicam (MOBIC) 15 mg tabletIndications: Primary osteoarthritis involving multiple joints TAKE 1 TABLET BY MOUTH EVERY DAY WITH FOOD NEEDED FOR PAIN 2 Active folic acid (FOLVITE) 1 mg tabletIndications: Routine general medical examination at a health care facility Take 1,000 mcg by mouth once daily 2 Active EPINEPHrine (EPIPEN) 0.3 mg/0.3 mL pen injectorIndication s:Routine general medical examination at a health care facility Inject 0.3 mg into the muscle 1 Active ferrous sulfate 325 mg (65 mg iron) tablet Take 1 Tablet by mouth 2 (two) times daily with a meal 60 Tablet 11 2 Active ascorbic acid, vitamin C, (VITAMIN C) 250 mg tablet Take 1 Tablet by mouth 2 (two) times daily 60 Tablet 11 2 Active triamcinolone (KENALOG) 0.1 % creamIndications:A topic dermatitis, unspecified type APPLY TOPICALLY TO THE AFFECTED AREA 3 TIMES A WEEK 80 g 1 3 Active loratadine (CLARITIN) 10 mg tabletIndications: Non-seasonal allergic rhinitis, unspecified trigger Take 1 Tablet by mouth nightly at bedtime 90 Tablet 1 3 Active hydrocortisone 1 % creamIndications:P soriasis APPLY TOPICALLY ONCE DAILY NEEDED FOR FACIAL RASH 56 g 1 4 Active VENTOLIN HFA 90 mcg/actuation inhaler INHALE 2 PUFFS INTO THE LUNGS EVERY 4 HOURS NEEDED FOR SHORTNESS OF BREATH OR WHEEZING 18 g 5 4 Active ibuprofen 800 mg tabletIndications: Neck pain,Primary osteoarthritis involving multiple joints TAKE 1 TABLET BY MOUTH THREE TIMES DAILY NEEDED FOR PAIN 270 Tablet 2 4 Active SYMBICORT 160-4.5 mcg/actuation inhalerIndications :Mild intermittent asthma with exacerbation ([facility]) INHALE 2 PUFFS INTO THE LUNGS TWICE DAILY 30.6 g 3 4 Active triamcinolone (KENALOG) 0.1 % ointmentIndication s:Psoriasis APPLY TOPICALLY TO THE AFFECTED AREA EVERY DAY NEEDED FOR PSORIASIS 60 g 1 4 Active omeprazole (PRILOSEC) [address] capsuleIndications :Dyspepsia TAKE 1 CAPSULE BY MOUTH EVERY MORNING BEFORE BREAKFAST 90 Capsule 1 5 Active Active Problems Problem Noted Date Diagnosed Date Dr. Omar Mirza 12/27/2019 Neck pain 12/30/2018 Primary osteoarthritis involving multiple joints 12/30/2018 Pre-diabetes 06/21/2018 S/P left knee arthroscopy 05/13/2018 [facility] 2018 S/P RIGHT rotator cuff surgery 01/25/2018 [facility] Migraine headaches 03/29/2014 Asthma, mild intermittent ([facility]) 12/16/2012 Resolved Problems Problem Noted Date Diagnosed Date Resolved Date Plantar fasciitis 12/30/2018 04/27/2022 Right wrist tendonitis s/p s urgery 08/25/2017 [facility] 06/21/2018 04/27/2022 Immunizations Immunization Administration Dates Next Due Flu, Adjuvant, 65y+ (Fluad) 12/16/2019 Flu, Preservative Free 12/16/2019 INFLUENZA, SEASONAL, INJECTABLE, PRESERVATIVE FR EE 12/16/2012 Influenza, Intradermal, Quad rivalent, Preservative Free 12/16/2012 PNEUMOCOCCAL POLYSACCHARIDE PPV23 (Pneumovax 23) 07/22/2016 PPD 04/09/2020,03/06/2015 TDAP 10/27/2022 Td (adult),2 Lf tetanus toxo id (TDVAX), preservative free 04/05/2017 Family History Medical History Relation [...] 67 10/27/2022 8:42 AM EDT Temperature 36.5 C (97.7 F) 10/27/2022 8:42 AM EDT Respiratory Rate 16 10/27/2022 8:42 AM EDT Oxygen Saturation 98% 10/27/2022 8:42 AM EDT Inhaled Oxygen Concentration - - Weight 87.1 kg (192 lb) 10/27/2022 8:42 AM EDT Height 165.1 cm (5' 5 ) 10/27/2022 8:42 AM EDT Body Mass Index 31.95 10/27/2022 8:42 AM EDT Plan of Treatment Health Maintenance Due Date Last Done Comments Anxiety Screening 1977 Tobacco Screening 1975 Imm-Pneumococcal (2 of 2 - PCV) 07/22/2017 7 Relationship Safety Screening/Counseling 06/17/2022 06/17/2021 CT Colonography 2022 Colonoscopy 2022 Colorectal Cancer Screening 2022 FIT/gFOBT 2022 Fecal DNA 2022 Flexible Sigmoidoscopy 2022 [id number] ( season) 2023 021, 11/07/2020 Hypertension Screening (#1) 10/27/2023 Annual Wellness (Adult): Indicated (All Coverage) 10/28/2023 10/27/2022, 06/17/2021, 12/27/2019, Additional history exists Diabetes Screening 10/28/2023 10/27/2022, 0 10/27/2022, 03/03/2022, Additional history exists Breast Cancer Screening (Mammogram) 11/14/2023 11/13/2022, 06/26/2021, 06/26/2021, Additional history exists Alcohol and Drug Screen 02/23/2024 02/24/19 23, 06/17/2021, 11/27/2019, Additional history exists Depression Annual Screen 02/23/2024 023, 10/04/2015, 03/29/2014 (Managed by Outside Provider) Pap Smear 09/23/2024 09/23/2021, 08/0 03/2021, 10/31/2019, Additional history exists Imm-Influenza (#1) 2024 12/16/2019, 1 , 12/16/2012 Cervical Cancer Screening 09/23/2026 HPV Screening 09/23/2026 09/23/2021, 12/31/2018 Pap + HPV 09/23/2026 09/23/2021, 03/2021, 10/31/2019, Additional history exists Lipid Screening 10/28/2027 10/27/2022, 08/2021, 06/17/2021, Additional history exists Imm-DTaP/Tdap/Td (2 [...] Recently Relevant to Health Maintenance Results * Screening MAMMO (11/13/2022 3:00 AM EDT) 11/13/2022 3:00 AM EDT us Becky Gutierrez PA-C IMG MAMMO Edited Resul t - Final * (ABNORMAL) LIPID PANEL (10/27/2022 9:22 AM EDT) Pathologist [facility] CHOLESTEROL, TOTAL 224(H) <200 mg/dL [facility] HDL CHOLESTEROL 58 > OR = 50 mg/dL [facility] TRIGLYCERIDES 114 <150 mg/dL [facility] LDL-CHOLESTEROL 143(H) 99 mg/dL (calc) [facility] Comment: Reference range: <100 Desirable range <100 mg/dL for primary prevention; <70 mg/dL for patients with CHD or diabetic patients with > or = 2 CHD risk factors. LDL-C is now calculated using the Megan calculation, which is a validated novel method providing better accuracy than the Friedewald equation in the estimation of LDL-C. Morro SS et al. JESE. 2013;310(19): 0326-8419 (http://education.streamOnce/faq/MVT951) CHOL/HDLC RATIO 3.9 <5.0 (calc) [facility] NON-HDL CHOLESTEROL 166(H) <130 mg/dL (calc) [facility] Comment: For patients with diabetes plus 1 major ASCVD risk factor, treating to a non-HDL-C goal of <100 mg/dL (LDL-C of <70 mg/dL) is considered a therapeutic option. Blood Blood / Unknown 10/27/2022 9 :22 AM EDT 10/27/2022 9:22 AM EDT Narrative [facility] - 10/28/2022 4:56 PM EDT FASTING:YES us Becky Gutierrez PA-C LAB - BLOOD DRAW Final Resul t [facility] [address] [address], [facility] [address] [address] * (ABNORMAL) COMPREHENSIVE METABOLIC PANEL (10/27/2022 9:22 AM EDT) GLUCOSE 101(H) 65 - 99 mg/dL [facility] Comment: Fasting reference interval For someone without known diabetes, a glucose value between 100 and 125 mg/dL is consistent with prediabetes and should be confirmed with a follow-up test. UREA NITROGEN (BUN) 20 7 - 25 mg/dL [facility] CREATININE (blood) 0.74 0.50 - 0.99 mg/dL [facility] EGFR 102 > OR = 60 mL/min/1. 73m2 [facility] BUN/CREATININE RATIO SEE NOTE: [facility] Comment: Not Reported: BUN and Creatinine are within reference range. SODIUM 138 135 - 146 mmol/L [facility] POTASSIUM 5.1 3.5 - 5.3 mmol/L [facility] CHLORIDE 106 98 - 110 mmol/L [facility] CARBON DIOXIDE 25 20 - 32 mmol/L [facility] CALCIUM 9.1 8.6 - 10.2 mg/dL [facility] PROTEIN, TOTAL 7.0 6.1 - 8.1 g/dL [facility] ALBUMIN 4.1 3.6 - 5.1 g/dL [facility] GLOBULIN 2.9 1.9 - 3.7 g/dL (calc) [facility] ALBUMIN/GLOBULI N RATIO 1.4 1.0 - 2.5 (calc) [facility] BILIRUBIN, TOTAL 0.5 0.2 - 1.2 mg/dL [facility] ALKALINE PHOSPHATASE 60 31 - 125 U/L [facility] AST 15 10 - 35 U/L [facility] ALT 12 6 - 29 U/L [facility] Blood Blood / Unknown 10/27/2022 9 :22 AM EDT 10/27/2022 9:22 AM EDT Narrative [facility] - 10/28/2022 4:56 PM EDT FASTING:YES us Becky Gutierrez PA-C LAB - BLOOD DRAW Edited Resu lt - Final [facility] [address] [address], [facility] [address] [address] * HIV 1/2 AG & AB W/RFLX (4TH GEN) (03/03/2022 8:45 AM EST) HIV AG/AB, 4TH GEN NON-REAC TIVE NON-REAC TIVE [facility] Comment: HIV-1 antigen and HIV-1/HIV-2 antibodies were not detected. There is no laboratory evidence of HIV infection. PLEASE NOTE: This information has been disclosed to you from records whose confidentiality may be protected by state law. If your state requires such protection, then the state law prohibits you from making any further disclosure of the information without the specific written consent of the person to whom it pertains, or as otherwise permitted by law. A general authorization for the release of medical or other information is NOT sufficient for this purpose. For additional information please refer to [email or web address]/faq/CLZ636 (This link is being provided for informational/ educational purposes only.) The performance of this assay has not been clinically validated in patients less than 2 years old. Blood Blood / Unknown 03/03/2022 8 :45 AM EST 03/03/2022 8:46 AM EST us Becky Gutierrez PA-C LAB - BLOOD DRAW Final Resul t Performing Organization Address City/State/[facility] Co de Phone Number [facility] [address] [address], [facility] [address] ([facility] [place] [address] * HEPATITIS C AB W/RFLX HCV RNA, QT, RT PCR (01/27/2022 8:44 AM EST) HEPATITIS C ANTIBODY NON-REACT MERRY NON-REACT MERRY [facility] SIGNAL TO CUT-OFF 0.08 <1.00 [facility] Comment: HCV antibody was non-reactive. There is no laboratory evidence of HCV infection. In most cases, no further action is required. However, if recent HCV exposure is suspected, a test for HCV RNA (test code 84710) is suggested. For additional information please refer to [email or web address]/faq/IKP32b2 (This link is being provided for informational/ educational purposes only.) Blood Blood / Unknown 01/27/2022 8 :44 AM EST 01/27/2022 8:45 AM EST Becky Gutierrez PA-C LAB - BLOOD DRAW Edited Resu lt - Final Performing Organization Address City/[facility]/ZIP Co de Phone Number [facility] [address] [address], [facility] [address] [address] * PAP SMEAR W/HPV (09/23/2021 10:00 AM EDT) PAP SMEAR INTERPRETATION NORMAL NORMAL [facility] HPV (HUMAN PAPILLOMA) NEGATIVE NEGATIVE [facility] HPV TYPE 16 NEGATIVE NEGATIVE [facility] HPV TYPE 18 NEGATIVE NEGATIVE [facility] Swab 09/23/2021 10:0 0 AM EDT [facility] - 03/02/2022 1:34 PM EST Negative for squamous intraepithelial lesion and malignancy Fungal organisms morphologically consistent with Sharita spp. High risk HPV assay: Negative Provider [facility] - PATHOLOGY AND CYTOLOGY AMB ULATORY Final Result Performing Organization Address City/[facility]/ZIP Co de Phone Number [facility] [address] [place] [address], * PAP W/ HPV (09/23/2021 3:00 AM EDT) 09/23/2021 3:00 AM EDT Becky Gutierrez PA-C LAB - PATHOLOGY AND CYTOLOGY AMBULATORY Final Result from Last 3 Months or Most Recently Relevant to Health Maintenance Insurance [address] [employer] Care Teams Language And Literature Division Chair Relationship Specialty Start Date End Date Becky Gutierrez PA-C [address] [place] [address] PCP - General Internal Medicine 10/20/17
--- OUTSIDE RECORDS SUMMARY | 2024-09-18 14:02 | XMS_ITS | Clinical Summary ---
Author Organization [facility] Address [address] [place] [address] Phone Care Team Providers Care Typing Section Chief Name Role Phone Ailyn Velázquez MD Primary Care Provider + Allergies Active Allergy Reactions Criticality Noted Date Comments Tramadol Dermatitis,Rash 06/04/2016 Medications Lactobacillus acidophilus 100 mg (1 billion cell) capsule Take 1 capsule by mouth 2 (two) times a day. Active folic acid (FOLVITE) 1 mg tablet Take 1 tablet (1,000 mcg total) by mouth 1 (one) time each day. Active Ventolin HFA 90 mcg/actuation inhaler Inhale 2 puffs by mouth Every 4 hours as needed. Active amitriptyline (ELAVIL) 10 mg tablet Take 1 tablet (10 mg total) by mouth. at bedtime Active Symbicort 160-4.5 mcg/actuation inhaler Inhale 2 puffs by mouth 2 times daily. Active gabapentin (NEURONTIN) 100 mg capsule Active hydroxychloroqu ine (PLAQUENIL) 200 mg tablet Take 1 tablet (200 mg total) by mouth 1 (one) time each day. Active hydrOXYzine HCL (ATARAX) 25 mg tablet TAKE 1 TABLET BY MOUTH THREE TIMES DAILY NEEDED FOR ITCHING Active ibuprofen (ADVIL,MOTRIN) 800 mg tablet Take 1 tablet (800 mg total) by mouth 3 (three) times a day if needed. Active montelukast (SINGULAIR) 10 mg tablet Take 1 tablet (10 mg total) by mouth. at bedtime. Active SUMAtriptan (IMITREX) 50 mg tablet TAKE 1 TABLET BY MOUTH DAILY NEEDED FOR MIGRAINE HEADACHE. MAY REPEAT DOSE AFTER 2 HOURS UP TO A. MAXIMUM OF 2 Active betamethasone dipropionate (DIPROSONE) 0.05 % cream Active meloxicam (MOBIC) 15 mg tablet Take 1 tablet (15 mg total) by mouth 1 (one) time each day. Active omeprazole (PriLOSEC) [address] capsule Take 1 capsule (20 mg total) by mouth 1 (one) time each day before breakfast. Active EPINEPHrine (EPIPEN) 0.3 mg/0.3 mL injection ADMINISTER 0.3 MG IN THE MUSCLE 1 TIME Active famotidine (PEPCID) 20 mg tablet Take 1 tablet (20 mg total) by mouth 1 (one) time each day. Active hydrocortisone 2.5 % ointment Active hydroquinone (GERMANIA) 4 % cream Active fluconazole (DIFLUCAN) 150 mg tablet Take one tablet today. Repeat the dose if there is no improvement in 3 days. 2 tablet Active terconazole (TERAZOL 7) 0.4 % vaginal cream INSERT 1 APPLICATORFUL VAGINALLY AT BEDTIME FOR 7 DAYS 45 g Active Premarin vaginal cream INSERT 0.5G(1 APPLICATORFUL) INTO THE VAGINA 2 TIMES A WEEK 30 g Active calcipotriene (DOVONEX) 0.005 % cream APPLY TOPICALLY TO THE AFFECTED AREA TWICE DAILY FOR PSORIASIS Active Proctofoam HC rectal foam APPLY 1 APPLICATION AT BEDTIME NEEDED FOR HEMORRHOIDS Active loratadine (CLARITIN) 10 mg tablet Active norethindrone (INGRID,PHOEBE,H EATHER,MICRONOR ) 0.35 mg tablet TAKE 1 TABLET BY MOUTH DAILY 28 tablet 12 Active norethindrone (INGRID,PHOEBE,H EATHER,MICRONOR ) 0.35 mg tablet Take 1 tablet (0.35 mg total) by mouth 1 (one) time each day. for 360 days 2024 Discontinued Active Problems Problem Noted Date Diagnosed Date Cervical radiculopathy 05/08/2024 Class 1 obesity 05/08/2024 Hemorrhoids 05/08/2024 Moderate persistent asthma without complication 05/08/2024 Other headache syndrome 05/08/2024 Psoriasis 05/08/2024 Strain of cervical portion of both trapezius mus cles 05/08/2024 Umbilical mass 05/08/2024 Left ovarian cyst 05/08/2024 Overview (05/08/2024): 03/2024 Stable simple appearing 13 mm cyst exophytic ovarian or paraovarian cyst on the left. 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) ~Usual ductal hyperplasia, mild ~Aprocrine metaplasia with aprocine cysts Recommendation 6 mo followup, pt is queta 01/2019 Mammo/breast ultrasound stable left 5mm cyst Neck pain 12/30/2018 Primary osteoarthritis involving multiple joints 12/30/2018 Pre-diabetes 06/21/2018 PCOS (polycystic ovarian syndrome) 09/24/2016 Migraine headache 03/29/2014 Asthma, mild intermittent 12/16/2012 Encounters Date Type Department Care Team Description 06/23/2024 2:00 PM EDT Office Visit Obstetrics & Gynecology [address] [address] Cathy Mckeon CNM Encounter for well woman exam with routine gynecological exam (Primary Dx); Screening breast examination; Screening for cervical cancer; Chronic vaginitis; Family history of ovarian cancer; Bloating; Left ovarian cyst; Benign cyst of left breast from Last 3 Months Immunizations Name Administration [...] Preservative Free, Injectable 12/16/2012 PPD Test 04/09/2020,03/06/2015 [facility] SARS-CoV-2 COVID-19, mRNA, LNP-S, preservative free 12/07/2020,11/07/2020 Pneumococcal polysaccharide 23 valent (Pneumovax 23) 2yo and older 07/22/2016 Td Tetanus diptheria (Tdvax) 7yo and older 04/05 Tdap Tetanus diptheria acell ular pertussis (Boostrix; Adacel) 7yo and older 10/27/2022 Surgical History Surgery Date Site/Laterality Comments TUBAL LIGATION PROCEDURE: HISTORICAL TUBAL LIGATION Medical History Medical History Date Comments Stroke due to embolism ([facility]24, [facility] V28) DX:Stroke due to embolism ([facility]); COMMENT: recovering well Migraine DX:Migraine Family History Medical History Relation Name Comments No Known Problems Father Other: ovarian cancer Mother Breast cancer Neg Hx Colon cancer Neg Hx Uterine cancer Neg Hx Relation Name Status Comments Father Mother 199 5 Social History Tobacco Use Types Packs/Day Years Used Date Smoking Tobacco: Never Smokeless Tobacco: Never Alcohol Use Standard Drinks/Week Comments Yes 0.8 (1 standard drink = 0.6 oz p ure alcohol) Comments No Sex and Gender Information Value Date Recorded Sex Assigned at Not on file Legal Sex Female 11:37 PM EST Gender Identity Not on file Sexual Orientation Not on file 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 Not on file Not on file 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 Not on file Not on file Not [...] Sign Reading Time Taken Comments Blood Pressure 123/71 06/23/2024 1:24 PM EDT Pulse 89 06/23/2024 1:24 PM EDT Temperature - - Respiratory Rate - - Oxygen Saturation - - Inhaled Oxygen Concentration - - Weight 91.8 kg (202 lb 4.8 oz) 06/23/2024 1:24 P M EDT Height 165.1 cm (5' 5 ) 06/23/2024 1:24 PM EDT Body Mass Index 33.66 06/23/2024 1:24 PM EDT Plan of Treatment Health Maintenance Due Date Last Done Comments Hepatitis B Vaccines (1 of 3 - 19+ 3-dose series) 1996 Pneumococcal Vaccine: Pediatrics (0 to 5 Years) and At-Risk Patients (6 to 49 Years) (2 of 2 - PCV) 07/22/2017 07/22/2016 COVID-19 Vaccine (3 - Pfizer risk series) 01/04/2021 12/07/2020, 11/07/2020 Colorectal Cancer Screening: Colonoscopy 01/25/2022 Social Influencers of Health Screening 01/25/2022 Depression Screening 02/23/2024 Influenza Vaccine (#1) 2024 2, 12/16/2019, 12/16/2019, Additional history exists Breast Cancer Screening 02/09/2026 02/10/20 24, 01/28/2024, 11/13/2022 Cholesterol Screening (Lipid Panel) 10/28/2027 10/27/2022, 10/27/2022, 10/27/2022, Additional history exists Cervical Cancer Screening: HPV 06/23/2029 06/23/2024, 09/23/2021 DTaP,Tdap,and Td Vaccines (3 - Td or [...] age to complete this topic Meningococcal B Vaccine Aged Out No l onger eligible based on patient's age to complete this topic RSV Immunization Patients Under 20 months Aged Out No longer eligible based on patient's age to complete this topic Varicella Vaccines Aged Out No longer eligible based on patient's age to complete this topic Procedures Procedure Name Priority Date/Time Associated Diagnosis Comments CANCER ANTIGEN 125 Routine 06/23/2024 1: 55 PM EDT Encounter for well woman exam with routine gynecological exam Family history of ovarian cancer Bloating TRICHOMONAS VAGINALIS ANTIGEN Routine 06/23/2024 1:51 PM EDT Encounter for well woman exam with routine gynecological exam Chronic vaginitis WET PREP, GENITAL Routine 06/23/2024 1:5 1 PM EDT Encounter for well woman exam with routine gynecological exam Chronic vaginitis PAP SMEAR Routine 06/23/2024 1:43 PM EDT Encounter for well woman exam with routine gynecological exam Screening for cervical cancer HPV WITH REFLEX GENOTYPE Routine 06/23/2024 1:43 PM EDT Encounter for well woman exam with routine gynecological exam Screening for cervical cancer MG MAMMO DIGITAL DIAGNOSTIC BILAT Routine 02/10/2024 2:29 PM EST LIPID PANEL Routine 10/27/2022 HM HIV SCREENING Routine 03/03/2022 from Last 3 Months or Most Recently Relevant to Health Maintenance Results * Cancer antigen 125 (06/23/2024 1:55 PM EDT) CA 125 10.9 <35.0 unit/mL LAB CHEMISTRY METHOD 06/23/2024 6:17 PM EDT [facility] Blood Venous blood specimen / Unknown Venipuncture / Unknown 06/23/2024 1:55 PM EDT 06/23/2024 3:37 PM EDT Narrative [facility] - 06/23/2024 6:17 PM EDT The Siemens Advia Centaur Chemiluminescent Immunoassay is used. Results obtained with different assay methods or kits cannot be used interchangeably. Results cannot be interpreted as absolute evidence of the presence or absence of malignant disease. [facility] LAB BLOOD ORDERABLES Final Re sult Performing Organization Address City/[facility]/ZIP Co de Phone Number [facility] [address] [place] [address], [place] [phone] * Trichomonas vaginalis antigen (06/23/2024 1:51 PM EDT) Trichomonas vaginalis Negative Negative 06/23/2024 6:59 PM EDT [facility] Swab Vaginal structure / Unknown Non-blood Collection / Unknown 06/23/2024 1:51 PM EDT 06/23/2024 4:20 PM EDT [facility] MICROBIOLOGY - GENERAL OR DERABLES Final Result Performing Organization Address [facility]/ZIP Co de Phone Number [facility] [address] [place] [address], [place] [phone] * Wet prep, genital (06/23/2024 1:51 PM EDT) Clue Cells, Wet Prep Negative Negative 06/23/2024 6:59 PM EDT [facility] Yeast, Wet Prep Negative Negative 06/23/2024 6:59 PM EDT [facility] Trichomonas, Wet Prep Indeterminate Negative 06/23/2024 6:59 PM EDT [facility] Comment:Refer to Trichomonas antigen. Swab Vaginal structure / Unknown Non-blood Collection / Unknown 06/23/2024 1:51 PM EDT 06/23/2024 4:20 PM EDT Cathy Mckeon [facility] MICROBIOLOGY - GENERAL OR DERABLES Final Result Performing Organization Address City/[facility]/ZIP Co de Phone Number [facility] [address] [place] [address], [place] [phone] * HPV with reflex genotype (06/23/2024 1:43 PM EDT) HPV Negative Negative LAB MICROBIOLOGY METHOD 06/26/2024 3:58 PM EDT [facility] Brushing/Spatula Cervix uteri structure / Unknown 06/23/2024 1:43 PM EDT 06/26/2024 6:27 AM EDT [facility]LECULAR DI[facility]STICS ORD ERABLES Final Result Performing Organization Address [facility]/ZIP Co de Phone Number [facility] [address] [place] [address], [place] [phone] * Pap smear (06/23/2024 1:43 PM EDT) Interpretation Negative for intraepithelial lesion or malignancy 06/27/2024 9:36 AM EDT [facility] General Categorization Negative 06/27/2024 9:36 AM EDT [facility] LMP 06/14/2024 06/27/2024 9:36 AM EDT [facility] Specimen Adequacy Satisfactory for evaluation, endocervical/owen sformation zone component absent 06/27/2024 9:36 AM EDT [facility] Pap Methodology Liquid Based Pap Test 06/27/2024 9:36 AM EDT [facility] Disclaimer The Pap test is a screening test which carries an inherent false negative rate. These test results should be correlated with the patient's clinical findings and history. This Pap test was processed using an automated screening system. Technical cytopathology services provided by [facility], at [address] [place] [address] ([facility] # [id number]/Ashok Wooten MD, [employer]p [employer].) 06/27/2024 9:36 AM EDT [facility] Console Pap Interpretation Reported 06/27/2024 9:36 AM EDT [facility] Brushing/Spatula Cervix uteri structure / Unknown 06/23/2024 1:43 PM EDT 06/26/2024 6:27 AM EDT Cathy DAVID LAB CYTOLOGY ORDERABLES Final Result [facility] [address] [place] [address], [place] [phone] * MG Mammo Digital Diagnostic bilat (02/10/2024 2:29 PM EST) Anatomical Region Laterality Modality Breast Bilateral Mammography Historical Provider IMG BI PROCEDURES Final R esult * Lipid panel (10/27/2022) [facility] Triglycerides 0 mg/dL Comment:No interpretation, a bstracted Cholesterol 0 mg/dL Comment:No interpretation, a bstracted HDL 0 mg/dL Comment:No interpretation, a bstracted LDL Cholesterol 0 mg/dL Comment:No interpretation, a bstracted Blood Venous blood specimen / Unknown Historical Provider LAB BLOOD ORDERABLES Alis l Result * Hm HIV Screening (03/03/2022) Pathologist [facility] HIV Screening Abstracted Historical Provider HEALTH MAINTENANCE Final Result from Last 3 Months or Most Recently Relevant to Health Maintenance Insurance [facility] MEDICAID ADVANTAGE [address] [place] [address] Advance Directives Documents on File Type Date Recorded Patient Vice President Media Relations Expl anation Health Care Decision (hx) 03/21/2016 AD LENNON DIRECTIVE Health Care Decision (hx) 03/21/2016 AD LENNON DIRECTIVE Health Care Decision (hx) 03/21/2016 AD LENNON DIRECTIVE Care Teams Typing Section Chief Relationship Specialty Start Date End Date Ailyn Velázquez MD [address] [place] [address] [address] [place] [id number] PCP - General 10/07/23
--- OUTSIDE RECORDS SUMMARY | 2024-09-18 14:02 | XMS_ITS | Clinical Summary ---
Author Organization [employer] [facility] Address [address] [facility] [address] [place] [phone] Phone Care Team Providers Care Supervisor Small Appliance Assembly Name Role Phone Nikhil Alex NP Primary Care Provider [phone] Allergies Active Allergy Reactions Criticality Noted Date Comments Tramadol Swelling High 05/02/2023 Medications No known medications Encounters Date Type Department Care Team Description 07/06/2024 Transcribe Orders [facility] [address] [place] [address] Ailyn Velázquez MD Obesity, unspecified class, unspecified obesity type, unspecified whether serious comorbidity present (Primary Dx) from Last 3 Months Social History Tobacco Use Types Packs/Day Years Used Date Smoking Tobacco: Never Tobacco Cessation:Counseling Given: Not Answered Alcohol Use Standard Drinks/Week Comments Never 0 (1 standard drink = 0.6 oz pur e alcohol) Education Answer Date Recorded Are you interested in more education? Not on amber e 05/02/2023 Are you concerned about learning? Not on file 05/02/2023 No 05/02/2023 No 05/02/2023 Digital Access Answer Date Recorded No 05/02/2023 No 05/02/2023 Reliable internet access at home? Not on file 05/02/2023 Device with a working camera? Not on file Intimate Partner Violence Answer Date R ecorded Are you denied basic needs s uch as food, clothing, or medical care? No 05/02/2023 In the past 12 months have y ou been in a relationship with a person who hurts, threatens, or tries to control you? No 05/02/2023 Are you denied basic needs s uch as food, clothing, or medical care? No 05/02/2023 In the past 12 months have y ou been in a relationship with a person who hurts, threatens, or tries to control you? No 05/02/2023 Comments Unknown Sex and Gender Information Value Date Recorded Sex Assigned at Not on file Legal Sex Female 7:34 AM EDT Gender Identity Not on file Sexual Orientation Not on file Last Filed Vital Signs Vital Sign Reading Time Taken Comments Blood Pressure 140/74 05/02/2023 2:21 PM EDT Pulse 73 05/02/2023 2:21 PM EDT Temperature 36.1 C (96.9 F) 05/02/2023 2:21 PM EDT Respiratory Rate 15 05/02/2023 2:21 PM EDT Oxygen Saturation 99% 05/02/2023 2:21 PM EDT Inhaled Oxygen Concentration - - Weight - - Height - - Body Mass Index - - Plan of Treatment Health Maintenance Due Date Last Done Comments DEPRESSION SCREENING 1989 HIV ONE-TIME SCREENING (18-65 YEARS) 08/06/1995 PAP SMEAR 1998 SMOKING STATUS SCREENING (Once After 26 Yrs) 08/06/2003 COLOGUARD 2022 COLONOSCOPY 2022 COLORECTAL CANCER SCREENING 2022 FIT TEST 2022 FOBT 2022 SIGMOIDOSCOPY 2022 VIRTUAL COLONOSCOPY 2022 COVID-19 VACCINE ( season) 2023 MAMMOGRAM 11/13/2024 11/13/2022 LIPID PANEL 10/28/2027 10/27/2022, 09/0 06/2022, 12/29/2021, Additional history exists Adult Td,Tdap Booster 10/27/2032 10/27/2022 HEPATITIS C SCREENING Completed 01/27/2022 HEPATITIS A VACCINES Aged Out No long er eligible based on patient's age to complete this topic HIB VACCINES Aged Out No longer eligi ble based on patient's age to complete this topic MENINGOCOCCAL VACCINES (ACWY) Aged Out No longer eligible based on patient's age to complete this topic MENINGOCOCCAL VACCINES (B) Aged Out N o longer eligible based on patient's age to complete this topic PNEUMOCOCCAL VACCINES (0-49 years) Aged Out No longer eligible based on patient's age to complete this topic Medical Devices Not on file Insurance [facility] Care Teams Supervisor Small Appliance Assembly Relationship Specialty Start Date End Date Nikhil Alex NP [facility] [place] [address] PCP - General Nurse Practitioner 05/02/23 Additional Source Comments The information contained in this document represents components of the legal health record. It is not the complete legal health record.Located Within [facility]
== END 2024-09-18 15:27 | disposition home or self-care (01) ==
LOC: HO.HGI 13:20
PROVIDERS: PCP Internal Medicine; Visit Provider Internal Medicine
DX: K62.5 Hemorrhage of anus and rectum (principal); D64.9 Anemia, unspecified
CPT/HCPCS: 99204

== ENCOUNTER 2024-09-18 13:19 | Outpatient (REF) | payer OTHER, SELFPAY ==
[2024-09-18 14:47] LABS: Hematocrit 33.9 % (37.0-47.0); Hemoglobin 10.2 g/dl (12.0-16.0); Mean Corpuscular HGB Conc 30.1 g/dl (31.0-35.0); Mean Corpuscular Hemoglobin 23.6 pg (27.0-33.0); Mean Corpuscular Volume 78.3 fL (80.0-98.0); NRBC Abs Auto 0.000 X10*3/uL (0.0-0.012); NRBC Pct Auto 0.0 /100WBC (0.0-0.2); Platelet Count 401 X10*3/uL (160-400); Red Blood Count 4.33 X10*6/uL (4.20-5.50); White Blood Count 7.3 X10*3/uL (4.8-10.8)
[2024-09-18 15:39] LABS: Iron 32 mcg/dL (30-160); Percent Iron Saturation 9 % (15-50); Total Iron Binding Capacity 345 mcg/dL (228-428); Unsaturated Iron Binding 313 ug/dL
[2024-09-18 15:43] LABS: Ferritin 6 ng/mL (10-250)
[2024-09-18 15:52] LABS: Folate 8.5 ng/mL (> or = 4.0); Vitamin B12 574 pg/mL (200-900)
[2024-09-19 03:23] LABS: Immunoglobulin A 174 mg/dL (47-310)
== END 2024-09-18 13:20 | disposition home or self-care (01) ==
LOC: HO.LAB 13:19
PROVIDERS: PCP Internal Medicine; Visit Provider Internal Medicine
DX: K62.5 Hemorrhage of anus and rectum (principal); D64.9 Anemia, unspecified
CPT/HCPCS: 36415; 82607; 82728; 82746; 82784; 83540; 85027; 86364; 99202

== ENCOUNTER 2024-10-26 07:17 | Day surgery (SDC) | payer OTHER, SELFPAY ==
--- OUTSIDE RECORDS SUMMARY | 2024-10-05 08:20 | XMS_ITS | Clinical Summary ---
Author Organization [employer] [facility] Address [address] [facility] [address] [place] [address] Phone Care Team Providers Care Inside Account Executive Name Role Phone Nikhil Alex MICHELLE Primary Care Provider [phone] Allergies Active Allergy Reactions Criticality Noted Date Comments Tramadol Swelling High 05/02/2023 Medications No known medications Encounters Date Type Department Care Team Description 07/06/2024 Transcribe Orders [facility] [address] [place] [address] [place] [address] Ailyn Velázquez MD Obesity, unspecified class, unspecified [...] topic Medical Devices Not on file Insurance [facility] A[facility] Care Teams Inside Account Executive Relationship Specialty Start Date End Date Nikhil Alex FNP [facility] [place] [phone] PCP - General Nurse Practitioner 05/02/23 Additional Source Comments The information contained in this document represents components of the legal health record. It is not the complete legal health record.[facility]
--- OUTSIDE RECORDS SUMMARY | 2024-10-05 08:20 | XMS_ITS | Clinical Summary ---
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 022 Active folic acid (FOLVITE) 1 mg tablet [...] Migraine headache 03/29/2014 Asthma, mild intermittent 12/16/2012 Immunizations Name Administration Dates Next Due Influenza Quadravalent, 0.5ml (Fluad) 65yo and o lder 12/16/2019 Influenza Quadrivalent, 0.5m l, preservative free (Fluarix; FluLaval; Fluzone) ages 6mo and older (Afluria) 3yo and older 04/08/2021,12/16/2019 Influenza trivalent, 0.5mL, preservative free (Fluarix; FluLaval; Fluzone) ages 6mo and older (Afluria) 3 years and older 12/16/2012 Influenza, Intradermal, Quad rivalent, Preservative Free, Injectable 12/16/2012 PPD Test 04/09/2020,03/06/2015 Pfizer SARS-CoV-2 COVID-19, mRNA, LNP-S, preservative free 12/07/2020,11/07/2020 Pneumococcal polysaccharide 23 valent (Pneumovax 23) 2yo and older 07/22/2016 Td Tetanus diptheria (Tdvax) 7yo and older 04/05 Tdap Tetanus diptheria acell ular pertussis (Boostrix; Adacel) 7yo and older 10/27/2022 Surgical History Surgery Date Site/Laterality Comments TUBAL LIGATION PROCEDURE: HISTORICAL TUBAL LIGATION Medical History Medical History Date Comments Stroke due to embolism ([facility] V24, [facility] V28) DX:Stroke due to embolism ([facility]); [...] Depression Screening 02/23/2024 Influenza Vaccine (#1) 2024 , 12/16/2019, 12/16/2019, Additional history exists Breast Cancer Screening 02/09/2026 02/10/20, 01/28/2024, 11/13/2022 Cholesterol Screening (Lipid Panel) 10/28/2027 [...] Procedure Name Priority Date/Time Associated Diagnosis Comments HPV WITH REFLEX GENOTYPE Routine 06/23/2024 1:43 PM EDT Encounter for well woman exam with routine gynecological exam Screening for cervical cancer MG MAMMO DIGITAL DIAGNOSTIC BILAT Routine 02/10/2024 2:29 PM EST LIPID PANEL Routine 10/27/2022 HIV SCREENING Routine 03/03/2022 from Last 3 Months or Most Recently Relevant to Health Maintenance Results * HPV with reflex genotype (06/23/2024 1:43 PM EDT) HPV Negative Negative LAB MICROBIOLOGY METHOD 06/26/2024 3:58 PM EDT [facility] Brushing/Spatula Cervix uteri structure / Unknown 06/23/2024 1:43 PM EDT 06/26/2024 6:27 AM EDT [facility] LAB MOLECULAR DIAGNOSTICS ORD ERABLES Final Result [facility] [address] [place] [address], * MG Mammo Digital Diagnostic bilat (02/10/2024 2:29 PM EST) Anatomical Region Laterality Modality Breast Bilateral Mammography Historical Provider IMG BI PROCEDURES Final R esult * Lipid panel (10/27/2022) Triglycerides 0 mg/dL Comment:No interpretation, a bstracted Cholesterol 0 mg/dL Comment:No interpretation, a bstracted HDL 0 mg/dL Comment:No interpretation, a bstracted LDL Cholesterol 0 mg/dL Comment:No interpretation, a bstracted Blood Venous blood specimen / Unknown Historical Provider LAB BLOOD ORDERABLES Alis l Result * HIV Screening (03/03/2022) HIV Screening Abstracted us Historical Provider HEALTH MAINTENANCE Final Result from Last 3 Months or Most Recently Relevant to Health Maintenance Insurance [employer] MED[employer] ADVANTAGE Advance Directives Documents on File Type Date Recorded Patient Manager Generation Expl anation Health Care Decision (hx) 03/21/2016 AD LENNON DIRECTIVE Health Care Decision (hx) 03/21/2016 AD LENNON DIRECTIVE Health Care Decision (hx) 03/21/2016 AD LENNON DIRECTIVE Care Teams Starcher [employer] Tenter Range Feeder Relationship Specialty Start Date End Date Ailyn Velázquez MD [address] [facility] [address] [place] [address] PCP - General 10/07/23
[2024-10-24 11:20] VITALS: BMI 33.4
--- NOTE | 2024-10-26 07:50 | MHC.SHP ---
Pre-Procedural Eval Section A - 24 Hr Update-Section A only Date of Service: 10/26/24 Section B - Complete if H&P > 30 days Chief Complaint: Anemia, rectal bleeding Details of Present Illness: Rash Asthma Allergy Present Medications: see Short Stay Collaborative assessment Allergies: Allergies Allergy/AdvReac Type Severity Reaction Status Date / Time tramadol (TRAMADOL) Allergy Intermediate NAUSEA, Verified 10/24/24 11:17 VOMITING, DIZZINESS Review of Systems Review of Systems Comment: Ten point ROS negative Exam Exam Comment: Gen appear: No acute distress HEENT: no icterus Chest: No overt resp distress Abd: soft, nontender, nondistended Psych: Stable affect, answering questions appropriately Neuro: A/Ox3 noted to move all extremities spontaneously Ext: no peripheral edema Plan Diagnosis/Plan: Unchanged I have reviewed the history and physical and performed a pertinent physical examination on my patient. No changes have occurred unless specified. Time Spent With Patient Time: Total time managing care of this patient today ____ minutes.
[2024-10-26 08:20] VITALS: BP 131/82; PULSE 74; RESP 12; TEMP 36.1; O2SAT 98; BMI 32.3
[2024-10-26 08:22] LABS: UPreg QC Valid YES
[2024-10-26] MEDS: Lactated Ringers 1,000 ML 100 ML IVCONT (08:34)
--- NOTE | 2024-10-26 08:35 | P.CONAN_ITS ---
Documented by User: Gracy Pineda NP 10/25/24 09:24 HPI - Anesthesia Eval Consult details Narrative: 49 yr old female for upper endoscopy and colonoscopy Moderate persistent asthma PMFSH Active Problems Active Problems: All Active Problems (Updated 10/24/24 @ 11:21 by Willa Balderas RN) Bright red rectal bleeding (Acute) Anemia (Acute) Rash (Acute) Allergy (Acute) Asthma (Acute) Past Medical History Medical History Psoriasis Anemia Asthma Surgical History Surgical History (Updated 10/26/24 @ 08:37 by Rosa Lira RN) History of tubal ligation H/O colonoscopy Social History Social History Are you a primary home care consultant to a significant other at home: No Do you presently have visiting nurse or other home services: No Patient Tobacco Use Status: Never used Tobacco Use of substances other than those prescribed or required for medical reasons: No Have you been hit, kicked, punched, or otherwise hurt by someone within the past year? If so, by whom?: No Are you DNR?: No Advance Directives: No Advance Directives Information Provided: Yes Patient : No FDLMP: 10/14/2024 : No Poor oral hygiene: No Meds Allergies Allergy/AdvReac Type Severity Reaction Status Date / Time tramadol (TRAMADOL) Allergy Intermediate NAUSEA, Verified 10/26/24 08:13 VOMITING, DIZZINESS Home Medications ?Medication ?Instructions ?Recorded ?Confirmed ?Last Taken ?Type betamethasone dipropionate 0.05 % 1 appl topical DAILY 05/17/23 10/24/24 Unknown History topical cream Exam Height,Weight and Vital Signs: Height 5 ft 5 in Weight 91 kg Pertinent Lab Results Pertinent Lab Results: Laboratory Tests 09/18/24 14:21 WBC 7.3 Hgb 10.2 L Hct 33.9 L Plt Count 401 H Documented by User: Eri Ramires DO 10/26/24 08:37 [facility] Past Medical History Medical History Psoriasis Anemia Asthma Family History Family history of problems with anesthesia: No Surgical History Surgical History (Updated 10/26/24 @ 08:37 by Rosa Lira RN) History of tubal ligation H/O colonoscopy History of Problems with Anesthesia: No Social History Social History Are you a primary home care consultant to a significant other at home: No Do you presently have visiting nurse or other home services: No Patient Tobacco Use Status: Never used Tobacco Use of substances other than those prescribed or required for medical reasons: No Have you been hit, kicked, punched, or otherwise hurt by someone within the past year? If so, by whom?: No Are you DNR?: No Advance Directives: No Advance Directives Information Provided: Yes Patient : No FDLMP: 10/14/2024 : No Poor oral hygiene: No Meds Allergies Allergy/AdvReac Type Severity Reaction Status Date / Time tramadol (TRAMADOL) Allergy Intermediate NAUSEA, Verified 10/26/24 08:13 VOMITING, DIZZINESS Home Medications ?Medication ?Instructions ?Recorded ?Confirmed ?Last Taken ?Type betamethasone dipropionate 0.05 % 1 appl topical DAILY 05/17/23 10/24/24 Unknown History topical cream Exam Exam Date and Time: 10/26/24 0835 Height,Weight and Vital Signs: Height 5 ft 5 in Weight 91 kg Vital Signs Temperature 97.0 F 10/26/24 08:20 Pulse Rate 74 10/26/24 08:20 Respiratory Rate 12 10/26/24 08:20 Blood Pressure 131/82 10/26/24 08:20 Pulse Oximetry 98 10/26/24 08:20 Oxygen Delivery Method Room Air 10/26/24 08:20 Temperature 97.0 F 10/26/24 08:20 Pulse Rate 74 10/26/24 08:20 Respiratory Rate 12 10/26/24 08:20 Blood Pressure 131/82 10/26/24 08:20 Pulse Oximetry 98 10/26/24 08:20 Oxygen Delivery Method Room Air 10/26/24 08:20 Airway Mallampati Class: III TM Dist: >3cm Neck ROM: Full Heart: S1S2 Lungs: CTAB Other: Braces in place Assessment and Plan Assessment Anesthesia Assessment: Anesthesia Plan Discussed and Chart Reviewed Final Anesthetic Review Family History of Problems with Anesthesia: No History of Problems with Anesthesia: No NPO: Yes ASA Class: II Final Preanesthetic Review: No Changes in Pt Med Stat, Meds/Allgs Chart Reviewed, Consent Obtained/Reviewed and Anes Risks/Benef Reviewed Patient Risk: Low Procedure Risk: Low Anesthetic Plan Anesthetic Plan: MAC: and Agree w/ Assess. and Plan Disposition: Standard PACU
--- NOTE | 2024-10-26 10:10 | P.OPN-COLO_ITS ---
Colonoscopy Operative Note Operative Note Date of Service: 10/26/24 Narrative: Procedure: Upper endoscopy and colonoscopy Indication: Anemia, rectal bleeding Endoscopist: Shalonda Harden MD Anesthesia Provider: Janine Laboy CRNA Anesthesia type: MAC Instrument: [id number] and [id number] EGD Procedure:?? The procedure, indications, preparation and potential complications were reviewed with the patient, who indicated understanding and gave written informed consent to proceed. The endoscope was introduced through the mouth, and advanced to the 2nd part of the duodenum. The mucosa was carefully examined on slow withdrawal of the endoscope. The patient tolerated the procedure well. There were no immediate complications.? EGD Findings:? * Esophagus:? Normal esophageal mucosa was noted. The Z-line was at 35 cm. * Stomach:? Mild erythema and scant heme in the body of the stomach. R etroflexion was performed in the cardia. Random cold forceps biopsies were taken from the stomach. * Duodenum:? Normal duodenal mucosa. Cold forceps biopsies were taken from the duodenal bulb and 2nd portion of the duodenum to rule out celiac sprue. Colonoscopy Procedure:? The patient was then turned for the colonoscopy. A digital rectal exam was p erformed which was abnormal for large external hemorrhoids.? A distal attachment cap was affixed to the tip of the scope and the colonoscope was then inserted through the anus and advanced through the colon and advanced to the cecum at 75 cm and terminal ileum.? Appendiceal orifice and ileocecal valve were identified. Mucosa was carefully examined under high definition white light as the instrumen t was slowly withdrawn in a retrograde panoramic fashion. Retroflexion was performed in rectum. The procedure was not difficult. The quality of the prep was BBPS: 3+2+3 = adequate Withdrawal time 6 minutes Limitations: No limitations Findings: Mucosa: Normal colon and terminal ileum mucosa. Protruding lesions: * Larg internal hemorrhoids with stigmata of recent bleeding. Impression: 1. Normal esophagus 2. Gastritis (biopsy) 3. Normal duodenum (biopsy) 4. Normal colon and terminal ileum mucosa 5. Large internal and external hemorrhoids Recommendations:?? * Follow-up path results * Avoid NSAIDs * Start omeprazole 20 mg once daily x 8- 12 weeks * H Pylori treatment if biopsies + * Start Anusol once daily at bedtime x 14 days * Surgical referral * Repeat colonoscopy for CRC screening in 10 years.
[2024-10-26 10:19] VITALS: BP 100/53; PULSE 68; RESP 14; TEMP 36.2; O2SAT 98
[2024-10-26 10:34] VITALS: BP 122/65; PULSE 64; RESP 16; TEMP 36.1; O2SAT 100
== END 2024-10-26 11:31 | disposition home or self-care (01) ==
PROVIDERS: Nurse Practitioner; PCP Internal Medicine; Visit Provider Internal Medicine
PROC: (CPT 45378; principal; 2024-10-26 09:10)
DX: K92.1 Melena (principal); K64.8 Other hemorrhoids; K64.4 Residual hemorrhoidal skin tags; D64.9 Anemia, unspecified; K29.60 Other gastritis without bleeding; J45.909 Unspecified asthma, uncomplicated
CPT/HCPCS: 45378; 43239; 81025; 88305; 88342; J2003; J2250; J2704

== ENCOUNTER → 2024-10-26 07:17 | Outpatient (BNV) | payer OTHER, SELFPAY | PROVIDERS: PCP Internal Medicine; Visit Provider Internal Medicine | DX: D64.9 Anemia, unspecified (principal); K29.70 Gastritis, unspecified, without bleeding; K62.5 Hemorrhage of anus and rectum; K64.8 Other hemorrhoids | CPT/HCPCS: 43239; 45378 ==

== ENCOUNTER 2024-11-30 14:08 | Outpatient (AMB) | payer OTHER, SELFPAY ==
[2024-11-30 14:22] VITALS: BP 144/77; PULSE 68; BMI 32.8
--- NOTE | 2024-11-30 14:22 | A.OFFVIS_ITS ---
Vital Signs 11/30/24 14:22 Height 5 ft 5 in Weight 197 lb 2 oz BMI 32.8 BP 144/77 H Blood Pressure Location Rt brachial Position Sitting Pulse 68 Intake Visit Reasons: hemorrhoids Intake Note: This patient presents for an assessment for hemorrhoids. Pt c/o; occasional rectal bleeding, reports had an episode for one month where she noticed some blood clots, occasional constipation. 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 She says she knows she has had hemorrhoids for many years. She describes having periodic passage of bright blood from her hemorrhoids. However, the past few months, she has been noticing with the bleeding is more frequent and much have heavier.. This has has been bothering her a lot more. She describes occasional constipation. [facility] Medical History Bleeding hemorrhoids Psoriasis Anemia Asthma Surgical History History of tubal ligation H/O colonoscopy Social History Are you a primary insurance healthcare consultant to a significant other at home: No Do you presently have visiting nurse or other home services: No Patient Tobacco Use Status: Never used Tobacco Review of Systems Const Denies chills and Denies fever(s) Card Denies chest pain, Denies dyspnea and Denies dyspnea on exertion Resp Denies cough, Denies dyspnea and Denies dyspnea on exertion GI Reports hematochezia and Denies change in bowel habits Denies hematuria Musc Denies back pain and Denies limited range of motion Neuro Denies focal weakness and Denies convulsions Psych Denies depression and Denies mood swings Physical Exam Vital Signs: Last Vital Signs Pulse 68 11/30/24 14:22 BP 144/77 H 11/30/24 14:22 BMI result Body Mass Index 32.8 Const General: comfortable and no acute distress Orientation/consciousness: patient oriented x3 Neck Neck: Yes no lymphadenopathy Resp Auscultation: clear to auscultation bilaterally Cardio Rhythm: regular rhythm GI Other: Rectal exam shows large external hemorrhoids with prolapse of internal component Palpation (GI): Soft to palpation, nontender and no guarding Neuro General: patient oriented x3 Office Procedures Anoscopy She was in kneeling katarina-knife position. The anoscope was gently inserted. A full examination of the entire anal canal was done. She had large mixed internal and external hemorrhoidal columns anterior and posterior. I did not see any other lesions. I did not see any fissures or ulceration. There was no bleeding on examination. There was no induration on digital exam [id number] Assessment & Plan Assessment & Plan (1) Bleeding hemorrhoids: Code(s): K64.9 - Unspecified hemorrhoids Category: Medical Plan: She has large internal external hemorrhoids and she complains of more frequent and heavy bleeding. I explained to her the option of proceeding with hemorrhoidectomy. I explained the technique of exam under anesthesia and hemorrhoidectomy. I reviewed the risks including but not limited to bleeding, infections, postop pain, sphincter dysfunction, as well as the benefits and alternatives. I also reviewed with her what to expect postoperatively She understands and wants to proceed. Coding Level of Care Code New Pt Level 3 (65770) Diagnoses Bleeding hemorrhoids K64.9 CPT Codes Details - CPT: 10171-[id number] ([id number])
== END 2024-11-30 14:39 | disposition home or self-care (01) ==
LOC: HO.HGS 14:09
PROVIDERS: PCP Internal Medicine; Visit Provider Surgery
DX: K64.9 Unspecified hemorrhoids (principal)
CPT/HCPCS: 46600; 99203

== ENCOUNTER → 2024-11-30 14:08 | Outpatient (BNVA) | payer OTHER, SELFPAY | PROVIDERS: PCP Internal Medicine; Visit Provider Surgery | DX: K64.9 Unspecified hemorrhoids (principal) | CPT/HCPCS: 46600; 99202 ==

== ENCOUNTER 2024-12-02 11:18 | Emergency (ER) | payer OTHER, SELFPAY ==
--- NOTE | ~2024-12-02 | MR_ITS ---
CLINICAL HISTORY: Left facial numbness PATIENT WITH BRACES ON TEETH MR brain without contrast. COMPARISON: CT head dated 12/02/24 at 11:58 EDT FINDINGS: Artifact from dental implants moderately limits evaluation of several sequences particularly along the anterior brain. No abnormal diffusion restriction in the brain parenchyma or extra-axial spaces. No evidence of mass, mass effect or midline shift. No intracranial hemorrhage or abnormal extra-axial fluid collection. No evidence of hydrocephalus. The basilar cisterns are patent. Cerebellar hemispheres and cerebellar vermis are normal. Fourth ventricle is normal. Small focus of increased T2/FLAIR signal within the gold radiata white matter often representing mild white-matter small-vessel disease. No brainstem abnormality is identified. Intracranial flow voids are patent. The visualized paranasal sinuses and mastoid air-cells are clear. IMPRESSION: 1. Artifact from dental implants limits evaluation of several sequences. Within limits of study, no acute intracranial findings. This document has been electronically signed by: Joo Bocanegra MD on 12/02/2024 16:24:13
--- NOTE | ~2024-12-02 | CT_ITS ---
CLINICAL HISTORY: tingling to L face and L arm CT head without contrast Comparison: None provided Findings: No intra-axial mass, midline shift, hydrocephalus, or acute hemorrhage. No significant atrophy-like change or white matter disease. There is no sinus or mastoid fluid. The orbits are unremarkable. No skull fracture. IMPRESSION: 1. No acute intracranial findings. If patient continues to have persistent or worsening symptoms, MRI should be considered for further evaluation. This document has been electronically signed by: Elliot So MD on 12/02/2024 12:48:55
[2024-12-02 11:20] VITALS: BP 156/86; PULSE 69; RESP 18; TEMP 36.1; O2SAT 100; BMI 32.9
--- NOTE | 2024-12-02 11:21 | ED.GENADULT ---
HPI - General Adult General Chief complaint: Neuro Symptoms/Deficit Stated complaint: facial and arm pain Time Seen by Provider: 12/02/24 12:00 Source: patient and family Mode of arrival: ambulatory Limitations: no limitations History of Present Illness ED Provider: DR. Owens HPI narrative: 49-year-old female presented with left facial and left shoulder numbness with tingling started since yesterday (greater than 12 hours ago), also complaining of severe pain of the left side of the face, no upper extremities weakness, no speech problem, patient was seen and evaluated at [facility] for chest pain had a negative echocardiogram as per patient. No chest pain, no shortness of breath, no fever, no chills, no new weakness, no speech changes. Related Data Home Medications ?Medication ?Instructions ?Recorded ?Confirmed betamethasone dipropionate 0.05 % 1 appl topical DAILY 05/17/23 10/24/24 topical cream loratadine 10 mg tablet 10 mg PO DAILY 11/30/24 Previous Rx's ?Medication ?Instructions ?Recorded acetaminophen 500 mg tablet 500 mg PO Q6H PRN fever or pain 04/15/23 #20 tabs famotidine 20 mg tablet (Pepcid AC) 20 mg PO DAILY #30 tabs 03/31/24 hydroxyzine HCl 25 mg tablet 50 mg (2 x 25 mg) PO TID PRN 03/31/24 itching #20 tabs albuterol sulfate 90 mcg/actuation 2 inh inhalation Q6H PRN shortness 04/11/24 aerosol inhaler of breath or wheezing 30 days #18 grams budesonide-formoterol HFA 160 2 puff inhalation BID 30 days 04/11/24 mcg-4.5 mcg/actuation aerosol #10.2 grams inhaler (Symbicort) hydrocortisone 1 %-pramoxine 1 % 1 appl AR BEDTIME PRN hemorrhoids 05/12/24 rectal foam (Proctofoam HC) #10 grams ondansetron 4 mg disintegrating 4 mg PO Q8H PRN nausea and 05/12/24 tablet vomiting #7 tabs montelukast 10 mg tablet 10 mg PO BEDTIME 30 days #30 tabs 06/13/24 (Singulair) hydrocortisone 2.5 % topical cream 1 appl AR BEDTIME 14 days #30 grams 10/26/24 with perineal applicator (Anusol-HC) omeprazole 20 mg capsule,delayed 20 mg PO DAILY Gastritis #90 caps 10/26/24 release Allergies Allergy/AdvReac Type Severity Reaction Status Date / Time tramadol (TRAMADOL) Allergy Intermediate NAUSEA, Verified 12/02/24 11:25 VOMITING, DIZZINESS Review of Systems Review of Systems: All other systems are reviewed and are negative Constitutional: Reports as per HPI and Reports no additional constitutional complaints Eyes: Reports as per HPI and Reports no additional eye complaints Reports system reviewed and no additional complaints, except as documented Cardiovascular: Reports as per HPI and Reports no additional cardiovascular complaints Respiratory: Reports as per HPI and Reports no additional respiratory complaints Gastrointestinal: Reports as per HPI and Reports no additional gastrointestinal complaints Genitourinary: Reports no additional female genitourinary complaints Musculoskeletal: Reports no additional musculoskeletal complaints Skin/Breast: Reports system reviewed and no additional complaints, except as docu Psychiatric: Reports no additional psychiatric complaints Endocrine: Reports no additional endocrine complaints Hematologic/Lymphatic: Reports no additional hematologic/lymphatic complaints Allergic/Immunologic: Reports no additional allergic/immunologic complaints Reports system reviewed and no additional complaints, except as documented and Reports Abnormal speech present [facility] Past Medical History Medical History Bleeding hemorrhoids Psoriasis Anemia Asthma Surgical History History of tubal ligation H/O colonoscopy Social History Social History Are you a primary residential care facility manager to a significant other at home: No Do you presently have visiting nurse or other home services: No Patient Tobacco Use Status: Never used Tobacco Smoked in Last 30 Days: No Use of substances other than those prescribed or required for medical reasons: No Advance Directives: No Advance Directives Information Provided: No Do you have a plan to hurt others: No Plan Physical Exam ED Vital Signs: Vital Signs - 24 hr 12/02/24 11:20 12/02/24 14:30 12/02/24 16:04 Temperature 97 F Pulse Rate 69 59 61 Respiratory Rate 18 18 18 Blood Pressure 156/86 H 137/80 146/77 H Pulse Oximetry 100 100 99 Oxygen Delivery Method Room Air Room Air BMI result Body Mass Index 32.9 Vital signs have been reviewed and appear to be correct. Blood pressure elevated. Heart rate normal. Respiratory rate normal. Temperature normal. Oxygen saturation normal. Appearance: Alert. Oriented X3. No acute distress. Head: Normal external exam. Normocephalic. Atraumatic. No Alarcon signs noted. No raccoon eyes noted Eyes: PERRLA. EOMI. Conjunctiva and sclera normal. Eyelids normal. ENT: TM's Normal. Pharynx normal. Uvula midline. Moist mucous membranes. No trismus noted. No drooling noted. No muffled voice noted. Neck: Normal inspection. Neck supple. FROM. No adenopathy. Thyroid Normal. No meningeal signs. No neck mass noted. CVS: Normal heart rate and rhythm. Heart sound normal. No murmurs noted. Pulses normal throughout. Respiratory: No respiratory distress. Painless inspiration. Breath sounds normal. No wheezes/rales/rhonchi noted. Chest nontender. No accessory muscle usage noted or decreased air movement noted. Abdomen: Soft and nontender. Bowel sounds normal in all 4 quadrants. No distention noted. No organomegaly noted. No visible injury noted. Back: No CVA tenderness. Full range of motion noted. Skin: Skin warm and dry. Normal skin color. Normal skin turgor. No rashes/lesions/lacerations noted. Extremities: No lower extremity edema. Extremities exhibit normal range of motion. Extremities nontender. Neuro: Mental status: Normal attention, orientation, memory, and affect. Cranial nerves: Pupils are equal, round and reactive to light, EOMI, visual mccall are fall, face is symmetric, facial sensations are normal. Motor examination normal muscle tone, strength to 4 extremities. DTR are +2, planter's are flexor. Sensory exam; normal coordination, no ataxia, gait stable. Cerebellar exam: Onqbuz-zl-yqgz and umyv-ch-ovlt is normal. Extrapyramidal system: No tremors, no rigidity with normal facial expressions. Pronator drift not present NIH Stroke Scale Internal: Initial- Upon Arrival Time: 11:26 Level of Consciousness: Alert Level of Consciousness Questions: Answers both questions correctly Level of Consciousness Commands: Performs both tasks correctly Best Gaze: Normal Visual: No visual loss Facial Palsy: Normal Motor Arm (Right): No drift Motor Arm (Left): No drift Motor Leg (Right): No drift Motor Leg (Left): No drift Limb Ataxia: Absent Sensory: Normal Best Language: No aphasia Dysarthia: Normal Extinction and Inattention: No abnormality Score: 0 Course Course Course Narrative: This is a Rapid Medical Examination (RME) performed by Terrence Romero PA-C in triage. Full HPI, ROS, assessment and treatment plan per primary provider in the Main ED. 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 no falls/head strike. reports outpatient echo yesterday at [facility]. chest pain yesterday which has resolved. PE/vitals: NIH 0. no facial droop, slurred speech, pronator drift. ambulating w/ steady gait. Plan: labs, UA, CT, ekg Reevaluation(s) Reevaluation #1: Left facial/left shoulder pain and numbness, MRI is showing artifact from a dental filling however no gross abnormality on the MRI no suggestion of acute stroke, patient's symptoms started more than 24 hours ago no further intervention will be needed at this point. Pain is controlled with IV Tylenol. Time: 16:44 Medications Administered Discontinued Medications Generic Name Dose Route Start Last Admin Trade Name Freq PRN Reason Stop Dose Admin Acetaminophen 1,000 mg in 100 mls @ 400 mls/hr 12/02/24 16:40 12/02/24 16:43 Ofirmev IV 12/02/24 16:54 400 mls/hr ONCE ONE Administration Medical Decision Making Differential Diagnosis Differential Diagnoses: The differential diagnosis associated with the presentation includes (Ischemic stroke, hemorrhagic stroke, electrolyte derangement, left facial pain.) Admission/Observation Consideration of admission/observation: Escalation of care including admission/observation considered Lab Data MDM Lab Attestation statement: I reviewed the patient's lab results. 12/02/24 11:39 12/02/24 11:39 Labs: Lab Results 12/02/24 12/02/24 Range/Units 11:39 17:32 WBC 8.5 (4.8-10.8) X10*3/uL RBC 4.55 (4.20-5.50) X10*6/uL Hgb 10.6 L (12.0-16.0) g/dl Hct 35.4 L (37.0-47.0) % MCV 77.8 L (80.0-98.0) fL MCH 23.3 L (27.0-33.0) pg MCHC 29.9 L (31.0-35.0) g/dl RDW 15.6 (11.0-16.0) % Plt Count 430 H (160-400) X10*3/uL MPV 11.0 (9.4-12.3) fL Immature Gran % (Auto) 0.4 (0.0-0.4) % Neut % (Auto) 61.5 (45-73) % Lymph % (Auto) 28.8 (20-40) % [place] % (Auto) 6.4 (2-11) % Eos % (Auto) 2.2 (0-4) % Baso % (Auto) 0.7 (0-2) % Lymph # (Auto) 2.5 (1.2-4.9) X10*3/uL [place] # (Auto) 0.6 (0.1-1.2) X10*3/uL Eos # (Auto) 0.2 (0.0-0.4) X10*3/uL Baso # (Auto) 0.1 (0.0-0.2) X10*3/uL Abs Immat Gran (auto) 0.03 (0.00-0.03) X10*3/uL Absolute Neuts (auto) 5.2 (2.0-8.3) x10*3/uL Absolute Nucleated RBC 0.000 (0.0-0.012) X10*3/uL Nucleated RBC % (auto) 0.0 (0.0-0.2) /100WBC Sodium 139 (135-145) mmol/L Potassium 4.7 (3.3-5.1) mmol/L Chloride 108 (96-108) mmol/L Carbon Dioxide 26 (22-29) mmol/L Anion Gap 10 L (12-20) BUN 14 (9-16) mg/dL Creatinine 0.63 (0.5-1.4) mg/dL Estim Creat Clear Calc 122.1 Estimated GFR > 60 Random Glucose 94 (60-115) mg/dL Calcium 8.9 (8.4-10.2) mg/dL Magnesium 1.8 (1.6-2.6) mg/dL Total Bilirubin 0.3 (0.0-1.0) mg/dL AST 20 (5-31) U/L ALT 19 (0-31) U/L Alkaline Phosphatase 73 (39-117) U/L Troponin I High Sens < 2.7 (<3.5-17.0) ng/L Total Protein 7.2 (6.5-8.0) g/dL Albumin 4.3 (3.5-5.0) g/dL Lipase 17 (8-78) U/L Urine Color Yellow Urine Appearance Clear Urine pH 7.0 (5.0-9.0) Ur Specific [place] 1.020 (1.005-1.025) Urine Protein Negative (Neg-Trace) mg/dL Urine Glucose (UA) Negative (Negative) mg/dL Urine Ketones Negative (Negative) mg/dL Urine Blood Negative (Negative) Urine Nitrite Negative (Negative) Ur Leukocyte Esterase Negative (Negative) Independent Interpretation I performed an independent interpretation of an: CT Scan (Head:1. No acute intracranial findings. If patient continues to have persistent or worsening symptoms, MRI should be considered for further evaluation.) and MRI (Brain:1. Artifact from dental implants limits evaluation of several sequences. Within limits of study, no acute intracranial findings.) Radiology Impression Discussion of test interpretation with radiology: I have reviewed the radiologist's reading. Discharge Plan Discharge Clinical Impression: Paresthesia Patient Disposition: Home, Self-Care Instructions: Paresthesia (ED) Prescriptions: No Action montelukast [Singulair] 10 mg tablet 10 mg PO BEDTIME 30 Days Qty: 30 11RF acetaminophen 500 mg tablet 500 mg PO Q6H PRN (Reason: fever or pain) Qty: 20 0RF hydroxyzine HCl 25 mg tablet 50 mg PO TID PRN (Reason: itching) Qty: 20 0RF famotidine [Pepcid AC] 20 mg tablet 20 mg PO DAILY Qty: 30 0RF hydrocortisone [Anusol-HC] 2.5 % cream with perineal applicator 1 appl AR BEDTIME 14 Days Qty: 30 0RF omeprazole 20 mg capsule,delayed release(DR/EC) 20 mg PO DAILY Qty: 90 0RF Proctofoam HC 1-1 % foam 1 appl AR BEDTIME PRN (Reason: hemorrhoids) Qty: 10 0RF ondansetron 4 mg tablet,disintegrating 4 mg PO Q8H PRN (Reason: nausea and vomiting) Qty: 7 0RF betamethasone dipropionate 0.05 % cream 1 appl topical DAILY budesonide-formoterol [Symbicort] 160-4.5 mcg/actuation HFA aerosol inhaler 2 puff inhalation BID 30 Days Qty: 10.2 11RF albuterol sulfate 90 mcg/actuation HFA aerosol inhaler 2 inh inhalation Q6H PRN (Reason: shortness of breath or wheezing) 30 Days Qty: 18 12RF loratadine 10 mg tablet 10 mg PO DAILY Referrals: Ailyn Velázquez MD [Primary Care Provider, Internal Medicine] Print Language: Arabic
--- NOTE | 2024-12-02 11:24 | ECG_ITS ---
Test Reason : NUMBNESS Blood Pressure : */* mmHG Vent. Rate : 62 BPM Atrial Rate : 62 BPM P-R Int : 174 ms QRS Dur : 84 ms QT Int : 390 ms P-R-T Axes : 24 34 31 degrees QTcB Int : 395 ms Normal sinus rhythm Normal ECG When compared with ECG of 04-Jan-2017 08:59, No significant change was found Referred By: Abby Romero Electronically Signed By: STEPHANIE DURAND MD
--- OUTSIDE RECORDS SUMMARY | 2024-12-02 11:42 | XMS_ITS | Encounter Summary ---
Author Organization [facility] Address [address] [place] [address] Phone Care Team Providers Care Relay Checker Name Role Phone Abi Nikhil MARTINEZ Primary Care Provider [phone] Encounter Details Date Type Department Care Team (Late st Contact Info) Description 11/20/2024 Procedure Pass [facility] Emergency Imaging, [address], [address] 1 [place] [address] Social History Tobacco Use Types Packs/Day Years Used Date Smoking Tobacco: Never Alcohol Use Standard Drinks/Week Comments Never 0 [...] as of this encounter Plan of Treatment Not on file documented as of this encounter Visit Diagnoses Not on filedocumented in this encounter Care Teams Relay Checker Relationship Specialty Start Date End Date Nikhil Alex FNP [address] [place] [address] PCP - General Nurse Practitioner 05/02/23 documented as of this encounter Additional Source Comments The information contained in this document represents components of the legal health record. It is not the complete legal health record.[facility]
--- OUTSIDE RECORDS SUMMARY | 2024-12-02 11:42 | XMS_ITS | Encounter Summary ---
Author Organization [facility] Address [address] [place] [address] Phone Care Team Providers Care Bearing Grinder Name Role Phone Abi Nikhil MARTINEZ Primary Care Provider [phone] Encounter Details Date Type Department Care Team (Late st Contact Info) Description 11/20/2024 Procedure Pass [facility] Emergency Imaging, [address] [place] [address] Social History Tobacco Use Types Packs/Day Years [...] on filedocumented in this encounter Care Teams Bearing Grinder Relationship Specialty Start Date End Date Nikhil Alex FNP [address] [place] [address] PCP - General Nurse Practitioner 05/02/23 documented as of this encounter Additional Source Comments The information contained in this document represents components of the legal health record. It is not the complete legal health record.[facility]
--- OUTSIDE RECORDS SUMMARY | 2024-12-02 11:42 | XMS_ITS | Clinical Summary ---
Author Organization [employer] Address [address] [facility] 7t [place] [address] Care Team Providers Care Certified Prosthetist/Orthotist Name Role Phone Unavailable Primary Care Provider Unavailabl e Encounters Date Type Department Care Team Description 10/26/2024 Orders Only GENERIC EXTERNAL DATA DEPARTMENT Provider, Generic External Data from Last 3 Months Social History Tobacco Use Types Packs/Day Years Used Date Smoking Tobacco: Never Assessed Comments Unknown Sex and Gender Information Value Date Recorded Sex Assigned at Female 12/22/2021 10:31 AM EDT Legal Sex Female 10:31 AM EDT Gender Identity Not on file Sexual Orientation Not on file Plan of Treatment Health Maintenance Due Date Last Done Comments CT Colonography 1977 Colonoscopy 1977 Colorectal Cancer Screening 1977 Depression Screening 1977 FIT DNA/Cologuard 1977 FIT 1977 FOBT 1977 Sigmoidoscopy 1977 Disability Screening 1977 Alcohol/Substance Use Screening 1989 Tobacco Screening 1989 Family Planning (PISQ) 1992 Hepatitis B Vaccines (1 of 3 - 19+ 3-dose series) 1996 Pap Smear 1998 Cervical Cancer Screening 08/06/2007 HPV/Cotest 08/06/2007 COVID-19 Vaccine (3 - 2024-2 6 season) 2024 12/07/2020, 11/07/2020 Influenza Vaccine (#1) 2024 , 12/16/2019, 12/16/2012 Mammogram 02/09/2026 02/10/2024 Zoster Vaccines (1 of 2) 08/06/2027 DTaP/Tdap/Td Vaccines (2 - T d or Tdap) 10/27/2032 10/27/2022, 04/05/2017 RSV Patients and Patients Aged 60 years or older (1 - 1-dose 75+ series) 2052 Pneumococcal Vaccine: Pediatrics (0 to 5 Years) and At-Risk Patients (6 to 49) Years Aged Out 07/22/2016 No longer eligible b ased on patient's age to complete this topic HIB Vaccines Aged Out No longer eligi [...] patient's age to complete this topic Meningococcal Vaccine Aged Out No brandon darlene eligible based on patient's age to complete this topic RSV under 20 months Aged Out No longe r eligible based on patient's age to complete this topic Rotavirus Vaccines Aged Out No longer eligible based on patient's age to complete this topic Procedures Procedure Name Priority Date/Time Associated Diagnosis Comments HCG, QL, URINE Routine 10/26/2024 8:05 AM EDT from Last 3 Months Results * HCG, Qualitative, Urine (10/26/2024 8:05 AM EDT) Urine NEGATIVE NEGATIVE [facility] Comment:This test was develo ped to detect early . Falsenegative results may occur after the 5th - 7th week ofpregnancy when using this test method. If clinicallyindicated, consider a serum hCG. 10/26/2024 8:05 AM EDT 10/26/2024 8:16 AM EDT us Generic External Data Provider LAB URINE ORDERAB LES Final Result [facility] [address] [place] [phone] from Last 3 Months
--- OUTSIDE RECORDS SUMMARY | 2024-12-02 11:42 | XMS_ITS | Encounter Summary ---
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
--- OUTSIDE RECORDS SUMMARY | 2024-12-02 11:42 | XMS_ITS | Encounter Summary ---
Author Organization [facility] Address [address] [place] [address] Phone Care Team Providers Care Technical Sourcing Recruiter Name Role Phone Abi Nikhil MARTINEZ Primary Care Provider [phone] Encounter Details Date Type Department Care Team (Late st Contact Info) Description 11/20/2024 Procedure Pass [facility] Emergency Imaging, [address] 1 [place] [address] Social History Tobacco Use Types Packs/Day Years [...] on filedocumented in this encounter Care Teams Technical Sourcing Recruiter Relationship Specialty Start Date End Date Nikhil Alex FNP [address] [place] [address] PCP - General Nurse Practitioner 05/02/23 documented as of this encounter Additional Source Comments The information contained in this document represents components of the legal health record. It is not the complete legal health record.[facility]
--- OUTSIDE RECORDS SUMMARY | 2024-12-02 11:43 | XMS_ITS | Clinical Summary ---
Author Organization [facility] Address [address] [place] [address] Phone Care Team Providers Care Waste Minimization Technician Name Role Phone Ailyn Velázquez MD Primary [...] (one) time each day. 06/20/19 22 Active Ventolin HFA 90 mcg/actuation inhaler Inhale [...] each day before breakfast. 12/11/19 24 Active EPINEPHrine (EPIPEN) 0.3 mg/0.3 mL injection ADMINISTER 0.3 MG IN THE MUSCLE 1 TIME Active famotidine (PEPCID) 20 mg tablet Take 1 tablet (20 mg total) by mouth 1 (one) time each day. 03/30/19 25 Active hydrocortisone 2.5 % ointment 05/05/19 25 Active hydroquinone (GERMAN[place]) 4 % cream 05/05/19 25 Active fluconazole (DIFLUCAN) 150 mg tablet Take one tablet today. Repeat the dose if there is no improvement in 3 days. 2 tablet 05/10/19 25 Active terconazole (TERAZOL 7) 0.4 % vaginal cream INSERT 1 APPLICATORFUL VAGINALLY AT BEDTIME FOR 7 DAYS 45 g 06/10/19 25 Active calcipotriene (DOVONEX) 0.005 % cream APPLY TOPICALLY TO THE AFFECTED AREA TWICE DAILY FOR PSORIASIS 05/06/19 25 Active Proctofoam HC rectal foam APPLY 1 APPLICATION AT BEDTIME NEEDED FOR HEMORRHOIDS 05/13/19 25 Active loratadine (CLARITIN) 10 mg tablet 06/23/19 25 Active Premarin vaginal cream INSERT 0.5(1 APPLICATORFUL) INTO THE VAGINA TWICE A WEEK 30 g 10/06/19 25 Active norethindrone (INGRID,PHOEBE,HE ATHER,MICRONOR) 0.35 mg tablet TAKE 1 TABLET BY MOUTH DAILY 28 tablet 12 09/09/19 25 025 Discontinu ed(Formula ry change) tranexamic acid (LYSTEDA) 650 mg tablet tablet Take 2 tablets (1,300 mg total) by mouth 2 (two) times a day for 7 days. 28 each 11/22/19 025 Active Problems Problem Noted Date Diagnosed [...] Encounters Date Type Department Care Team Description 11/21/2024 10:45 AM EDT Office Visit [facility] [address] [place] [phone] Cathy Mckeon CNM Abnormal uterine bleeding (AUB) (Primary Dx) 11/21/2024 Results Follow-Up [facility] [address] [place] [phone] Ashanti Kelley DO 11/16/2024 10:30 AM EDT Office Visit [facility] [address] [place] [phone] Ashanti Kelley DO Abnormal uterine bleeding (Primary Dx) from Last 3 Months Immunizations Immunization Administration Dates Next Due Influenza Quadravalent, 0.5ml (Fluad) 65yo and o lder 12/16/2019 Influenza Quadrivalent, 0.5m l, preservative free (Fluarix; FluLaval; Fluzone) ages 6mo and older (Afluria) 3yo and older 04/08/2021,12/16/2019 Influenza trivalent, 0.5mL, preservative free (Fluarix; FluLaval; Fluzone) ages 6mo and older (Afluria) 3 years and older 12/16/2012 Influenza, Intradermal, Quad rivalent, Preservative Free, Injectable 12/16/2012 PPD Test 04/09/2020,03/06/2015 [employer] SARS-CoV-2 COVID-19, mRNA, LNP-S, preservative free 12/07/2020,11/07/2020 Pneumococcal polysaccharide 23 valent (Pneumovax 23) 2yo and older 07/22/2016 Td Tetanus diptheria (Tdvax) 7yo and older 04/05 Tdap Tetanus diptheria acell ular pertussis (Boostrix; Adacel) 7yo and older 10/27/2022 Surgical History Surgery Date Site/Laterality Comments TUBAL LIGATION PROCEDURE: HISTORICAL TUBAL LIGATION SECTION x4 BELT ABDOMINOPLASTY Medical History Medical History Date Comments Stroke due to embolism ([facility] V24, [facility] V28) DX:Stroke due to embolism ([facility]); [...] on file Not on file Obstetrics History * This document contains information received from the source organization and may not represent a complete record from that organization. Para Term AB IAB SAB Ectopic Multiple Livin g Live Births 5 4 4 4 4 Date Outcome GA Total Labor Labor/2nd/3rd Weight Sex Type Anes PTL Cindy A1 A5 Name Clin 1996 Term F CS-Un spec Living 1999 Term F CS-Un spec Living 2002 Term M CS-Un spec Living 2006 Term F CS-Un spec Living Last Filed Vital Signs Vital Sign Reading Time Taken Comments Blood Pressure 122/76 11/21/2024 10:47 AM EDT Pulse 74 11/21/2024 10:47 AM EDT Temperature - - Respiratory Rate 18 11/16/2024 10:26 AM EDT Oxygen Saturation - - Inhaled Oxygen Concentration - - Weight 89 kg (196 lb 3.2 oz) 11/21/2024 10:47 AM EDT Height 165.1 cm (5' 5 ) 11/16/2024 10:26 AM EDT Body Mass Index 32.65 11/16/2024 10:26 AM EDT Plan of Treatment Health Maintenance Due Date Last Done Comments Colorectal Cancer Screening: Colonoscopy 1977 Hepatitis B Vaccines (1 of 3 - 19+ 3-dose series) 1996 Pneumococcal Vaccine: Pediatrics (0 to 5 Years) and At-Risk Patients (6 to 49 Years) (2 of 2 - PCV) 07/22/2017 07/22/2016 COVID-19 Vaccine (3 - Pfizer risk series) 01/04/2021 12/07/2020, 11/07/2020 Social Influencers of Health Screening 01/25/2022 Depression Screening 02/23/2024 Influenza Vaccine (#1) 2024 , 12/16/2019, 12/16/2019, Additional history exists Hypertension/CHF/CAD Annual BMP Blood Test 11/21/2024 10/27/2022, 10/27/2022 Breast Cancer Screening 02/09/2026 02/10/20 24, 01/28/2024, 11/13/2022 Cholesterol Screening (Lipid Panel) 10/28/2027 10/27/2022, 10/27/2022, 10/27/2022, Additional history exists Cervical Cancer Screening: HPV 06/23/2029 06/23/2024, 09/23/2021 DTaP,Tdap,and Td Vaccines (3 - Td or Tdap) 10/27/2032 10/27/2022, 04/05/2017 RSV Immunization Adult Patients (1 - 1-dose 75+ series) 2052 Hepatitis C Screening Completed 01/27/2022 HIV Screening [...] Procedure Name Priority Date/Time Associated Diagnosis Comments TN ENDOMETRIAL SAMPLING W/WO ENDOCERVICAL SAMPLING W/O CERVICAL DILATION Routine 11/16/2024 11:44 AM EDT Abnormal uterine bleeding TISSUE EXAM Routine 11/16/2024 11:02 AM EDT Abnormal uterine bleeding HPV WITH REFLEX GENOTYPE Routine 06/23/2024 1:43 PM EDT Encounter for well woman exam with routine gynecological exam Screening for cervical cancer MG MAMMO DIGITAL DIAGNOSTIC BILAT Routine 02/10/2024 2:29 PM EST ANNUAL BMP BLOOD TEST Routine 10/27/2022 LIPID PANEL Routine 10/27/2022 HIV SCREENING Routine 03/03/2022 from Last 3 Months or Most Recently Relevant to Health Maintenance Results * TN ENDOMETRIAL SAMPLING W/WO ENDOCERVICAL SAMPLING W/O CERVICAL DILATION (11/16/2024 11:44 AM EDT) Ashanti Salazar DO - 11/16/2024 11:44 AM EDT Ashanti Kelley DO 11/16/2024 11:45 AM Endometrial biopsy Indication: abnormal uterine bleeding Date/Time: 11/16/2024 11:44 AM Performed by: Ashanti Kelley DO Authorized by: Ashanti Kelley DO Informed Consent: Relevant images/test results available and reviewed: yes Health status cleared: Yes Procedure/treatment, purpose, treatment alternatives, risks/potential complications and benefits explained: yes Risk/complications/benefits details: Bleeding, discomfort, inadequate sample Patient questions answered: yes Patient agrees, verbalizes understanding, and wants to proceed: yes Consent given by: Patient Informed consent discussion completed by Physician/ANGELO with patient: Written; patient signed and dated; copy to patient, witnessed and verbal Pre-procedure: Uterus size: 6-8 weeks Uterus position: Anteverted Procedure: A speculum was placed into the vagina and the cervix was prepped with: Betadine Cervix stablized: With allis Uterus sounded: no Cervix: normal Number of passes to obtain adequate specimen: 2 Hemostasis achieved with: Applied pressure Patient tolerated procedure well with no complications: yes Comments: Procedure comments: Patient has bleeding for 2-3 weeks for the last 3 months. Prior to this she had regular periods lasting only 3-4 days Ashanti Kelley DO IN CLINIC/BEDSIDE ORDERABLES Final Result * Tissue exam (11/16/2024 11:02 AM EDT) Final Diagnosis Endometrial biopsy: Inactive endometrium No endometrial hyperplasia or neoplasm identified 11/17/2024 10:47 AM EDT [facility] Clinical Information Abnormal uterine bleeding (N93.9) 11/17/2024 10:47 AM EDT [facility] Gross Description A. Endometrium, biopsy: Labeled Endo and EMB on the top of the lid . Received in formalin is a 2.9 x 2.0 x 0.3 cm aggregate of soft, bueno-red tissue fragments and predominating blood clot, which is wrapped in paper and submitted in toto in one cassette, multiple pieces, x 2. TS 11/17/2024 10:47 AM EDT [facility] Disclaimer Unless otherwise specified, all tissue is 10% NB formalin fixed and paraffin embedded. 11/17/2024 10:47 AM EDT [facility] Tissue Endometrial structure / Unknown Non-blood Collection / Unknown 11/16/2024 11:02 AM EDT 11/16/2024 11:02 AM EDT Ashanti Kelley DO LAB PATHOLOGY ORDERABLES Alis l Result Performing Organization Address City/[facility]/ZIP Co de Phone Number [facility] [address] [place] [address], * HPV with reflex genotype (06/23/2024 1:43 PM EDT) Pathologist [facility] HPV Negative Negative LAB MICROBIOLOGY METHOD 06/26/2024 3:58 PM EDT [facility] Brushing/Spatula Cervix uteri structure / Unknown 06/23/2024 1:43 PM EDT 06/26/2024 6:27 AM EDT Cathy Mckeon CNM LAB MOLECULAR DIAGNOSTICS ORD ERABLES Final Result [facility] [address] [place] [address], [place] [phone] * MG Mammo Digital Diagnostic bilat (02/10/2024 2:29 PM EST) Anatomical Region Laterality Modality Breast Bilateral Mammography Historical Provider MD ORTIZ BI PROCEDURES Final R esult * Annual BMP Blood Test (10/27/2022) Pathologist [facility] Annual BMP Blood Test Abstracted Historical Provider HEALTH MAINTENANCE Final Result * Lipid panel (10/27/2022) Triglycerides 0 mg/dL Comment:No interpretation, a bstracted Cholesterol 0 mg/dL Comment:No interpretation, a bstracted HDL 0 mg/dL Comment:No interpretation, a bstracted LDL Cholesterol 0 mg/dL Comment:No interpretation, a bstracted Blood Venous blood specimen / Unknown Historical Provider LAB BLOOD ORDERABLES Alis l Result * Hm HIV Screening (03/03/2022) HIV Screening Abstracted Historical Provider HEALTH MAINTENANCE Final Result from Last 3 Months or Most Recently Relevant to Health Maintenance Insurance [facility] MEDICAID ADVANTAGE [address] [place] [address] Advance Directives Documents on File Type Date Recorded Patient Security Flex Utility Officer Expl anation Health Care Decision (hx) 03/21/2016 AD LENNON DIRECTIVE Health Care Decision (hx) 03/21/2016 AD LENNON DIRECTIVE Health Care Decision (hx) 03/21/2016 AD LENNON DIRECTIVE Care Teams Waste Minimization Technician Relationship Specialty Start Date End Date Ailyn Velázquez MD [address] [facility] [address] [place] [address] PCP - General 10/07/23
--- OUTSIDE RECORDS SUMMARY | 2024-12-02 11:43 | XMS_ITS | Clinical Summary ---
Author Organization [facility] Address [address] [place] [address] Care Team Providers Care Time Signal Wirer Name Role Phone Becky Gutierrez PA-C Primary Care Provider [phone] Source Comments PLEASE NOTE, if this patient [...] OR WHEEZING 18 g 5 4 Active SYMBICORT 160-4.5 mcg/actuation inhalerIndications :Mild intermittent asthma with exacerbation INHALE 2 PUFFS INTO THE LUNGS TWICE DAILY 30.6 g 3 4 Active triamcinolone (KENALOG) 0.1 % ointmentIndication s:Psoriasis APPLY TOPICALLY TO THE AFFECTED AREA EVERY DAY NEEDED FOR PSORIASIS 60 g 1 4 Active omeprazole (PRILOSEC) [address] capsuleIndications :Dyspepsia TAKE 1 CAPSULE BY MOUTH EVERY MORNING BEFORE BREAKFAST 90 Capsule 1 5 Active ibuprofen 800 mg tabletIndications: Neck pain,Primary osteoarthritis involving multiple joints TAKE 1 TABLET BY MOUTH THREE TIMES DAILY NEEDED FOR PAIN 270 Tablet 2 5 Active Active Problems Problem Noted Date [...] 2022 Fecal DNA 2022 Flexible Sigmoidoscopy 2022 Hypertension Screening (#1) 10/27/2023 Annual Wellness (Adult): Indicated (All Coverage) 10/28/2023 10/27/2022, 06/17/2021, 12/27/2019, Additional history exists Breast Cancer Screening (Mammogram) 11/14/2023 11/13/2022, 06/26/2021, 06/26/2021, Additional history exists Alcohol and Drug Screen 02/23/2024 02/24/19 23, 06/17/2021, 11/27/2019, Additional history exists Depression Annual Screen 02/23/2024 023, 10/04/2015, 03/29/2014 (Managed by Outside Provider) Pap Smear 09/23/2024 09/23/2021, 08/0 03/2021, 10/31/2019, Additional history exists Col-ULEDV-97 ( season) 10/23/202412/07/ 021, 11/07/2020 Imm-Influenza (#1) 2024 12/16/2019, 1 , 12/16/2012 Diabetes Screening 11/20/2025 11/20/2024, 0 10/27/2022, 10/27/2022, Additional history exists Cervical Cancer Screening 09/23/2026 HPV Screening 09/23/2026 09/23/2021, 12/31/2018 Pap + HPV 09/23/2026 09/23/2021, 08/0 03/2021, 10/31/2019, Additional history exists Lipid Screening [...] Procedure Name Priority Date/Time Associated Diagnosis Comments IMAGING SCANNED DOCUMENT 11/20/2024 3:00 AM EDT MAMMO DIGITAL SCREEN STEFF W CAD 3D [...] Recently Relevant to Health Maintenance Results * IMAGING SCANNED DOCUMENT (11/20/2024 3:00 AM EDT) 11/20/2024 3:00 AM EDT Nikhil Alex MANAGER COLLECTION SCAN IMAGING Final Result * Screening MAMMO (11/13/2022 3:00 AM EDT) 11/13/2022 3:00 AM EDT Becky Gutierrez PA-C IMG MAMMO Edited Resul t - Final * (ABNORMAL) LIPID PANEL (10/27/2022 9:22 AM EDT) CHOLESTEROL, TOTAL 224(H) <200 mg/dL [facility] HDL CHOLESTEROL 58 > OR = 50 mg/dL [facility] TRIGLYCERIDES 114 <150 mg/dL [facility] LDL-CHOLESTEROL 143(H) 99 mg/dL (calc) [facility] Comment: Reference range: <100 Desirable range <100 mg/dL for primary prevention; <70 mg/dL for patients with CHD or diabetic patients with > or = 2 CHD risk factors. LDL-C is now calculated using the Morro-Laws calculation, which is a validated novel method providing better accuracy than the Friedewald equation in the estimation of LDL-C. Morro SS et al. JESE. 2013;310(19): 3321-6268 (http://education.kooaba/faq/GCC737) CHOL/HDLC RATIO 3.9 <5.0 (calc) [employer] NON-HDL CHOLESTEROL 166(H) <130 mg/dL (calc) [facility] Comment: For patients with diabetes plus 1 major ASCVD risk factor, treating to a non-HDL-C goal of <100 mg/dL (LDL-C of <70 mg/dL) is considered a therapeutic option. Blood Blood / Unknown 10/27/2022 9 :22 AM EDT 10/27/2022 9:22 AM EDT Narrative enosiX - 10/28/2022 4:56 PM EDT FASTING:YES Becky Lukin PA-C LAB - BLOOD DRAW Final Resul t Performing Organization Address [facility] Co de Phone Number [facility] [address] [address], [facility] [address] [address] * HIV 1/2 AG & AB W/RFLX (4TH GEN) (03/03/2022 8:45 AM EST) HIV AG/AB, 4TH GEN NON-REAC TIVE NON-REAC TIVE [facility] Comment: HIV-1 antigen and HIV-1/HIV-2 antibodies were [...] purpose. For additional information please refer to http://education.[employer]/faq/ZKW151 (This link is being provided for informational/ educational purposes only.) The performance of this assay has not been clinically validated in patients less than 2 years old. Blood Blood / Unknown 03/03/2022 8 :45 AM EST 03/03/2022 8:46 AM EST Becky Gutierrez PA-C LAB - BLOOD DRAW Final Resul t Performing Organization Address [facility] Co de Phone Number [facility] [address] [address], [employer] [address] ([address]) [place] [address] * HEPATITIS C AB W/RFLX HCV RNA, QT, RT PCR (01/27/2022 8:44 AM EST) HEPATITIS C ANTIBODY NON-REACT MERRY NON-REACT MERRY [facility] SIGNAL TO CUT-OFF 0.08 <1.00 [employer] Comment: HCV antibody was non-reactive. There is no laboratory evidence of HCV infection. In most cases, no further action is required. However, if recent HCV exposure is suspected, a test for HCV RNA (test code 32987) is suggested. For additional information please refer to http://education.[employer]/faq/GSX77t2 (This link is being provided for informational/ educational purposes only.) Blood Blood / Unknown 01/27/2022 8 :44 AM EST 01/27/2022 8:45 AM EST Becky Gutierrez PA-C LAB - BLOOD DRAW Edited Resu lt - Final Performing Organization Address City/[facility]/ZIP Co de Phone Number [facility] [address] [address], [facility] [address] [address] * PAP SMEAR W/HPV (09/23/2021 10:00 AM EDT) PAP SMEAR INTERPRETATION NORMAL NORMAL [facility] HPV (HUMAN PAPILLOMA) NEGATIVE NEGATIVE [facility] HPV TYPE 16 NEGATIVE NEGATIVE [facility] HPV TYPE 18 NEGATIVE NEGATIVE [facility] Swab 09/23/2021 10:0 0 AM EDT Impressions [facility] - 03/02/2022 1:34 PM EST Negative for squamous intraepithelial lesion and malignancy Fungal organisms morphologically consistent with Sharita spp. High risk HPV assay: Negative Provider [facility] - PATHOLOGY AND CYTOLOGY AMB ULATORY Final Result [facility] [address] [place] [address], * PAP W/ HPV (09/23/2021 3:00 AM EDT) 09/23/2021 3:00 AM EDT us Becky Gutierrez PA-C LAB - PATHOLOGY AND CYTOLOGY AMBULATORY Final Result from Last 3 Months or Most Recently Relevant to Health Maintenance Insurance [id number] [facility] Care Teams Time Signal Wirer Relationship Specialty Start Date End Date Becky Gutierrez PA-C [address] [place] [address] PCP - General Internal Medicine 10/20/17
--- OUTSIDE RECORDS SUMMARY | 2024-12-02 11:43 | XMS_ITS | Clinical Summary ---
Author Organization [facility] Address [address] [facility] [address] [place] [id number] Phone Care Team Providers Care Clinical Research Monitor Name Role Phone Nikhil Alex MICHELLE Primary Care Provider [phone] Allergies Active Allergy Reactions Criticality Noted Date Comments Tramadol Swelling High 05/02/2023 Medications No known medications Active Problems Problem Noted Date Diagnosed Date Syncope 11/20/2024 Encounters Date Type Department Care Team Description 11/20/2024 9:35 AM EDT Ancillary Procedure [facility] Imaging Bedside Ultrasound VRT [address] [place] [address] Monika Dawson MD 11/20/2024 9:31 AM EDT - 11/20/2024 8:48 PM EDT Hospital Encounter [facility] Emergency Dept [address] [place] [address] Monika Dawson MD Huang, Calvin K, MD, MPH Discharge Disposition: Home or Self Care 11/20/2024 Procedure Pass [facility] Emergency Imaging, [facility] [address] [facility], Floor [address] [place] [address] 11/20/2024 Procedure Pass [facility] Emergency Imaging, [facility] [address] [facility], Floor 1 [place] [address] 11/20/2024 Procedure Pass [facility] Emergency Imaging, [facility] [address] [facility], Floor 1 [place] [address] from Last 3 Months Social History Tobacco [...] Sign Reading Time Taken Comments Blood Pressure 141/75 11/20/2024 6:25 PM EDT Pulse 60 11/20/2024 6:46 PM EDT Temperature 36.1 C (97 F) 11/20/2024 6:25 PM EDT Respiratory Rate 18 11/20/2024 6:25 PM EDT Oxygen Saturation 99% 11/20/2024 6:25 PM EDT Inhaled Oxygen Concentration - - [...] FOBT 2022 SIGMOIDOSCOPY 2022 VIRTUAL COLONOSCOPY 2022 INFLUENZA VACCINE (#1) 2024 COVID-19 VACCINE ( season) 2024 MAMMOGRAM 02/09/2026 02/10/2024, 11/13/2022 LIPID PANEL 10/28/2027 10/27/2022, 09/0 06/2022, [...] this topic Medical Devices Not on file Procedures Procedure Name Priority Date/Time Associated Diagnosis Comments LACTIC ACID (LACTATE) STAT 11/20/2024 5:48 PM EDT ECG 12-LEAD STAT 11/20/2024 2:10 PM EDT LACTIC ACID (LACTATE) STAT 11/20/2024 2:10 PM EDT ECG 12-LEAD STAT 11/20/2024 1:43 PM EDT URINE SEDIMENT STAT 11/20/2024 1:34 PM EDT TOXICOLOGY SCREEN, URINE STAT 11/20/2024 1:34 PM EDT URINE HCG STAT 11/20/2024 1:34 PM EDT URINALYSIS W/REFLEX URINE CULTURE STAT 11/20/2024 1:34 PM EDT LACTIC ACID (LACTATE) STAT 11/20/2024 11:49 AM EDT TROPONIN STAT 11/20/2024 10:[address] ANGIO ABDOMEN/PELVIS WITH AND WITHOUT CONTRAST STAT 11/20/2024 10:[address] CHEST PULMONARY ANGIOGRAM (ACUTE) STAT 11/20/2024 10:[address] HEAD WITHOUT CONTRAST STAT 11/20/2024 10:11 AM EDT ABO AND RH STAT 11/20/2024 9:39 AM EDT TYPE AND SCREEN (ABO,RH,ANTIBODY SCREEN) STAT 11/20/2024 9:39 AM EDT NT-PROBNP STAT 11/20/2024 9:36 AM EDT TROPONIN STAT 11/20/2024 9:36 AM EDT VENOUS BLOOD GAS PLUS STAT 11/20/2024 9:36 AM EDT LACTIC ACID (LACTATE) STAT 11/20/2024 9:36 AM EDT PT-INR STAT 11/20/2024 9:36 AM EDT LIPASE STAT 11/20/2024 9:36 AM EDT MAGNESIUM STAT 11/20/2024 9:36 AM EDT LFTS (HEPATIC PANEL) STAT 11/20/2024 9:36 AM EDT BASIC METABOLIC PANEL STAT 11/20/2024 9:36 AM EDT CBC AND DIFFERENTIAL STAT 11/20/2024 9:36 AM EDT from Last 3 Months Results * Lactate (11/20/2024 5:48 PM EDT) Only the most recent of4 resultswithin the time period is included. LACTIC ACID (MMOL/L) 1.2 0.5 - 2.0 mmol/L [facility] Blood 11/20/2024 5:48 PM EDT 11/20/2024 6:02 PM EDT Monika Dawson MD LAB BLOOD ORDERABLES Final R esult [address] [address] * ECG 12-LEAD (11/20/2024 2:10 PM EDT) Only the most recent of2 resultswithin the time period is included. Systolic Blood Pressure 147 mmHg [facility] Diastolic Blood Pressure 66 mmHg [facility] Ventricular Rate EKG/MIN 61 BPM [facility] Atrial Rate 61 BPM [facility] TN Interval 170 ms [facility] QRS Duration 74 ms [facility] QT Interval 414 ms [facility] QTC Interval 416 ms [facility] P [place] 42 degrees [facility] R Wave [place] 59 degrees [facility] T Wave [place] 49 degrees [facility] 11/20/2024 2:10 PM EDT 11/28/2024 7:38 AM EDT Narrative [facility] - 11/28/2024 7:38 AM EDT LOC: [id number] DX: CHEST PAIN REF: MONIKA DAWSON SINUS RHYTHM TRACING IS WITHIN NORMAL LIMITS WHEN COMPARED WITH ECG OF 20-Nov-2024 13:43, NO SIGNIFICANT CHANGE us Monika Dawson MD ECG ORDERABLES Final Result [facility] * (ABNORMAL) Urine Sediment (11/20/2024 1:34 PM EDT) RBC 0-2 0 - 2 /hpf [facility] WBC <10 <10 /hpf [facility] Comment:0 to 2 WBC's per hpf SQUAMOUS CELLS Present(A ) None /hpf [facility] BACTERIA 1+(A) None /hpf [facility] MUCUS Present(A ) None [facility] 11/20/2024 1:34 PM EDT 11/20/2024 1:52 PM EDT Ashanti Gallagher MD URINE ORDERABLES Final Result Performing Organization Address [facility] de Phone Number [address] [address] * (ABNORMAL) Urinalysis w/reflex Urine Culture (11/20/2024 1:34 PM EDT) COLOR Yellow Yellow [facility] CLARITY Clear Clear [facility] GLUCOSE Negative Negative [facility] BILI Negative Negative [facility] KETONES Negative Negative [facility] SPECIFIC GRAVITY >1.040(H) 1.001 - 1.035 [facility] BLOOD 3+(A) Negative [facility] PH 6.5 5.0 - 9.0 [facility] Protein-UA Negative Negative [facility] UROBILINOGEN Negative Negative [facility] NITRITE Negative Negative [facility] Leukocyte esterase, ur Negative Negative [facility] Urine (Urine) 11/20/2024 1:3 4 PM EDT 11/20/2024 1:52 PM EDT Monika Dawson MD URINE ORDERABLES Final Resul t Performing Organization Address [facility] Co de Phone Number [address] [phone] * Toxicology screen, urine (11/20/2024 1:34 PM EDT) URINE AMPHETAMINES Negative Negative [facility] URINE BENZODIAZEPINE Negative Negative [facility] URINE COCAINE METAB Negative Negative [facility] URINE OPIATES Negative Negative [facility] Comment:This assay is not se nsitive for detection of oxycodone and oxymorphone. URINE OXYCODONE Negative Negative [facility] Fentanyl, urine Negative Negative [facility] URINE CREATININE 73 mg/dL [facility] Urine (Urine) 11/20/2024 1:3 4 PM EDT 11/20/2024 1:58 PM EDT Monika Dawson MD URINE ORDERABLES Final Resul t Performing Organization Address [facility] Co de Phone Number [address] [phone] * HCG, urine (11/20/2024 1:34 PM EDT) URINE TEST Negative Negative [facility] Urine (Urine) 11/20/2024 1:3 4 PM EDT 11/20/2024 1:53 PM EDT Monika Dawson MD URINE ORDERABLES Final Resul t Performing Organization Address [facility] de Phone Number [address] [address] * Troponin (11/20/2024 10:48 AM EDT) Only the most recent of2 resultswithin the time period is included. Troponin-T, HS Gen5 <6 0 - 9 ng/L [facility] Blood 11/20/2024 10:4 8 AM EDT 11/20/2024 11:02 AM EDT Monika Dawson MD LAB BLOOD ORDERABLES Final R esult Performing Organization Address [facility] Co de Phone Number [address] [address] * CT ANGIO ABDOMEN/PELVIS WITH AND WITHOUT CONTRAST (11/20/2024 10:11 AM EDT) MGB IM[facility] MEDIA MARKETING SPECIALIST COMMENT incidental pulmonary noduls [facility] IMG RECOMMENDATION COMMENT Focus of Incidental Pulmonary Nodule [facility] Anatomical Region Laterality Modality Abdomen, Abdominal Vasculature C omputed Tomography 11/20/2024 10:1 7 AM EDT Impressions 11/20/2024 11:31 AM EDT 1. No evidence of pulmonary embolism to the level of subsegmental branches. 2. No evidence of aortic dissection, intramural hematoma, or aneurysm. 3. Mesenteric vessels are patent without evidence of end-organ ischemia. 4. Multiple indeterminate pulmonary nodules. The largest one is solid and measures less than 6 mm. In this patient of unknown risk with multiple nodules <6 mm, the largest one being solid: For a low-risk patient, no routine follow-up is required per Fleischner criteria. For a high-risk patient, CT in 12-14 months should be considered. To order, please type CT CHEST [CT.TH.CHEST] and select an Imaging Focus of Incidental Pulmonary Nodule Follow-up . Bridget Mathews, et al. Guidelines for Management of Incidental Pulmonary Nodules Detected on CT Images: From the Fleischner Society 2017. Radiology. 2017 Matteo;284(1):228- 243. A clinically significant result was initiated on 11/20/2024 10:54 AM, Message ID [id number]. ATTESTATION: I, Dr. Lico Douglas as teaching physician, have reviewed the images for this case and if necessary edited the report originally created by Yg Meyer. Narrative 11/20/2024 11:[address] ANGIO ABDOMEN/PELVIS WITH AND WITHOUT CONTRAST, CT CHEST PULMONARY ANGIOGRAM (ACUTE) Referring clinician's provided indication for this examination in Epic: * Abdominal pain, aortic dissection suspected TECHNIQUE: * Multidetector CT pulmonary angiography was performed after administration of intravenous contrast using tailored dose modulation techniques. 3D angiographic postprocessing techniques were acquired in the form of axial maximum intensity projection images (MIPS). * Multidetector-row CTA of the abdomen and pelvis was performed with intravenous contrast using tailored dose modulation techniques. Images were reconstructed in the axial, coronal, and sagittal planes, including angiographic image post- processing. COMPARISON: None. FINDINGS: Pulmonary Angiogram: The pulmonary arteries are well opacified to the level of subsegmental branches. There is no pulmonary embolus. The ascending aortic diameter is within normal limits, measuring 3 cm. VASCULAR FINDINGS: No active extravasation. No aortic aneurysm. There is no aortic dissection, intramural hematoma, or occlusion. The celiac axis, SMA and DEBO are patent. Renal arteries are patent bilaterally. Aorto-iliac system is patent without significant stenosis bilaterally. No intraluminal contrast extravasation to indicate active GI bleeding. There is no venous thrombosis. NON VASCULAR FINDINGS: CHEST: Devices/Tubes/Lines: None. Lungs: There is a 5 mm and 4 mm pulmonary nodules in the left upper lobe (6:319, 362). No consolidation. There is right basilar subsegmental disease. The airways are clear. Pleura: No pleural effusion or pneumothorax. Mediastinum: Partially imaged thyroid gland shows no nodules. Heart and pericardium are unremarkable. Lymph Nodes: No enlarged supraclavicular, axillary, mediastinal, or hilar lymph nodes. Upper Abdomen: No abnormality in the visualized upper abdomen. Chest Wall: No chest wall mass. ABDOMEN AND PELVIS: Liver: No focal lesions. Biliary: Normal gallbladder. No biliary ductal dilatation. Spleen: No splenomegaly or focal lesions. Pancreas: No masses or ductal dilatation. Adrenal Glands: No nodules. Kidneys/Ureters: No solid mass, stone, or hydronephrosis. Bowel: Normal appendix. Normal small bowel and colon. Moderate stool burden in the rectum. Peritoneum/Retroperitoneum: No masses, pneumoperitoneum, or fluid. Lymph Nodes: No lymphadenopathy. Pelvic Organs/Bladder: No mass. Incidentally noted 1.9 cm right Bartholin's cyst with layering calcifications. Bones/Soft Tissues: Mild multilevel endplate degeneration seen in the thoracolumbar spine with mild disc space narrowing. 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 Procedure Note Lico Douglas MD - 11/20/2024 CT ANGIO ABDOMEN/PELVIS WITH AND WITHOUT CONTRAST, CT CHEST PULMONARYANGIOGRAM (ACUTE) Referring clinician's provided indication for this examination in Epic: *Abdominal pain, aortic dissection suspected TECHNIQUE: * Multidetector CT pulmonary angiography was performed afteradministration of intravenous contrast using tailored dose modulationtechniques. 3D angiographic postprocessing techniques were acquired in theform of axial maximum intensity projection images (MIPS). * Multidetector-row CTA of the abdomen and pelvis was performed withintravenous contrast using tailored dose modulation techniques. Imageswere reconstructed in the axial, coronal, and sagittal planes, includingangiographic image post- processing. COMPARISON: None. FINDINGS: Pulmonary Angiogram: The pulmonary arteries are well opacified to the level of subsegmentalbranches. There is no pulmonary embolus. The ascending aortic diameter iswithin normal limits, measuring 3 cm. VASCULAR FINDINGS: No active extravasation. No aortic aneurysm. There is no aortic dissection, intramural hematoma, or occlusion. The celiac axis, SMA and DEBO are patent. Renal arteries are patent bilaterally. Aorto-iliac system is patent without significant stenosis bilaterally. No intraluminal contrast extravasation to indicate active GI bleeding. There is no venous thrombosis. NON VASCULAR FINDINGS: CHEST: Devices/Tubes/Lines: None. Lungs: There is a 5 mm and 4 mm pulmonary nodules in the left upper lobe(6:319, 362). No consolidation. There is right basilar subsegmentaldisease. The airways are clear. Pleura: No pleural effusion or pneumothorax. Mediastinum: Partially imaged thyroid gland shows no nodules. Heart andpericardium are unremarkable. Lymph Nodes: No enlarged supraclavicular, axillary, mediastinal, or hilarlymph nodes. Upper Abdomen: No abnormality in the visualized upper abdomen. Chest Wall: No chest wall mass. ABDOMEN AND PELVIS: Liver: No focal lesions. Biliary: Normal gallbladder. No biliary ductal dilatation. Spleen: No splenomegaly or focal lesions. Pancreas: No masses or ductal dilatation. Adrenal Glands: No nodules. Kidneys/Ureters: No solid mass, stone, or hydronephrosis. Bowel: Normal appendix. Normal small bowel and colon. Moderate stoolburden in the rectum. Peritoneum/Retroperitoneum: No masses, pneumoperitoneum, or fluid. Lymph Nodes: No lymphadenopathy. Pelvic Organs/Bladder: No mass. Incidentally noted 1.9 cm rightBartholin's cyst with layering calcifications. Bones/Soft Tissues: Mild multilevel endplate degeneration seen in thethoracolumbar spine with mild disc space narrowing. Focal ossification ofligamentum flavum and the left T11-12, causing adjacent thecal sacindentation. IMPRESSION: 1. No evidence of pulmonary embolism to the level of subsegmentalbranches. 2. No evidence of aortic dissection, intramural hematoma, or aneurysm. 3. Mesenteric vessels are patent without evidence of end-organischemia. 4. Multiple indeterminate pulmonary nodules. The largest one is solid andmeasures less than 6 mm. In this patient of unknown risk with multiple nodules <6 mm, the largestone being solid: For a low-risk patient, no routine follow-up is required per Flelizynercriteria. For a high-risk patient, CT in 12-14 months should beconsidered. To order, please type CT CHEST [CT.TH.CHEST] and select anImaging Focus of Incidental Pulmonary Nodule Follow-up . Brigdet Mathews et al. Guidelines for Management of Incidental PulmonaryNodules Detected on CT Images: From the Fleischner Society 2017.Radiology. 2017 Aug;284(1):228- 243. A clinically significant result was initiated on 11/20/2024 10:54 AM,Message ID [id number]. ATTESTATION: Dr. Lico Hernandez as teaching physician, have reviewedthe images for this case and if necessary edited the report originallycreated by Yg Meyer. us Monika Dawson MD IMG CT ABD/PELVIS Final Resu lt * CT CHEST PULMONARY ANGIOGRAM (ACUTE) (11/20/2024 10:11 AM EDT) [facility] MEDIA MARKETING SPECIALIST COMMENT incidental pulmonary noduls [facility] Anatomical Region Laterality Modality Chest, Thoracic Vasculature Comp uted Tomography 11/20/2024 10:1 7 AM EDT Impressions 11/20/2024 11:31 AM EDT 1. No evidence of pulmonary embolism to the level of subsegmental branches. 2. No evidence of aortic dissection, intramural hematoma, or aneurysm. 3. Mesenteric vessels are patent without evidence of end-organ ischemia. 4. Multiple indeterminate pulmonary nodules. The largest one is solid and measures less than 6 mm. In this patient of unknown risk with multiple nodules <6 mm, the largest one being solid: For a low-risk patient, no routine follow-up is required per Fleischner criteria. For a high-risk patient, CT in 12-14 months should be considered. To order, please type CT CHEST [CT.TH.CHEST] and select an Imaging Focus of Incidental Pulmonary Nodule Follow-up . kaz Meyer al. Guidelines for Management of Incidental Pulmonary Nodules Detected on CT Images: From the Fleischner Society 2017. Radiology. 2017 Matteo;284(1):228- 243. A clinically significant result was initiated on 11/20/2024 10:54 AM, Message ID [id number]. ATTESTATION: I, Dr. Lico Douglas as teaching physician, have reviewed the images for this case and if necessary edited the report originally created by Yg Meyer. Narrative 11/20/2024 11:[address] ANGIO ABDOMEN/PELVIS WITH AND WITHOUT CONTRAST, CT CHEST PULMONARY ANGIOGRAM (ACUTE) Referring clinician's provided indication for this examination in Epic: * Abdominal pain, aortic dissection suspected TECHNIQUE: * Multidetector CT pulmonary angiography was performed after administration of intravenous contrast using tailored dose modulation techniques. 3D angiographic postprocessing techniques were acquired in the form of axial maximum intensity projection images (MIPS). * Multidetector-row CTA of the abdomen and pelvis was performed with intravenous contrast using tailored dose modulation techniques. Images were reconstructed in the axial, coronal, and sagittal planes, including angiographic image post- processing. COMPARISON: None. FINDINGS: Pulmonary Angiogram: The pulmonary arteries are well opacified to the level of subsegmental branches. There is no pulmonary embolus. The ascending aortic diameter is within normal limits, measuring 3 cm. VASCULAR FINDINGS: No active extravasation. No aortic aneurysm. There is no aortic dissection, intramural hematoma, or occlusion. The celiac axis, SMA and DEBO are patent. Renal arteries are patent bilaterally. Aorto-iliac system is patent without significant stenosis bilaterally. No intraluminal contrast extravasation to indicate active GI bleeding. There is no venous thrombosis. NON VASCULAR FINDINGS: CHEST: Devices/Tubes/Lines: None. Lungs: There is a 5 mm and 4 mm pulmonary nodules in the left upper lobe (6:319, 362). No consolidation. There is right basilar subsegmental disease. The airways are clear. Pleura: No pleural effusion or pneumothorax. Mediastinum: Partially imaged thyroid gland shows no nodules. Heart and pericardium are unremarkable. Lymph Nodes: No enlarged supraclavicular, axillary, mediastinal, or hilar lymph nodes. Upper Abdomen: No abnormality in the visualized upper abdomen. Chest Wall: No chest wall mass. ABDOMEN AND PELVIS: Liver: No focal lesions. Biliary: Normal gallbladder. No biliary ductal dilatation. Spleen: No splenomegaly or focal lesions. Pancreas: No masses or ductal dilatation. Adrenal Glands: No nodules. Kidneys/Ureters: No solid mass, stone, or hydronephrosis. Bowel: Normal appendix. Normal small bowel and colon. Moderate stool burden in the rectum. Peritoneum/Retroperitoneum: No masses, pneumoperitoneum, or fluid. Lymph Nodes: No lymphadenopathy. Pelvic Organs/Bladder: No mass. Incidentally noted 1.9 cm right Bartholin's cyst with layering calcifications. Bones/Soft Tissues: Mild multilevel endplate degeneration seen in the thoracolumbar spine with mild disc space narrowing. 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 Procedure Note Lico Douglas MD - 11/20/2024 CT ANGIO ABDOMEN/PELVIS WITH AND WITHOUT CONTRAST, CT CHEST PULMONARYANGIOGRAM (ACUTE) Referring clinician's provided indication for this examination in Epic: *Abdominal pain, aortic dissection suspected TECHNIQUE: * Multidetector CT pulmonary angiography was performed afteradministration of intravenous contrast using tailored dose modulationtechniques. 3D angiographic postprocessing techniques were acquired in theform of axial maximum intensity projection images (MIPS). * Multidetector-row CTA of the abdomen and pelvis was performed withintravenous contrast using tailored dose modulation techniques. Imageswere reconstructed in the axial, coronal, and sagittal planes, includingangiographic image post- processing. COMPARISON: None. FINDINGS: Pulmonary Angiogram: The pulmonary arteries are well opacified to the level of subsegmentalbranches. There is no pulmonary embolus. The ascending aortic diameter iswithin normal limits, measuring 3 cm. VASCULAR FINDINGS: No active extravasation. No aortic aneurysm. There is no aortic dissection, intramural hematoma, or occlusion. The celiac axis, SMA and DEBO are patent. Renal arteries are patent bilaterally. Aorto-iliac system is patent without significant stenosis bilaterally. No intraluminal contrast extravasation to indicate active GI bleeding. There is no venous thrombosis. NON VASCULAR FINDINGS: CHEST: Devices/Tubes/Lines: None. Lungs: There is a 5 mm and 4 mm pulmonary nodules in the left upper lobe(6:319, 362). No consolidation. There is right basilar subsegmentaldisease. The airways are clear. Pleura: No pleural effusion or pneumothorax. Mediastinum: Partially imaged thyroid gland shows no nodules. Heart andpericardium are unremarkable. Lymph Nodes: No enlarged supraclavicular, axillary, mediastinal, or hilarlymph nodes. Upper Abdomen: No abnormality in the visualized upper abdomen. Chest Wall: No chest wall mass. ABDOMEN AND PELVIS: Liver: No focal lesions. Biliary: Normal gallbladder. No biliary ductal dilatation. Spleen: No splenomegaly or focal lesions. Pancreas: No masses or ductal dilatation. Adrenal Glands: No nodules. Kidneys/Ureters: No solid mass, stone, or hydronephrosis. Bowel: Normal appendix. Normal small bowel and colon. Moderate stoolburden in the rectum. Peritoneum/Retroperitoneum: No masses, pneumoperitoneum, or fluid. Lymph Nodes: No lymphadenopathy. Pelvic Organs/Bladder: No mass. Incidentally noted 1.9 cm rightBartholin's cyst with layering calcifications. Bones/Soft Tissues: Mild multilevel endplate degeneration seen in thethoracolumbar spine with mild disc space narrowing. Focal ossification ofligamentum flavum and the left T11-12, causing adjacent thecal sacindentation. IMPRESSION: 1. No evidence of pulmonary embolism to the level of subsegmentalbranches. 2. No evidence of aortic dissection, intramural hematoma, or aneurysm. 3. Mesenteric vessels are patent without evidence of end-organischemia. 4. Multiple indeterminate pulmonary nodules. The largest one is solid andmeasures less than 6 mm. In this patient of unknown risk with multiple nodules <6 mm, the largestone being solid: For a low-risk patient, no routine follow-up is required per Fleischnercriteria. For a high-risk patient, CT in 12-14 months should beconsidered. To order, please type CT CHEST [CT.TH.CHEST] and select anImaging Focus of Incidental Pulmonary Nodule Follow-up . Ferhodavid H, et al. Guidelines for Management of Incidental PulmonaryNodules Detected on CT Images: From the Fleischner Society 2017.Radiology. 2017 Matteo;284(1):228- 243. A clinically significant result was initiated on 11/20/2024 10:54 AM,Message ID [id number]. ATTESTATION: I, Dr. Lico Douglas as teaching physician, have reviewedthe images for this case and if necessary edited the report originallycreated by Yg Meyer. us Monika Dawson MD IMG CT CHEST Final Result * CT HEAD WITHOUT CONTRAST (11/20/2024 10:11 AM EDT) Anatomical Region Laterality Modality Head Computed Tomogra phy 11/20/2024 10:1 9 AM EDT Impressions 11/20/2024 11:18 AM EDT No acute intracranial findings. ATTESTATION: I, Dr. Lico Douglas as teaching physician, have reviewed the images for this case and if necessary edited the report originally created by Carlitos Browning. Narrative 11/20/2024 11:[address] HEAD WITHOUT CONTRAST Referring clinician's provided indication for this examination in [facility]: * Cerebral hemorrhage suspected TECHNIQUE: CT of the head was performed without intravenous contrast using tailored dose modulation techniques. Images were reconstructed in the axial, coronal, and sagittal planes. COMPARISON: None available FINDINGS: Brain Parenchyma: No midline shift, mass effect, parenchymal hemorrhage, or evidence of acute territorial infarct. Ventricular System and Extra-Axial Spaces: No extra-axial fluid collections. Basal cisterns are patent. No hydrocephalus. Osseous and Extracranial Structures: No calvarial fracture or significant soft tissue hematoma. Left maxillary sinus mucous retention cyst. No orbital abnormality. Procedure Note Lico Douglas MD - 11/20/2024 CT HEAD WITHOUT CONTRAST Referring clinician's provided indication for this examination in [facility]: *Cerebral hemorrhage suspected TECHNIQUE: CT of the head was performed without intravenous contrast usingtailored dose modulation techniques. Images were reconstructed in theaxial, coronal, and sagittal planes. COMPARISON: None available FINDINGS: Brain Parenchyma: No midline shift, mass effect, parenchymal hemorrhage,or evidence of acute territorial infarct. Ventricular System and Extra-Axial Spaces: No extra-axial fluidcollections. Basal cisterns are patent. No hydrocephalus. Osseous and Extracranial Structures: No calvarial fracture or significantsoft tissue hematoma. Left maxillary sinus mucous retention cyst. Noorbital abnormality. IMPRESSION: No acute intracranial findings. ATTESTATION: Dr. Lico Hernandez as teaching physician, have reviewedthe images for this case and if necessary edited the report originallycreated by Carlitos Browning. us Monika Dawson MD [facility] CT HEAD/NECK Final Resul t * ABO and Rh (11/20/2024 9:39 AM EDT) Expiration Date of Sample 11/23/2024 11:59 PM [facility] ABO O 11/20/2024 10:47 AM EDT [facility] Rh Positive 11/20/2024 10:47 AM EDT [facility] Resulting Agency [facility] 11/20/2024 9:39 AM EDT 11/20/2024 9:51 AM EDT Blood Bank BLOOD BANK TEST ORDERABLES Final Result Performing Organization Address City/[facility] Co de Phone Number [address] [address] * Type and Screen (ABO,Rh,Antibody Screen) (11/20/2024 9:39 AM EDT) Expiration Date of Sample 11/23/2024 11:59 PM [facility] ABO O 11/20/2024 10:47 AM EDT [facility] Rh Positive 11/20/2024 10:47 AM EDT [facility] Resulting Agency [facility] Antibody Screen Negative 11/20/2024 11:02 AM EDT [facility] Blood 11/20/2024 9:39 AM EDT 11/20/2024 9:51 AM EDT Monika Dawson MD BLOOD BANK TEST ORDERABLES F inal Result Performing Organization Address City/[facility] Co de Phone Number [address] [address] * (ABNORMAL) VENOUS BLOOD GAS PLUS (11/20/2024 9:36 AM EDT) FIO2 UNSPEC. FIO2/L min [facility] PH 7.43(H) 7.30 - 7.40 [facility] PCO2 38 38 - 50 mm[Hg] [facility] PO2 33(L) 35 - 50 mm[Hg] [facility] Base Excess, unspecified 0.3 0.0 - 3.0 mmol/L [facility] HCO3, unspecified 25 24 - 30 mmol/L [facility] SODIUM 142 135 - 145 mmol/L [facility] POTASSIUM 3.5 3.5 - 5.0 mmol/L [facility] IONIZED CALCIUM 1.11(L) 1.14 - 1.30 mmol/L [facility] Glucose, whole bld 133(H) 70 - 110 mg/dL [facility] HGB (BG) 11.0(L) 12.0 - 16.0 g/dl [facility] SO2-VENOUS (SO2, venous) 56.3(L) 60.0 - 85.0 % [facility] Blood 11/20/2024 9:36 AM EDT 11/20/2024 9:44 AM EDT Monika Dawson MD LAB BLOOD ORDERABLES Final R esult [address] [address] * LFTs (hepatic panel) (11/20/2024 9:36 AM EDT) ALBUMIN 4.3 3.3 - 5.0 g/dL [facility] TOTAL BILIRUBIN 0.2 0.0 - 1.0 mg/dL [facility] DIRECT BILIRUBIN 0.1 0.0 - 0.3 mg/dL [facility] ALKALINE PHOSPHATASE 74 30 - 100 U/L [facility] AST 16 9 - 32 U/L [facility] ALT 11 7 - 33 U/L [facility] TOTAL PROTEIN 7.4 6.0 - 8.3 g/dL [facility] GLOBULIN 3.1 1.9 - 4.1 g/dL [facility] Blood 11/20/2024 9:36 AM EDT 11/20/2024 9:47 AM EDT Monika Dawson MD LAB BLOOD ORDERABLES Final R esult [address] [address] * PT-INR (11/20/2024 9:36 AM EDT) PT 10.4 10.0 - 13.0 sec [facility] INR 0.9 0.9 - 1.1 [facility] Blood 11/20/2024 9:36 AM EDT 11/20/2024 9:48 AM EDT Monika Dawson MD LAB BLOOD ORDERABLES Final R esult [facility] [address] [place] [address] * (ABNORMAL) CBC and differential (11/20/2024 9:36 AM EDT) WBC 9.23 4.00 - 11.00 K/uL [facility] RBC 4.44 4.00 - 5.20 M/uL [facility] HGB 10.5(L) 12.0 - 16.0 g/dL [facility] HCT 34.3(L) 36.0 - 46.0 % [facility] PLT 509(H) 150 - 450 K/uL [facility] MCV 77.3(L) 80.0 - 100.0 fL [facility] MCH 23.6(L) 27.0 - 31.0 pg [facility] MCHC 30.6(L) 32.0 - 36.0 g/dL [facility] RDW 15.7(H) 11.5 - 14.5 % [facility] MPV 11.2 8.4 - 12.0 fL [facility] NRBC 0.00 0.00 /100 WBCs [facility] ABSOLUTE NRBC 0.00 0.00 K/uL [facility] [employer] [facility] NEUTS 46.8(L) 48.0 - 76.0 % [facility] LYMPHS 42.9(H) 18.0 - 41.0 % [facility] MONOS 7.0 4.0 - 11.0 % [facility] EOS 2.2 0.0 - 5.0 % [facility] BASOS 0.8 0.0 - 1.5 % [facility] % IMMATURE GRANS 0.3 0.0 - 0.9 % [facility] ABSOLUTE NEUTS 4.32 1.92 - 7.60 K/uL [facility] ABSOLUTE LYMPHS 3.96 0.72 - 4.10 K/uL [facility] ABSOLUTE MONOS 0.65 0.16 - 1.10 K/uL [facility] ABSOLUTE EOS 0.20 0.00 - 0.50 K/uL [facility] ABSOLUTE BASOS 0.07 0.00 - 0.15 K/uL [facility] ABS IMMATURE GRANS 0.03 0.00 - 0.09 K/uL [facility] Blood 11/20/2024 9:36 AM EDT 11/20/2024 9:47 AM EDT Result [facility] Monika Dawson MD LAB BLOOD ORDERABLES Final R esult Performing Organization Address [facility] Co de Phone Number [address] [address] * NT-proBNP (11/20/2024 9:36 AM EDT) NT-PROBNP 50 0 - 450 pg/mL [facility] Comment: Reference Range: Age <50 years: 0-450 pg/ml Age 50-75 years: 0-900 pg/ml Age >75 years: 0-1800 pg/ml Among patients with dyspnea, NT-proBNP is highly sensitive for the detection of acute congestive heart failure. In addition, a NT-proBNP <300 pg/ml effectively rules out acute congestive heart failure, with 99% negative predictive value. Knowledge of each individual patient's NT-proBNP range may be more useful than using similar cut-points for every patient. Marked elevations in NT-proBNP levels may be observed in states other than left ventricular congestive heart failure, including: acute coronary syndromes, right heart strain/failure (including pulmonary embolism and cor pulmonae), critical illness, renal failure, atrial fibrillation, as well as advanced age. Falsely low NT-proBNP in congestive heart failure patients may be observed with increasing body-mass index. Blood 11/20/2024 9:36 AM EDT 11/20/2024 9:48 AM EDT Monika Dawson MD LAB BLOOD ORDERABLES Final R esult Performing Organization Address [facility] Co de Phone Number [address] [address] * Magnesium (11/20/2024 9:36 AM EDT) MAGNESIUM 1.9 1.7 - 2.4 mg/dL [facility] Blood 11/20/2024 9:36 AM EDT 11/20/2024 9:47 AM EDT Monika Dawson MD LAB BLOOD ORDERABLES Final R esult [address] [address] * Lipase (11/20/2024 9:36 AM EDT) LIPASE 23 13 - 60 U/L [facility] Blood 11/20/2024 9:36 AM EDT 11/20/2024 9:47 AM EDT Monika Dawson MD LAB BLOOD ORDERABLES Final R esult Performing Organization Address [facility] Co de Phone Number [address] [address] * (ABNORMAL) Basic metabolic panel (11/20/2024 9:36 AM EDT) SODIUM 139 135 - 145 mmol/L [facility] POTASSIUM 3.6 3.4 - 5.0 mmol/L [facility] CHLORIDE 105 98 - 108 mmol/L [facility] CO2 22(L) 23 - 32 mmol/L [facility] BUN 16 8 - 25 mg/dL [facility] CREATININE 0.75 0.50 - 1.00 mg/dL [facility] GLUCOSE 134(H) 70 - 110 mg/dL [facility] CALCIUM 9.1 8.5 - 10.5 mg/dL [facility] EGFR 99 >59 mL/min/1. 73m2 [facility] Comment:Estimated glomerular filtration rate calculated using the CKD-EPI refit equation. ANION GAP 12 3 - 17 mmol/L [facility] Blood 11/20/2024 9:36 AM EDT 11/20/2024 9:47 AM EDT Monika Dawson MD LAB BLOOD ORDERABLES Final R esult Performing Organization Address City/[facility] Co de Phone Number [address] [address] from Last 3 Months Insurance [facility] [employer] Care Teams Clinical Research Monitor Relationship Specialty Start Date End Date Nikhil Alex FNP [facility] [place] [id number] PCP - General Nurse Practitioner 05/02/23 Additional Source Comments The information contained in this document represents components of the legal health record. It is not the complete legal health record.[facility]
[2024-12-02 11:45] LABS: Hematocrit 35.4 % (37.0-47.0); Hemoglobin 10.6 g/dl (12.0-16.0); Imm Gran Abs Auto 0.03 X10*3/uL (0.00-0.03); Imm Gran Pct Auto 0.4 % (0.0-0.4); Lymphocytes Absolute Auto 2.5 X10*3/uL (1.2-4.9); MANUAL DIFF FLAG NO; Mean Corpuscular HGB Conc 29.9 g/dl (31.0-35.0); Mean Corpuscular Hemoglobin 23.3 pg (27.0-33.0); Mean Corpuscular Volume 77.8 fL (80.0-98.0); NRBC Abs Auto 0.000 X10*3/uL (0.0-0.012); NRBC Pct Auto 0.0 /100WBC (0.0-0.2); Platelet Count 430 X10*3/uL (160-400); Red Blood Count 4.55 X10*6/uL (4.20-5.50); White Blood Count 8.5 X10*3/uL (4.8-10.8)
[2024-12-02 12:00] LABS: Alanine Aminotransferase 19 U/L (0-31); Albumin Level 4.3 g/dL (3.5-5.0); Alkaline Phosphatase 73 U/L (39-117); Anion Gap 10 (12-20); Aspartate Amino Transferase 20 U/L (5-31); Blood Urea Nitrogen 14 mg/dL (9-16); Calcium 8.9 mg/dL (8.4-10.2); Carbon Dioxide 26 mmol/L (22-29); Chloride 108 mmol/L (96-108); Creatinine Clr Calc Pharmacy 122.1; Estimated Glomerular Filt Rate > 60; Lipase 17 U/L (8-78); Magnesium 1.8 mg/dL (1.6-2.6); Potassium 4.7 mmol/L (3.3-5.1); Sodium 139 mmol/L (135-145); Total Protein 7.2 g/dL (6.5-8.0)
[2024-12-02 12:12] LABS: Troponin-I High Sensitivity < 2.7 ng/L (<3.5-17.0)
[2024-12-02 14:30] VITALS: BP 137/80; PULSE 59; RESP 18; O2SAT 100
[2024-12-02 16:04] VITALS: BP 146/77; PULSE 61; RESP 18; O2SAT 99
[2024-12-02 17:47] LABS: Appearance Urine Clear; Glucose Urine UA Negative (Negative); PH 7.0 (5.0-9.0); Specific Gravity - Urine 1.020 (1.005-1.025)
[2024-12-02 18:23] VITALS: BP 133/76; PULSE 78; RESP 18; TEMP 36.6; O2SAT 98
== END 2024-12-02 18:26 | disposition home or self-care (01) ==
PROVIDERS: Physician Assistant Medical; Emergency Provider Emergency Medicine; PCP Internal Medicine
DX: R20.2 Paresthesia of skin (principal); R51.9 Headache, unspecified; R20.0 Anesthesia of skin; M25.512 Pain in left shoulder; Z79.899 Other long term (current) drug therapy
CPT/HCPCS: 36415; 70450; 70551; 80053; 81003; 83690; 83735; 84484; 85025; 93005; 96365; 96366; 99284; 99285; J0131

== ENCOUNTER → 2024-12-02 11:24 | Outpatient (BNV) | payer OTHER, SELFPAY | PROVIDERS: Emergency Provider Emergency Medicine; PCP Internal Medicine; Visit Provider Radiology Diagnostic Radiology | DX: R20.2 Paresthesia of skin (principal) | CPT/HCPCS: 70450; 70551 ==

== ENCOUNTER → 2024-12-02 11:24 | Outpatient (BNV) | payer OTHER, SELFPAY | PROVIDERS: Emergency Provider Emergency Medicine; PCP Internal Medicine; Visit Provider Internal Medicine Cardiovascular Disease | DX: R20.2 Paresthesia of skin (principal) | CPT/HCPCS: 93010 ==

== ENCOUNTER 2024-12-06 10:56 | Outpatient (AMB) | payer OTHER, SELFPAY ==
--- NOTE | 2024-12-06 10:57 | A.OFFVIS_ITS ---
Vital Signs 12/06/24 10:59 Height 5 ft 5 in Weight 194 lb 0.108 oz BMI 32.3 BP 120/69 Blood Pressure Location Lt brachial Position Sitting Pulse 90 Intake Visit Reasons: s/p double Allergies tramadol (TRAMADOL) Allergy (Intermediate, Verified 12/06/24 10:59) NAUSEA, VOMITING, DIZZINESS HPI Comments Details: 49 y.o F with PMH of who is here for rectal bleeding. Seen with Bre SONI for interpretation. Reports occured started almost 8 months ago - at that time unable to recall trigger. Would notice blood rectally even without passing a BM. Assoc with rectal pressure and pain. Was seen in ER for this april, noted to be anemic. Reports weight gain of almost 40 lbs in the past 6 months. Last colo was > 5 years ago done for rectal bleeding which was deemed to be from hemorrhoids. 10/26/24: 1. Normal esophagus 2. Gastritis (biopsy) 3. Normal duodenum (biopsy) 4. Normal colon and terminal ileum mucosa 5. Large internal and external hemorrhoids Path: A. Duodenum, biopsy: Duodenal mucosa with preserved villi and no specific change. B. Stomach, random, biopsy: Gastric antral and body mucosa with minimal chronic gastritis with rare neutrophils; negative for H. pylori, intestinal metaplasia and dysplasia. 12/06/24: Pt here for follow up after EGD/colo. EGD with mild gastritis without H Pylori, no celiac noted. Colonoscopy identified hemorrhoids responsible for rectal bleeding. Hemorrhoidectomy is scheduled on December 29. Steroid cream has been useful in managing symptoms. No polyps or family history of colon cancer. --- Pt was informed and consented to the use of ambient scribe for this encounter. --- [facility] Medical History (Updated 12/03/24 @ 00:00 by Carmela Gerard) Bleeding hemorrhoids Psoriasis Anemia Asthma Surgical History (Updated 12/06/24 @ 11:00 by SHARITA Zavaleta) Hx of endoscopy History of tubal ligation H/O colonoscopy Social History Are you a primary director of critical care to a significant other at home: No Do you presently have visiting nurse or other home services: No Patient Tobacco Use Status: Never used Tobacco Review of Systems Const All systems reviewed & are unremarkable except as noted in HPI and below Physical Exam Exam Exam: No apparent distress Nonicteric Abdomen soft, nondistended Alert and oriented x3, normal gait Vital Signs: Last Vital Signs Pulse 90 12/06/24 10:59 BP 120/69 12/06/24 10:59 BMI result Body Mass Index 32.3 Assessment & Plan Assessment & Plan (1) Bright red rectal bleeding: Code(s): K62.5 - Hemorrhage of anus and rectum Category: Medical (2) Anemia: Code(s): D64.9 - Anemia, unspecified Category: Medical (3) Gastritis: Code(s): K29.70 - Gastritis, unspecified, without bleeding Plan Rectal bleeding and anemia likely 2/2 bleeding hemorrhoids. Currently good response to topical steroids. She is also booked for surgical hemorrhoidectomy through Dr Carroll next month. In terms of anemia, she is on iron supplementation. plan: - Cont omeprazole for 8 weeks total and then stop - Anusol supp as needed - Avoid constipation and straining - Next colo for asymptomatic colorectal screening in 10 years Follow up in GI office PRN Coding Level of Care Code Est Pt Level 4 (06050) Diagnoses Bright red rectal bleeding K62.5 Anemia D64.9 Gastritis K29.70
[2024-12-06 10:59] VITALS: BP 120/69; PULSE 90; BMI 32.3
--- OUTSIDE RECORDS SUMMARY | 2024-12-06 13:23 | XMS_ITS | Encounter Summary ---
Author Organization [employer] [facility] Address [address] [place] [address] Phone Care Team Providers Care Alterations Supervisor Name Role Phone Abi Nikhil MARTINEZ Primary Care Provider Encounter Details Date Type Department Care Team (Late st Contact Info) Description 11/20/2024 Procedure Pass [facility] Emergency Imaging, [address] [place] [address] Social History Tobacco Use Types Packs/Day Years [...] on filedocumented in this encounter Care Teams Alterations Supervisor Relationship Specialty Start Date End Date Nikhil Alex FNP [address] [place] [phone] PCP - General Nurse Practitioner 05/02/23 documented as of this encounter Additional Source Comments The information contained in this document represents components of the legal health record. It is not the complete legal health record.[facility]
--- OUTSIDE RECORDS SUMMARY | 2024-12-06 13:23 | XMS_ITS | Encounter Summary ---
Author Organization [employer] [facility] Address [address] [place] [address] Phone Care Team Providers Care Dining Room Attendant Cafeteria Name Role Phone Abi Nikhil MARTINEZ Primary Care Provider [phone] Encounter Details Date Type Department Care Team (Late st Contact Info) Description 11/20/2024 Procedure Pass [facility] Emergency Imaging, [address] [place] [address] Social History Tobacco Use Types Packs/Day Years [...] on filedocumented in this encounter Care Teams Dining Room Attendant Cafeteria Relationship Specialty Start Date End Date Nikhil Alex FNP [address] [place] [phone] PCP - General Nurse Practitioner 05/02/23 documented as of this encounter Additional Source Comments The information contained in this document represents components of the legal health record. It is not the complete legal health record.[facility]
--- OUTSIDE RECORDS SUMMARY | 2024-12-06 13:23 | XMS_ITS | Clinical Summary ---
Author Organization [facility] Address [address] [facility] [address] [place] [address] Phone Care Team Providers Care Box Spring Frame Builder Name Role Phone Nikhil Alex MICHELLE Primary Care Provider Allergies Active Allergy Reactions Criticality Noted Date Comments Tramadol Swelling High 05/02/2023 Medications No known medications Active Problems Problem Noted Date Diagnosed Date Syncope 11/20/2024 Encounters Date Type Department Care Team Description 11/20/2024 9:35 AM EDT Ancillary Procedure [facility] Imaging Bedside Ultrasound VRT [address] [place] [address] Monika Dawson MD 11/20/2024 9:31 AM EDT - 11/20/2024 8:48 PM EDT Hospital Encounter [facility] Emergency Dept [address] [place] [address] Monika Dawson MD Huang, Calvin K, MD, MPH Discharge Disposition: Home or Self Care 11/20/2024 Procedure Pass [facility] Emergency Imaging, [facility] [address] [facility], Floor 1 [place] [address] 11/20/2024 Procedure Pass [facility] Emergency Imaging, [facility] [address] [facility], Floor 1 [place] [address] 11/20/2024 Procedure Pass [facility] Emergency Imaging, [facility] [address] [facility], Floor 1 [place] [address] from Last 3 Months Social History Tobacco [...] ACID (MMOL/L) 1.2 0.5 - 2.0 mmol/L [facility] Blood 11/20/2024 5:48 PM EDT 11/20/2024 6:02 PM EDT Monika Dawson MD LAB BLOOD ORDERABLES Final R esult [address] [address] * ECG 12-LEAD (11/20/2024 2:10 PM EDT) Only the most recent of2 resultswithin the time period is included. Systolic Blood Pressure 147 mmHg [facility] Diastolic Blood Pressure 66 mmHg [facility] Ventricular Rate EKG/MIN 61 BPM [facility] Atrial Rate 61 BPM [facility] [place] Interval 170 ms [facility] QRS Duration 74 ms [facility] QT Interval 414 ms [facility] QTC Interval 416 ms [facility] P Wright 42 degrees [facility] R Wave Wright 59 degrees [facility] T Wave Wright 49 degrees [facility] 11/20/2024 2:10 PM EDT [...] EDT) RBC 0-2 0 - 2 /hpf [facility] WBC <10 <10 /hpf [facility] Comment:0 to 2 WBC's per hpf SQUAMOUS CELLS Present(A ) None /hpf [facility] BACTERIA 1+(A) None /hpf [facility] MUCUS Present(A ) None [facility] 11/20/2024 1:34 PM EDT 11/20/2024 1:52 PM EDT Ashanti Gallagher MD URINE ORDERABLES Final Result Performing Organization Address [facility] de Phone Number [address] [address] * (ABNORMAL) Urinalysis w/reflex Urine Culture (11/20/2024 1:34 PM EDT) COLOR Yellow Yellow [facility] CLARITY Clear Clear [facility] GLUCOSE Negative Negative [facility] BILI Negative Negative [facility] KETONES Negative Negative [facility] SPECIFIC GRAVITY >1.040(H) 1.001 - 1.035 [facility] BLOOD 3+(A) Negative [facility] PH 6.5 5.0 - 9.0 [facility] Protein-UA Negative Negative [facility] UROBILINOGEN Negative Negative [facility] NITRITE Negative Negative [facility] Leukocyte esterase, ur Negative Negative [facility] Urine (Urine) 11/20/2024 1:3 4 PM EDT 11/20/2024 1:52 PM EDT Monika Dawson MD URINE ORDERABLES Final Resul t Performing Organization Address [facility] Co de Phone Number [address] [address] * Toxicology screen, urine (11/20/2024 1:34 PM EDT) URINE AMPHETAMINES Negative Negative [facility] URINE BENZODIAZEPINE Negative Negative [facility] URINE COCAINE METAB Negative Negative [facility] URINE OPIATES Negative Negative [facility] Comment:This assay is not se nsitive for detection of oxycodone and oxymorphone. URINE OXYCODONE Negative Negative [facility] Fentanyl, urine Negative Negative [facility] URINE CREATININE 73 mg/dL [facility] Urine (Urine) 11/20/2024 1:3 4 PM EDT 11/20/2024 1:58 PM EDT Monika Dawson MD URINE ORDERABLES Final Resul t Performing Organization Address [facility] Co de Phone Number [address] [address] * HCG, urine (11/20/2024 1:34 PM EDT) URINE TEST Negative Negative [facility] Urine (Urine) 11/20/2024 1:3 4 PM EDT 11/20/2024 1:53 PM EDT Monika Dawson MD URINE ORDERABLES Final Resul t Performing Organization Address [facility] de Phone Number [address] [address] * Troponin (11/20/2024 10:48 AM EDT) Only the most recent of2 resultswithin the time period is included. Troponin-T, HS Gen5 <6 0 - 9 ng/L [facility] Blood 11/20/2024 10:4 8 AM EDT 11/20/2024 11:02 AM EDT Monika Dawson MD LAB BLOOD ORDERABLES Final R esult Performing Organization Address [facility] Co de Phone Number [address] [address] * CT ANGIO ABDOMEN/PELVIS WITH AND WITHOUT CONTRAST (11/20/2024 10:11 AM EDT) MGB IMG BINDERY TECHNICIAN COMMENT incidental pulmonary noduls [facility] MGB IMG RECOMMENDATION COMMENT Focus of Incidental Pulmonary Nodule [facility] Anatomical Region Laterality Modality Abdomen, Abdominal Vasculature [...] initiated on 11/20/2024 10:54 AM, Message ID [id number]. ATTESTATION: I, Dr. Lico Douglas as teaching [...] of Incidental Pulmonary Nodule Follow-up . Bridget Mathews et al. Guidelines for Management of Incidental PulmonaryNodules Detected on CT Images: From the Fleischner Society 2017.Radiology. 2017 Aug;284(1):228- 243. A clinically significant result was initiated on 11/20/2024 10:54 AM,Message ID [id number]. ATTESTATION: Dr. Lico Hernandez as teaching physician, have reviewedthe images for this case and if necessary edited the report originallycreated by Yg Meyer. us Monika Dawson MD IMG CT ABD/PELVIS Final Resu lt * CT CHEST PULMONARY ANGIOGRAM (ACUTE) (11/20/2024 10:11 AM EDT) MGB IMG BINDERY TECHNICIAN COMMENT incidental pulmonary noduls [facility] Anatomical Region Laterality Modality Chest, Thoracic Vasculature [...] initiated on 11/20/2024 10:54 AM, Message ID [id number]. ATTESTATION: I, Dr. Lico Douglas as teaching [...] was initiated on 11/20/2024 10:54 AM,Message ID [id number]. ATTESTATION: I, Dr. Lico Douglas as teaching [...] clinician's provided indication for this examination in [facility]: * Cerebral hemorrhage suspected TECHNIQUE: CT of [...] clinician's provided indication for this examination in [facility]: *Cerebral hemorrhage suspected TECHNIQUE: CT of the [...] by Carlitos Browning. us Monika Dawson MD [facility] CT HEAD/NECK Final Resul t * ABO and Rh (11/20/2024 9:39 AM EDT) Expiration Date of Sample 11/23/2024 11:59 PM [facility] ABO O 11/20/2024 10:47 AM EDT [facility] Rh Positive 11/20/2024 10:47 AM EDT [facility] Resulting Agency [facility] 11/20/2024 9:39 AM EDT 11/20/2024 9:51 AM EDT Blood Bank BLOOD BANK TEST ORDERABLES Final Result Performing Organization Address City/[facility] Co de Phone Number [address] [address] * Type and Screen (ABO,Rh,Antibody Screen) (11/20/2024 9:39 AM EDT) Expiration Date of Sample 11/23/2024 11:59 PM [facility] ABO O 11/20/2024 10:47 AM EDT [facility] Rh Positive 11/20/2024 10:47 AM EDT [facility] Resulting Agency [facility] Antibody Screen Negative 11/20/2024 11:02 AM EDT [facility] Blood 11/20/2024 9:39 AM EDT 11/20/2024 9:51 AM EDT Monika Dawson MD BLOOD BANK TEST ORDERABLES F inal Result Performing Organization Address City/[facility] Co de Phone Number [address] [address] * (ABNORMAL) VENOUS BLOOD GAS PLUS (11/20/2024 9:36 AM EDT) FIO2 UNSPEC. FIO2/L min [facility] PH 7.43(H) 7.30 - 7.40 [facility] PCO2 38 38 - 50 mm[Hg] [facility] PO2 33(L) 35 - 50 mm[Hg] [facility] Base Excess, unspecified 0.3 0.0 - 3.0 mmol/L [facility] HCO3, unspecified 25 24 - 30 mmol/L [facility] SODIUM 142 135 - 145 mmol/L [facility] POTASSIUM 3.5 3.5 - 5.0 mmol/L [facility] IONIZED CALCIUM 1.11(L) 1.14 - 1.30 mmol/L [facility] Glucose, whole bld 133(H) 70 - 110 mg/dL [facility] HGB (BG) 11.0(L) 12.0 - 16.0 g/dl [facility] SO2-VENOUS (SO2, venous) 56.3(L) 60.0 - 85.0 % [facility] Blood 11/20/2024 9:36 AM EDT 11/20/2024 9:44 AM EDT Monika Dawson MD LAB BLOOD ORDERABLES Final R esult [address] [address] * LFTs (hepatic panel) (11/20/2024 9:36 AM EDT) ALBUMIN 4.3 3.3 - 5.0 g/dL [facility] TOTAL BILIRUBIN 0.2 0.0 - 1.0 mg/dL [facility] DIRECT BILIRUBIN 0.1 0.0 - 0.3 mg/dL [facility] ALKALINE PHOSPHATASE 74 30 - 100 U/L [facility] AST 16 9 - 32 U/L [facility] ALT 11 7 - 33 U/L [facility] TOTAL PROTEIN 7.4 6.0 - 8.3 g/dL [facility] GLOBULIN 3.1 1.9 - 4.1 g/dL [facility] Blood 11/20/2024 9:36 AM EDT 11/20/2024 9:47 AM EDT Monika Dawson MD LAB BLOOD ORDERABLES Final R esult [address] [address] * PT-INR (11/20/2024 9:36 AM EDT) PT 10.4 10.0 - 13.0 sec [facility] INR 0.9 0.9 - 1.1 [facility] Blood 11/20/2024 9:36 AM EDT 11/20/2024 9:48 AM EDT Monika Dawson MD LAB BLOOD ORDERABLES Final R esult [facility] [address] [place] [address] * (ABNORMAL) CBC and differential (11/20/2024 9:36 AM EDT) WBC 9.23 4.00 - 11.00 K/uL [facility] RBC 4.44 4.00 - 5.20 M/uL [facility] HGB 10.5(L) 12.0 - 16.0 g/dL [facility] HCT 34.3(L) 36.0 - 46.0 % [facility] PLT 509(H) 150 - 450 K/uL [facility] MCV 77.3(L) 80.0 - 100.0 fL [facility] MCH 23.6(L) 27.0 - 31.0 pg [facility] MCHC 30.6(L) 32.0 - 36.0 g/dL [facility] RDW 15.7(H) 11.5 - 14.5 % [facility] MPV 11.2 8.4 - 12.0 fL [facility] NRBC 0.00 0.00 /100 WBCs [facility] ABSOLUTE NRBC 0.00 0.00 K/uL [facility] DIFF METHOD Auto [facility] NEUTS 46.8(L) 48.0 - 76.0 % [facility] LYMPHS 42.9(H) 18.0 - 41.0 % [facility] MONOS 7.0 4.0 - 11.0 % [facility] EOS 2.2 0.0 - 5.0 % [facility] BASOS 0.8 0.0 - 1.5 % [facility] % IMMATURE GRANS 0.3 0.0 - 0.9 % [facility] ABSOLUTE NEUTS 4.32 1.92 - 7.60 K/uL [facility] ABSOLUTE LYMPHS 3.96 0.72 - 4.10 K/uL [facility] ABSOLUTE MONOS 0.65 0.16 - 1.10 K/uL [facility] ABSOLUTE EOS 0.20 0.00 - 0.50 K/uL [facility] ABSOLUTE BASOS 0.07 0.00 - 0.15 K/uL [facility] ABS IMMATURE GRANS 0.03 0.00 - 0.09 K/uL [facility] Blood 11/20/2024 9:36 AM EDT 11/20/2024 9:47 AM EDT Result [facility] Monika Dawson MD LAB BLOOD ORDERABLES Final R esult Performing Organization Address [facility] Co de Phone Number [address] [address] * NT-proBNP (11/20/2024 9:36 AM EDT) NT-PROBNP 50 0 - 450 pg/mL [facility] Comment: Reference Range: Age <50 years: [...] ORDERABLES Final R esult Performing Organization Address [facility] Co de Phone Number [address] [address] * Magnesium (11/20/2024 9:36 AM EDT) MAGNESIUM 1.9 1.7 - 2.4 mg/dL [facility] Blood 11/20/2024 9:36 AM EDT 11/20/2024 9:47 AM EDT Monika Dawson MD LAB BLOOD ORDERABLES Final R esult [address] [address] * Lipase (11/20/2024 9:36 AM EDT) LIPASE 23 13 - 60 U/L [facility] Blood 11/20/2024 9:36 AM EDT 11/20/2024 9:47 AM EDT Monika Dawson MD LAB BLOOD ORDERABLES Final R esult Performing Organization Address [facility] Co de Phone Number [address] [address] * (ABNORMAL) Basic metabolic panel (11/20/2024 9:36 AM EDT) SODIUM 139 135 - 145 mmol/L [facility] POTASSIUM 3.6 3.4 - 5.0 mmol/L [facility] CHLORIDE 105 98 - 108 mmol/L [facility] CO2 22(L) 23 - 32 mmol/L [facility] BUN 16 8 - 25 mg/dL [facility] CREATININE 0.75 0.50 - 1.00 mg/dL [facility] GLUCOSE 134(H) 70 - 110 mg/dL [facility] CALCIUM 9.1 8.5 - 10.5 mg/dL [facility] EGFR 99 >59 mL/min/1. 73m2 [facility] Comment:Estimated glomerular filtration rate calculated using the CKD-EPI refit equation. ANION GAP 12 3 - 17 mmol/L [facility] Blood 11/20/2024 9:36 AM EDT 11/20/2024 9:47 AM EDT Monika Dawson MD LAB BLOOD ORDERABLES Final R esult Performing Organization Address City/[facility] Co de Phone Number [address] [address] from Last 3 Months Insurance [facility] [employer] Care Teams Box Spring Frame Builder Relationship Specialty Start Date End Date Nikhil Alex FNP [facility] [place] [phone] PCP - General Nurse Practitioner 05/02/23 Additional Source Comments The information contained in this document represents components of the legal health record. It is not the complete legal health record.[facility]
--- OUTSIDE RECORDS SUMMARY | 2024-12-06 13:23 | XMS_ITS | Clinical Summary ---
Author Organization [employer] Address [address] [address] [place] [address] Care Team Providers Care Transformer Assembly Supervisor Name Role Phone Unavailable Primary Care Provider [...] (10/26/2024 8:05 AM EDT) Urine NEGATIVE NEGATIVE [facility] Comment:This test was develo ped to detect early . Falsenegative results may occur after the 5th - 7th week ofpregnancy when using this test method. If clinicallyindicated, consider a serum hCG. 10/26/2024 8:05 AM EDT 10/26/2024 8:16 AM EDT us Generic External Data Provider LAB URINE ORDERAB LES Final Result [facility] [address] [place] [phone] from Last 3 Months
--- OUTSIDE RECORDS SUMMARY | 2024-12-06 13:23 | XMS_ITS | Encounter Summary ---
Author Organization [employer] [facility] Address [address] [place] [address] Phone Care Team Providers Care [employer] Name Role Phone Abi Nikhil MARTINEZ Primary Care Provider [phone] Encounter Details Date Type Department Care Team (Late st Contact Info) Description 11/20/2024 Procedure Pass [facility] Emergency Imaging, [address] [place] [address] Social History Tobacco Use Types Packs/Day Years [...] on filedocumented in this encounter Care Teams [employer] Relationship Specialty Start Date End Date Nikhil Alex FNP [address] [place] [address] PCP - General Nurse Practitioner 05/02/23 documented as of this encounter Additional Source Comments The information contained in this document represents components of the legal health record. It is not the complete legal health record.[facility]
--- OUTSIDE RECORDS SUMMARY | 2024-12-06 13:23 | XMS_ITS | Clinical Summary ---
Author Organization [facility] Address [address] [place] [address] Phone Care Team Providers Care Nonprofit Manager Name Role Phone Ailyn Velázquez MD Primary [...] Gynecology - [address] [place] [phone] Cathy Mckeon CNM Abnormal uterine bleeding (AUB) (Primary Dx) 11/21/2024 Results Follow-Up Obstetrics and Gynecology - [address] [place] [phone] Ashanti Kelley DO 11/16/2024 10:30 AM EDT Office Visit [facility]st[facility]s [facility] [address] [facility] [address] [place] [phone] Ashanti Kelley DO Abnormal uterine bleeding (Primary [...] Preservative Free, Injectable 12/16/2012 PPD Test 04/09/2020,03/06/2015 Celect SARS-CoV-2 COVID-19, mRNA, LNP-S, preservative free 12/07/2020,11/07/2020 Pneumococcal polysaccharide 23 valent (Pneumovax 23) 2yo and older 07/22/2016 Td Tetanus diptheria (Tdvax) 7yo and older 04/05 Tdap Tetanus diptheria acell ular pertussis (Boostrix; Adacel) 7yo and older 10/27/2022 Surgical History Surgery Date Site/Laterality Comments TUBAL LIGATION PROCEDURE: HISTORICAL TUBAL LIGATION SECTION x4 BELT ABDOMINOPLASTY Medical History Medical History Date Comments Stroke due to embolism ([facility] V24, [facility] V28) DX:Stroke due to embolism ([facility]); [...] Procedure Name Priority Date/Time Associated Diagnosis Comments WY ENDOMETRIAL SAMPLING W/WO ENDOCERVICAL SAMPLING W/O CERVICAL [...] Recently Relevant to Health Maintenance Results * [place] ENDOMETRIAL SAMPLING W/WO ENDOCERVICAL SAMPLING W/O CERVICAL [...] or neoplasm identified 11/17/2024 10:47 AM EDT [facility] Clinical Information Abnormal uterine bleeding (N93.9) 11/17/2024 10:47 AM EDT [facility] Gross Description A. Endometrium, biopsy: Labeled Endo and EMB on the top of the lid . Received in formalin is a 2.9 x 2.0 x 0.3 cm aggregate of soft, bueno-red tissue fragments and predominating blood clot, which is wrapped in paper and submitted in toto in one cassette, multiple pieces, x 2. TS 11/17/2024 10:47 AM EDT [facility] Disclaimer Unless otherwise specified, all tissue is 10% NB formalin fixed and paraffin embedded. 11/17/2024 10:47 AM EDT [facility] Tissue Endometrial structure / Unknown Non-blood Collection / Unknown 11/16/2024 11:02 AM EDT 11/16/2024 11:02 AM EDT Ashanti Kelley DO LAB PATHOLOGY ORDERABLES Alis l Result Performing Organization Address City/[facility]/ZIP Co de Phone Number [facility] [address] [place] [address], * HPV with reflex genotype (06/23/2024 1:43 PM EDT) Pathologist [facility] HPV Negative Negative LAB MICROBIOLOGY METHOD 06/26/2024 3:58 PM EDT [facility] Brushing/Spatula Cervix uteri structure / Unknown 06/23/2024 1:43 PM EDT 06/26/2024 6:27 AM EDT Cathy Mckeon CNM LAB MOLECULAR DIAGNOSTICS ORD ERABLES Final Result [facility] [address] [place] [address], [place] [phone] * MG Mammo Digital Diagnostic bilat (02/10/2024 2:29 PM EST) Anatomical Region Laterality Modality Breast Bilateral Mammography Historical Provider MD ORTIZ BI PROCEDURES Final R esult * Annual BMP Blood Test (10/27/2022) Pathologist [facility] Annual BMP Blood Test Abstracted Historical Provider [...] [facility] MEDICAID ADVANTAGE [address] [place] [address] Advance Directives Documents on File Type Date Recorded Patient Interventional Physiatrist Expl anation Health Care Decision (hx) 03/21/2016 AD LENNON DIRECTIVE Health Care Decision (hx) 03/21/2016 AD LENNON DIRECTIVE Health Care Decision (hx) 03/21/2016 AD LENNON DIRECTIVE Care Teams Nonprofit Manager Relationship Specialty Start Date End Date Ailyn Velázquez MD [address] [facility] [address] [place] [address] PCP - General 10/07/23
--- OUTSIDE RECORDS SUMMARY | 2024-12-06 13:23 | XMS_ITS | Clinical Summary ---
Author Organization [facility] Address [address] [place] [address] Care Team Providers Care Certified Welder Name Role Phone Becky Gutierrez PA-C Primary Care Provider [phone] Source Comments PLEASE NOTE, if this patient [...] 09/23/2021, 08/0 03/2021, 10/31/2019, Additional history exists [id number] ( season) 10/23/202412/07/ 021, 11/07/2020 Imm-Influenza (#1) [...] EDT) 11/20/2024 3:00 AM EDT Nikhil Alex [employer] WINDOWS ENGINEER SCAN IMAGING Final Result * Screening MAMMO (11/13/2022 3:00 AM EDT) 11/13/2022 3:00 AM EDT Becky Gutierrez PA-C IMG MAMMO Edited Resul t - Final * (ABNORMAL) LIPID PANEL (10/27/2022 9:22 AM EDT) CHOLESTEROL, TOTAL 224(H) <200 mg/dL [facility] HDL CHOLESTEROL 58 > OR = 50 mg/dL [facility] [place] [employer] TRIGLYCERIDES 114 <150 mg/dL [facility] LDL-CHOLESTEROL 143(H) 99 mg/dL (calc) [facility] Comment: Reference range: <100 Desirable range <100 mg/dL for primary prevention; <70 mg/dL for patients with CHD or diabetic patients with > or = 2 CHD risk factors. LDL-C is now calculated using the Morro-Laws calculation, which is a validated novel method providing better accuracy than the Friedewald equation in the estimation of LDL-C. Morro SS et al. JESE. 2013;310(19): 1945-0995 (http://education.[employer]/faq/UBW831) CHOL/HDLC RATIO 3.9 <5.0 (calc) [facility] NON-HDL CHOLESTEROL 166(H) <130 mg/dL (calc) [facility] Comment: For patients with diabetes plus 1 major ASCVD risk factor, treating to a non-HDL-C goal of <100 mg/dL (LDL-C of <70 mg/dL) is considered a therapeutic option. Blood Blood / Unknown 10/27/2022 9 :22 AM EDT 10/27/2022 9:22 AM EDT Narrative [facility] - 10/28/2022 4:56 PM EDT FASTING:YES Becky Lukin PA-C LAB - BLOOD DRAW Final Resul t Performing Organization Address [facility] Co de Phone Number [facility] [address] [address], [facility] [address] [address] * HIV 1/2 AG & AB W/RFLX (4TH GEN) (03/03/2022 8:45 AM EST) HIV AG/AB, 4TH GEN NON-REAC TIVE NON-REAC TIVE [employer] [facility] Comment: HIV-1 antigen and HIV-1/HIV-2 [...] purpose. For additional information please refer to http://education.[employer]/faq/WVG935 (This link is being provided for informational/ educational purposes only.) The performance of this assay has not been clinically validated in patients less than 2 years old. Blood Blood / Unknown 03/03/2022 8 :45 AM EST 03/03/2022 8:46 AM EST Becky Gutierrez PA-C LAB - BLOOD DRAW Final Resul t Performing Organization Address [facility] Co de Phone Number [facility] [address] [address], [employer] [address] ([address]) [place] [address] * HEPATITIS C AB W/RFLX HCV RNA, QT, RT PCR (01/27/2022 8:44 AM EST) HEPATITIS C ANTIBODY NON-REACT MERRY NON-REACT MERRY [employer] [facility] SIGNAL TO CUT-OFF 0.08 <1.00 [facility] Comment: HCV antibody was non-reactive. There is no laboratory evidence of HCV infection. In most cases, no further action is required. However, if recent HCV exposure is suspected, a test for HCV RNA (test code 64792) is suggested. For additional information please refer to http://education.Every[employer]/faq/XCA65m9 (This link is being provided for informational/ educational purposes only.) Blood Blood / Unknown 01/27/2022 8 :44 AM EST 01/27/2022 8:45 AM EST Becky Gutierrez PA-C LAB - BLOOD DRAW Edited Resu lt - Final Performing Organization Address City/[facility]/ZIP Co de Phone Number [facility] [address] [address], [facility] [address] [address] * PAP SMEAR W/HPV (09/23/2021 10:00 AM EDT) PAP SMEAR INTERPRETATION NORMAL NORMAL [facility] HPV (HUMAN PAPILLOMA) NEGATIVE NEGATIVE [facility] HPV TYPE 16 NEGATIVE NEGATIVE [facility] HPV TYPE 18 NEGATIVE NEGATIVE [facility] Swab 09/23/2021 10:0 0 AM EDT Impressions [facility] - 03/02/2022 1:34 PM EST Negative for squamous intraepithelial lesion and malignancy Fungal organisms morphologically consistent with Sharita spp. High risk HPV assay: Negative Provider [facility] - PATHOLOGY AND CYTOLOGY AMB ULATORY Final Result [facility] [address] [place] [address], * PAP W/ HPV (09/23/2021 3:00 AM EDT) 09/23/2021 3:00 AM EDT us Becky Gutierrez PA-C LAB - PATHOLOGY AND CYTOLOGY AMBULATORY Final Result from Last 3 Months or Most Recently Relevant to Health Maintenance Insurance C[facility] A[facility] Care Teams Certified Welder Relationship Specialty Start Date End Date Becky Gutierrez PA-C [address] [place] [address] PCP - General Internal Medicine 10/20/17
--- OUTSIDE RECORDS SUMMARY | 2024-12-06 13:23 | XMS_ITS | Encounter Summary ---
Author Organization [employer] Address [address] [place] [address] Care Team Providers Care Streaming Media Specialist Name Role Phone Ailyn Velázquez MD Primary Care Provider + Encounter Details Date Type Department Care Team (Late st Contact Info) Description 11/21/2024 Results Follow-Up Obstetrics and Gynecology - [address] [place], [place] [phone] Ashanti Kelley DO [address] [place], [place] Social History Tobacco Use Types Packs/Day [...] on filedocumented in this encounter Care Teams Streaming Media Specialist Relationship Specialty Start Date End Date Ailyn Velázquez MD [address] [facility] [address] [place] [address] PCP - General 10/07/23 documented as of this encounter
== END 2024-12-06 14:17 | disposition home or self-care (01) ==
LOC: HO.HGI 10:56
PROVIDERS: PCP Internal Medicine; Visit Provider Internal Medicine
DX: K62.5 Hemorrhage of anus and rectum (principal); D64.9 Anemia, unspecified; K29.70 Gastritis, unspecified, without bleeding
CPT/HCPCS: 99214

== ENCOUNTER → 2024-12-06 10:56 | Outpatient (BNVA) | payer OTHER, SELFPAY | PROVIDERS: PCP Internal Medicine; Visit Provider Internal Medicine | DX: K62.5 Hemorrhage of anus and rectum (principal); K29.70 Gastritis, unspecified, without bleeding; D64.9 Anemia, unspecified | CPT/HCPCS: 99212 ==

== ENCOUNTER 2024-12-29 06:47 | Day surgery (SDC) | payer OTHER, SELFPAY ==
--- OUTSIDE RECORDS SUMMARY | 2024-12-08 12:30 | XMS_ITS | Clinical Summary ---
Author Organization [facility] Address [address] [place] [address] Phone Care Team Providers Care Banking Manager Name Role Phone Ailyn Velázquez MD [...] Gynecology - [address] [place] [phone] Cathy Mckeon CNM Abnormal uterine bleeding (AUB) (Primary Dx) 11/21/2024 Results Follow-Up Obstetrics and Gynecology - [address] [place] [phone] Ashanti Kelley DO 11/16/2024 10:30 AM EDT Office Visit Obstetrics and [facility]necology [facility] [place] [facility] [address] [place] [phone] Ashanti Kelley DO Abnormal uterine bleeding (Primary [...] Preservative Free, Injectable 12/16/2012 PPD Test 04/09/2020,03/06/2015 [employer] SARS-CoV-2 COVID-19, mRNA, LNP-S, preservative free 12/07/2020,11/07/2020 Pneumococcal polysaccharide 23 valent (Pneumovax 23) 2yo and older 07/22/2016 Td Tetanus diptheria (Tdvax) 7yo and older 04/05 Tdap Tetanus diptheria acell ular pertussis (Boostrix; Adacel) 7yo and older 10/27/2022 Surgical History Surgery Date Site/Laterality Comments TUBAL LIGATION PROCEDURE: HISTORICAL TUBAL LIGATION SECTION x4 BELT ABDOMINOPLASTY Medical History Medical History Date Comments Stroke due to embolism ([facility] V24, [facility] V28) DX:Stroke due to embolism [...] Procedure Name Priority Date/Time Associated Diagnosis Comments [place] ENDOMETRIAL SAMPLING W/WO ENDOCERVICAL SAMPLING W/O CERVICAL [...] Recently Relevant to Health Maintenance Results * [place] ENDOMETRIAL SAMPLING W/WO ENDOCERVICAL SAMPLING W/O CERVICAL [...] uterine bleeding (N93.9) 11/17/2024 10:47 AM EDT [facility]) [facility] Gross Description A. Endometrium, biopsy: Labeled [...] ORDERABLES Alis l Result Performing Organization Address City/[facility]/ZIP Co de Phone Number [facility] [address] [place] [address], * HPV with reflex genotype (06/23/2024 1:43 PM EDT) Pathologist [facility] HPV Negative Negative LAB MICROBIOLOGY METHOD 06/26/2024 3:58 PM EDT [facility] Brushing/Spatula Cervix uteri structure / Unknown 06/23/2024 1:43 PM EDT 06/26/2024 6:27 AM EDT Cathy Mckeon CNM LAB MOLECULAR DIAGNOSTICS ORD ERABLES Final Result [facility] [address] [place] [address], [place] [phone] * MG Mammo Digital Diagnostic bilat (02/10/2024 2:29 PM EST) Anatomical Region Laterality Modality Breast Bilateral Mammography Historical Provider MD ORTIZ BI PROCEDURES Final R esult * Annual BMP Blood Test (10/27/2022) Pathologist [facility] Annual BMP Blood Test Abstracted Historical [...] Most Recently Relevant to Health Maintenance Insurance 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
--- OUTSIDE RECORDS SUMMARY | 2024-12-08 12:30 | XMS_ITS | Encounter Summary ---
Author Organization [facility] Address [address] [place] [address] Care Team Providers Care Clay Press Operator Name Role Phone Ailyn Velázquez MD Primary Care Provider + Encounter Details Date Type Department Care Team (Late st Contact Info) Description 11/21/2024 Results Follow-Up Obstetrics and Gynecology - [address] [place], [place] [phone] Ashanti Kelley DO [address] [place], [place] Social History Tobacco Use Types Packs/Day [...] on filedocumented in this encounter Care Teams Clay Press Operator Relationship Specialty Start Date End Date Ailyn Velázquez MD [address] [facility] [address] [place] [address] PCP - General 10/07/23 documented as of this encounter
--- OUTSIDE RECORDS SUMMARY | 2024-12-08 12:30 | XMS_ITS | Clinical Summary ---
Author Organization [facility] Address [address] [employer] [facility] [address] [place] [address] Phone Care Team Providers Care Antique Furniture Repairer Name Role Phone Nikhil Alex MICHELLE Primary Care Provider Allergies Active Allergy Reactions Criticality Noted Date Comments Tramadol Swelling High 05/02/2023 Medications No known medications Active Problems Problem Noted Date Diagnosed Date Syncope 11/20/2024 Encounters Date Type Department Care Team Description 11/20/2024 9:35 AM EDT Ancillary Procedure [facility] Imaging Bedside Ultrasound VRT [address] [place] [address] Monika Dawson MD 11/20/2024 9:31 AM EDT - 11/20/2024 8:48 PM EDT Hospital Encounter [facility] Emergency Dept [address] [place] [address] Monika Dawson MD Huang, Calvin K, MD, MPH Discharge Disposition: Home or Self Care 11/20/2024 Procedure Pass [facility] Emergency Imaging, [facility] [address] [facility] [address], Floor 1 [place] [address] 11/20/2024 Procedure Pass [facility] Emergency Imaging, [facility] [address], Floor 1 [place] [address] 11/20/2024 Procedure Pass [facility] Emergency Imaging, [facility] [address], [address] 1 [place] [address] from Last 3 Months Social History Tobacco [...] ACID (MMOL/L) 1.2 0.5 - 2.0 mmol/L [facility] Blood 11/20/2024 5:48 PM EDT 11/20/2024 6:02 PM EDT Monika Dawson MD LAB BLOOD ORDERABLES Final R esult [address] [address] * ECG 12-LEAD (11/20/2024 2:10 PM EDT) Only the most recent of2 resultswithin the time period is included. Systolic Blood Pressure 147 mmHg [facility] Diastolic Blood Pressure 66 mmHg [facility] Ventricular Rate EKG/MIN 61 BPM [facility] Atrial Rate 61 BPM [facility] IL Interval 170 ms [facility] QRS Duration 74 ms [facility] QT Interval 414 ms [facility] QTC Interval 416 ms [facility] P [place] 42 degrees [facility] R Wave [place] 59 degrees [facility] T Wave [place] 49 degrees [facility] 11/20/2024 2:10 PM EDT [...] EDT) RBC 0-2 0 - 2 /hpf [facility] WBC <10 <10 /hpf [facility] Comment:0 to 2 WBC's per hpf SQUAMOUS CELLS Present(A ) None /hpf [facility] BACTERIA 1+(A) None /hpf [facility] MUCUS Present(A ) None [facility] 11/20/2024 1:34 PM EDT 11/20/2024 1:52 PM EDT Ashanti Gallagher MD URINE ORDERABLES Final Result Performing Organization Address [facility] de Phone Number [address] [address] * (ABNORMAL) Urinalysis w/reflex Urine Culture (11/20/2024 1:34 PM EDT) COLOR Yellow Yellow [facility] CLARITY Clear Clear [facility] GLUCOSE Negative Negative [facility] BILI Negative Negative [facility] KETONES Negative Negative [facility] SPECIFIC GRAVITY >1.040(H) 1.001 - 1.035 [facility] BLOOD 3+(A) Negative [facility] PH 6.5 5.0 - 9.0 [facility] Protein-UA Negative Negative [facility] UROBILINOGEN Negative Negative [facility] NITRITE Negative Negative [facility] Leukocyte esterase, ur Negative Negative [facility] Urine (Urine) 11/20/2024 1:3 4 PM EDT 11/20/2024 1:52 PM EDT Monika Dawson MD URINE ORDERABLES Final Resul t Performing Organization Address [facility] Co de Phone Number [address] [address] * Toxicology screen, urine (11/20/2024 1:34 PM EDT) URINE AMPHETAMINES Negative Negative [facility] URINE BENZODIAZEPINE Negative Negative [facility] URINE COCAINE METAB Negative Negative [facility] URINE OPIATES Negative Negative [facility] Comment:This assay is not se nsitive for detection of oxycodone and oxymorphone. URINE OXYCODONE Negative Negative [facility] Fentanyl, urine Negative Negative [facility] URINE CREATININE 73 mg/dL [facility] Urine (Urine) 11/20/2024 1:3 4 PM EDT 11/20/2024 1:58 PM EDT Monika Dawson MD URINE ORDERABLES Final Resul t Performing Organization Address [facility] Co de Phone Number [address] [address] * HCG, urine (11/20/2024 1:34 PM EDT) URINE TEST Negative Negative [facility] Urine (Urine) 11/20/2024 1:3 4 PM EDT 11/20/2024 1:53 PM EDT Monika Dawson MD URINE ORDERABLES Final Resul t Performing Organization Address [facility] de Phone Number [address] [address] * Troponin (11/20/2024 10:48 AM EDT) Only the most recent of2 resultswithin the time period is included. Troponin-T, HS Gen5 <6 0 - 9 ng/L [facility] Blood 11/20/2024 10:4 8 AM EDT 11/20/2024 11:02 AM EDT Monika Dawson MD LAB BLOOD ORDERABLES Final R esult Performing Organization Address [facility] Co de Phone Number [address] [address] * CT ANGIO ABDOMEN/PELVIS WITH AND WITHOUT CONTRAST (11/20/2024 10:11 AM EDT) MGB IMG AGENCY LEGAL COUNSEL COMMENT incidental pulmonary noduls [facility] MGB IMG RECOMMENDATION COMMENT Focus of Incidental Pulmonary Nodule [facility] Anatomical Region Laterality Modality Abdomen, Abdominal Vasculature [...] initiated on 11/20/2024 10:54 AM, Message ID [id number]. ATTESTATION: I, Dr. Lico Douglsa as teaching physician, have reviewed the images [...] was initiated on 11/20/2024 10:54 AM,Message ID [id number]. ATTESTATION: Dr. Lico Hernandez as teaching physician, have reviewedthe images for this case and if necessary edited the report originallycreated by Yg Meyer. us Monika Dawson MD IMG CT ABD/PELVIS Final Resu lt * CT CHEST PULMONARY ANGIOGRAM (ACUTE) (11/20/2024 10:11 AM EDT) MGB IMG AGENCY LEGAL COUNSEL COMMENT incidental pulmonary noduls [facility] Anatomical Region Laterality Modality Chest, Thoracic Vasculature [...] initiated on 11/20/2024 10:54 AM, Message ID [id number]. ATTESTATION: I, Dr. Lico Douglas as teaching [...] was initiated on 11/20/2024 10:54 AM,Message ID [id number]. ATTESTATION: I, Dr. Lico Douglas as teaching [...] clinician's provided indication [facility]: * Cerebral hemorrhage suspected TECHNIQUE: [...] clinician's provided indication for this examination [facility]: *Cerebral hemorrhage suspected TECHNIQUE: CT [...] by Carlitos Browning. us Monika Dawson MD [facility] CT HEAD/NECK Final Resul t * ABO and Rh (11/20/2024 9:39 AM EDT) Expiration Date of Sample 11/23/2024 11:59 PM [facility] ABO O 11/20/2024 10:47 AM EDT [facility] Rh Positive 11/20/2024 10:47 AM EDT [facility] Resulting Agency [facility] 11/20/2024 9:39 AM EDT 11/20/2024 9:51 AM EDT Blood Bank BLOOD BANK TEST ORDERABLES Final Result Performing Organization Address [facility] Co de Phone Number [address] [address] * Type and Screen (ABO,Rh,Antibody Screen) (11/20/2024 9:39 AM EDT) Expiration Date of Sample 11/23/2024 11:59 PM [facility] ABO O 11/20/2024 10:47 AM EDT [facility] Rh Positive 11/20/2024 10:47 AM EDT [facility] Resulting Agency [facility] Antibody Screen Negative 11/20/2024 11:02 AM EDT [facility] Blood 11/20/2024 9:39 AM EDT 11/20/2024 9:51 AM EDT Monika Dawson MD BLOOD BANK TEST ORDERABLES F inal Result Performing Organization Address [facility] Co de Phone Number [address] [address] * (ABNORMAL) VENOUS BLOOD GAS PLUS (11/20/2024 9:36 AM EDT) FIO2 UNSPEC. FIO2/L min [facility] PH 7.43(H) 7.30 - 7.40 [facility] PCO2 38 38 - 50 mm[Hg] [facility] PO2 33(L) 35 - 50 mm[Hg] [facility] Base Excess, unspecified 0.3 0.0 - 3.0 mmol/L [facility] HCO3, unspecified 25 24 - 30 mmol/L [facility] SODIUM 142 135 - 145 mmol/L [facility] POTASSIUM 3.5 3.5 - 5.0 mmol/L [facility] IONIZED CALCIUM 1.11(L) 1.14 - 1.30 mmol/L [facility] Glucose, whole bld 133(H) 70 - 110 mg/dL [facility] HGB (BG) 11.0(L) 12.0 - 16.0 g/dl [facility] SO2-VENOUS (SO2, venous) 56.3(L) 60.0 - 85.0 % [facility] Blood 11/20/2024 9:36 AM EDT 11/20/2024 9:44 AM EDT Monika Dawson MD LAB BLOOD ORDERABLES Final R esult [address] [address] * LFTs (hepatic panel) (11/20/2024 9:36 AM EDT) ALBUMIN 4.3 3.3 - 5.0 g/dL [facility] TOTAL BILIRUBIN 0.2 0.0 - 1.0 mg/dL [facility] DIRECT BILIRUBIN 0.1 0.0 - 0.3 mg/dL [facility] ALKALINE PHOSPHATASE 74 30 - 100 U/L [facility] AST 16 9 - 32 U/L [facility] ALT 11 7 - 33 U/L [facility] TOTAL PROTEIN 7.4 6.0 - 8.3 g/dL [facility] GLOBULIN 3.1 1.9 - 4.1 g/dL [facility] Blood 11/20/2024 9:36 AM EDT 11/20/2024 9:47 AM EDT Monika Dawson MD LAB BLOOD ORDERABLES Final R esult [address] [address] * PT-INR (11/20/2024 9:36 AM EDT) PT 10.4 10.0 - 13.0 sec [facility] INR 0.9 0.9 - 1.1 [facility] Blood 11/20/2024 9:36 AM EDT 11/20/2024 9:48 AM EDT Monika Dawson MD LAB BLOOD ORDERABLES Final R esult [facility] [address] [place] [address] * (ABNORMAL) CBC and differential (11/20/2024 9:36 AM EDT) WBC 9.23 4.00 - 11.00 K/uL [facility] RBC 4.44 4.00 - 5.20 M/uL [facility] HGB 10.5(L) 12.0 - 16.0 g/dL [facility] HCT 34.3(L) 36.0 - 46.0 % [facility] PLT 509(H) 150 - 450 K/uL [facility] MCV 77.3(L) 80.0 - 100.0 fL [facility] MCH 23.6(L) 27.0 - 31.0 pg [facility] MCHC 30.6(L) 32.0 - 36.0 g/dL [facility] RDW 15.7(H) 11.5 - 14.5 % [facility] MPV 11.2 8.4 - 12.0 fL [facility] NRBC 0.00 0.00 /100 WBCs [facility] ABSOLUTE NRBC 0.00 0.00 K/uL [facility] DIFF METHOD [employer] [facility] NEUTS 46.8(L) 48.0 - 76.0 % [facility] LYMPHS 42.9(H) 18.0 - 41.0 % [facility] MONOS 7.0 4.0 - 11.0 % [facility] EOS 2.2 0.0 - 5.0 % [facility] BASOS 0.8 0.0 - 1.5 % [facility] % IMMATURE GRANS 0.3 0.0 - 0.9 % [facility] ABSOLUTE NEUTS 4.32 1.92 - 7.60 K/uL [facility] ABSOLUTE LYMPHS 3.96 0.72 - 4.10 K/uL [facility] ABSOLUTE MONOS 0.65 0.16 - 1.10 K/uL [facility] ABSOLUTE EOS 0.20 0.00 - 0.50 K/uL [facility] ABSOLUTE BASOS 0.07 0.00 - 0.15 K/uL [facility] ABS IMMATURE GRANS 0.03 0.00 - 0.09 K/uL [facility] Blood 11/20/2024 9:36 AM EDT 11/20/2024 9:47 AM EDT Result [facility] Monika Dawson MD LAB BLOOD ORDERABLES Final R esult Performing Organization Address [facility] Co de Phone Number [address] [address] * NT-proBNP (11/20/2024 9:36 AM EDT) NT-PROBNP 50 0 - 450 pg/mL [facility] Comment: Reference Range: Age <50 years: 0-450 [...] ORDERABLES Final R esult Performing Organization Address [facility] Co de Phone Number [address] [address] * Magnesium (11/20/2024 9:36 AM EDT) MAGNESIUM 1.9 1.7 - 2.4 mg/dL [facility] Blood 11/20/2024 9:36 AM EDT 11/20/2024 9:47 AM EDT Monika Dawson MD LAB BLOOD ORDERABLES Final R esult [address] [address] * Lipase (11/20/2024 9:36 AM EDT) LIPASE 23 13 - 60 U/L [facility] Blood 11/20/2024 9:36 AM EDT 11/20/2024 9:47 AM EDT Monika Dawson MD LAB BLOOD ORDERABLES Final R esult Performing Organization Address [facility] Co de Phone Number [address] [address] * (ABNORMAL) Basic metabolic panel (11/20/2024 9:36 AM EDT) SODIUM 139 135 - 145 mmol/L [facility] POTASSIUM 3.6 3.4 - 5.0 mmol/L [facility] CHLORIDE 105 98 - 108 mmol/L [facility] CO2 22(L) 23 - 32 mmol/L [facility] BUN 16 8 - 25 mg/dL [facility] CREATININE 0.75 0.50 - 1.00 mg/dL [facility] GLUCOSE 134(H) 70 - 110 mg/dL [facility] CALCIUM 9.1 8.5 - 10.5 mg/dL [facility] EGFR 99 >59 mL/min/1. 73m2 [facility] Comment:Estimated glomerular filtration rate calculated using the CKD-EPI refit equation. ANION GAP 12 3 - 17 mmol/L [facility] Blood 11/20/2024 9:36 AM EDT 11/20/2024 9:47 AM EDT Monika Dawson MD LAB BLOOD ORDERABLES Final R esult Performing Organization Address [facility] Co de Phone Number [address] [address] from Last 3 Months Insurance [facility] Care Teams Antique Furniture Repairer Relationship Specialty Start Date End Date Nikhil Alex FNP [facility] [place] [phone] PCP - General Nurse Practitioner 05/02/23 Additional Source Comments The information contained in this document represents components of the legal health record. It is not the complete legal health record.[facility]
--- OUTSIDE RECORDS SUMMARY | 2024-12-08 12:30 | XMS_ITS | Encounter Summary ---
Author Organization [facility] Address [address] [place] [address] Phone Care Team Providers Care Coke Loader Name Role Phone Abi Nikhil MARTINEZ Primary Care Provider [phone] Encounter Details Date Type Department Care Team (Late st Contact Info) Description 11/20/2024 Procedure Pass [facility] Emergency Imaging, [address], [address] [place] [address] Social History Tobacco Use Types Packs/Day Years [...] on filedocumented in this encounter Care Teams Coke Loader Relationship Specialty Start Date End Date Nikhil Alex FNP [address] [place] [address] PCP - General Nurse Practitioner 05/02/23 documented as of this encounter Additional Source Comments The information contained in this document represents components of the legal health record. It is not the complete legal health record.[facility]
--- OUTSIDE RECORDS SUMMARY | 2024-12-08 12:30 | XMS_ITS | Clinical Summary ---
Author Organization [employer] Address [address] [facility] [address]t [place] [address] Care Team Providers Care Equipment Tester Name Role Phone Unavailable Primary Care Provider [...] (10/26/2024 8:05 AM EDT) Urine NEGATIVE NEGATIVE [facility] Comment:This test was develo ped to detect early . Falsenegative results may occur after the 5th - 7th week ofpregnancy when using this test method. If clinicallyindicated, consider a serum hCG. 10/26/2024 8:05 AM EDT 10/26/2024 8:16 AM EDT us Generic External Data Provider LAB URINE ORDERAB LES Final Result [facility] [address] [place] [phone] from Last 3 Months
--- OUTSIDE RECORDS SUMMARY | 2024-12-08 12:30 | XMS_ITS | Encounter Summary ---
Author Organization [facility] Address [address] [place] [address] Phone Care Team Providers Care Printed Circuit Designer Name Role Phone Abi Nikhil MARTINEZ Primary Care Provider [phone] Encounter Details Date Type Department Care Team (Late st Contact Info) Description 11/20/[address] [facility] [place] Imaging, [address] [place] [address] Social History Tobacco Use Types Packs/Day Years [...] on filedocumented in this encounter Care Teams Printed Circuit Designer Relationship Specialty Start Date End Date Nikhil Alex FNP [address] [place] [address] PCP - General Nurse Practitioner 05/02/23 documented as of this encounter Additional Source Comments The information contained in this document represents components of the legal health record. It is not the complete legal health record.[facility]
--- OUTSIDE RECORDS SUMMARY | 2024-12-08 12:30 | XMS_ITS | Encounter Summary ---
Author Organization [facility] Address [address] [place] [address] Phone Care Team Providers Care Industrial Analyst Name Role Phone Abi Nikhil MARTINEZ Primary Care Provider Encounter Details Date Type Department Care Team (Late st Contact Info) Description 11/20/2024 Procedure Pass [facility] Emergency Imaging, [address] [place] [address] Social History Tobacco Use Types Packs/Day Years [...] on filedocumented in this encounter Care Teams Industrial Analyst Relationship Specialty Start Date End Date Nikhil Alex FNP [address] [place] [address] PCP - General Nurse Practitioner 05/02/23 documented as of this encounter Additional Source Comments The information contained in this document represents components of the legal health record. It is not the complete legal health record.[facility]
--- OUTSIDE RECORDS SUMMARY | 2024-12-08 12:31 | XMS_ITS | Clinical Summary ---
Author Organization [facility] Address [address] [place] [address] Care Team Providers Care Nutrition Services Worker Name Role Phone Becky Gutierrez PA-C Primary [...] Date Last Done Comments Anxiety Screening 1975 HPV Screening (self-collect) 1977 HPV Screening 1975 Tobacco Screening 1977 Imm-Pneumococcal (2 [...] 09/23/2021, 08/0 03/2021, 10/31/2019, Additional history exists [id number] (3 - season) 2024 021, 11/07/2020 Imm-Influenza (#1) 2024 12/16/2019, 1 , 12/16/2012 Diabetes Screening 11/20/2025 11/20/2024, 0 10/27/2022, 10/27/2022, Additional history exists Cervical Cancer Screening 09/23/2026 Pap + HPV 09/23/2026 09/23/2021, 08/0 03/2021, 10/31/2019, Additional history exists Lipid Screening 10/28/2027 10/27/2022, 110 08/2021, 06/17/2021, Additional history exists Imm-DTaP/Tdap/Td (2 - Td or Tdap) 10/27/2032 023, 04/05/2017 Hepatitis C Screening Completed 01/27/2022, 016 HIV Screening Completed 03/03/2022, 07/2021, 06/21/2018 Cervical Ablation/Cold-Knife Conization Discontinued Cervical Cryotherapy Discontinued Colposcopy Discontinued Excision/Leep Discontinued HPV Genotyping Discontinued Imm-Hepatitis [...] Memory changes New onset headache Pre-diabetes PAP W/ HPV 09/23/2021 3:00 AM EDT from Last 3 Months or Most Recently Relevant to Health Maintenance Results * IMAGING SCANNED DOCUMENT (11/20/2024 3:00 AM EDT) 11/20/2024 3:00 AM EDT us Nikhil Alex MAINTENANCE TEAM LEADER SCAN IMAGING Final Result * Screening MAMMO (11/13/2022 3:00 AM EDT) 11/13/2022 3:00 AM EDT Becky Gutierrez PA-C IMG MAMMO Edited Resul t - Final * (ABNORMAL) LIPID PANEL (10/27/2022 9:22 AM EDT) CHOLESTEROL, TOTAL 224(H) <200 mg/dL [facility] HDL CHOLESTEROL 58 > OR = 50 mg/dL [employer] TRIGLYCERIDES 114 <150 mg/dL [facility] [place] [employer] LDL-CHOLESTEROL 143(H) 99 mg/dL (calc) [facility] Comment: Reference range: <100 Desirable range <100 mg/dL for primary prevention; <70 mg/dL for patients with CHD or diabetic patients with > or = 2 CHD risk factors. LDL-C is now calculated using the Morro-Laws calculation, which is a validated novel method providing better accuracy than the Friedewald equation in the estimation of LDL-C. Morro SS et al. JESE. 2013;310(19): 9416-8873 (http://education.International Battery/faq/ARV905) CHOL/HDLC RATIO 3.9 <5.0 (calc) [employer] NON-HDL CHOLESTEROL 166(H) <130 mg/dL (calc) [facility] Comment: For patients with diabetes plus 1 major ASCVD risk factor, treating to a non-HDL-C goal of <100 mg/dL (LDL-C of <70 mg/dL) is considered a therapeutic option. Blood Blood / Unknown 10/27/2022 9 :22 AM EDT 10/27/2022 9:22 AM EDT Narrative [facility] - 10/28/2022 4:56 PM EDT FASTING:YES Becky Gutierrez PA-C LAB - BLOOD DRAW Final Resul t [facility] [address] [address], [facility] [address] [address] * HIV 1/2 AG & AB W/RFLX (4TH GEN) (03/03/2022 8:45 AM EST) HIV AG/AB, 4TH GEN NON-REAC TIVE NON-REAC TIVE [facility] Comment: HIV-1 antigen and HIV-1/HIV-2 antibodies [...] purpose. For additional information please refer to http://SocialThreader/faq/YMQ338 (This link is being provided for informational/ educational purposes only.) The performance of this assay has not been clinically validated in patients less than 2 years old. Blood Blood / Unknown 03/03/2022 8 :45 AM EST 03/03/2022 8:46 AM EST Becky Gutierrez PA-C LAB - BLOOD DRAW Final Resul t [employer] [address] [address], [facility] [address] ([address]) [place] [address] * HEPATITIS C AB W/RFLX HCV RNA, QT, RT PCR (01/27/2022 8:44 AM EST) Pathologist [facility] HEPATITIS C ANTIBODY NON-REACT MERRY NON-REACT MERRY [facility] SIGNAL TO CUT-OFF 0.08 <1.00 [employer] Comment: HCV antibody was non-reactive. There is no laboratory evidence of HCV infection. In most cases, no further action is required. However, if recent HCV exposure is suspected, a test for HCV RNA (test code 50301) is suggested. For additional information please refer to http://education.[employer]ijia.[employer]/faq/BPY06g8 (This link is being provided for informational/ educational purposes only.) Blood Blood / Unknown 01/27/2022 8 :44 AM EST 01/27/2022 8:45 AM EST Becky Gutierrez PA-C LAB - BLOOD DRAW Edited Resu lt - Final [facility] [address] [address], [facility] [address] [address] * PAP W/ HPV (09/23/2021 3:00 AM EDT) 09/23/2021 3:00 AM EDT Becky Gutierrez PA-C LAB - PATHOLOGY AND CYTOLOGY AMBULATORY Final Result from Last 3 Months or Most Recently Relevant to Health Maintenance Insurance [employer] Care Teams Nutrition Services Worker Relationship Specialty Start Date End Date Becky Gutierrez PA-C [address] [place] [address] PCP - General Internal Medicine 10/20/17
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
[2024-12-27 14:44] VITALS: BMI 33.5
[2024-12-29] VITALS (7 sets, daily range): BP systolic 115–150; BP diastolic 49–88; PULSE 66–79; RESP 12–18; TEMP 36.1–36.3; O2SAT 95–100; BMI 33.2
--- NOTE | 2024-12-29 08:26 | MHC.SHP ---
Pre-Procedural Eval Section A - 24 Hr Update-Section A only Date of Service: 12/29/24 The patient is an INPATIENT: No Changes since office visit: No Cold of Flu in the past 2 weeks, No New Medical Problems, No Changes in Medication and No Patient answered all questions The patient has been examined within 24 hours of the surgical procedure. The History & Physical has been completed within 30 days and I have reviewed it.: Yes Section B - Complete if H&P > 30 days Chief Complaint: Unspecified hemorrhoids Allergies: Allergies Allergy/AdvReac Type Severity Reaction Status Date / Time tramadol (TRAMADOL) Allergy Intermediate NAUSEA, Verified 12/06/24 10:59 VOMITING, DIZZINESS Plan I have reviewed the history and physical and performed a pertinent physical examination on my patient. No changes have occurred unless specified. Time Spent With Patient Time: Total time managing care of this patient today ____ minutes.
[2024-12-29] MEDS: Lactated Ringers 1,000 ML 100 ML IVCONT (08:33)
--- NOTE | 2024-12-29 12:21 | W.PM.OPN ---
Operative Note Operative Note Date of Service: 12/29/24 Narrative: Preop diagnosis: bleeding hemorrhoids Postop diagnosis: same, internal and external Procedure: Exam under anesthesia, hemorrhoidectomy x 2 columns Surgeon: Chandler Carroll MD The patient is a 49F with a long history of hemorrhoid issues, including bleeding, pain and discomfort. She wanted to proceed with hemorrhoidectomy. She understood the technique of the planned procedure as well as the risks, benefits and alternatives and she had given consent. She was brought to the operating room and placed in prone katarina-knife position under general anesthesia via endotracheal tube. The buttocks were retracted with wide tape laterally. The perianal area was prepped and draped in the usual sterile fashion. A surgical time-out was done with the patient received Cefotan 2 g IV preoperatively I infiltrated the perianal area with lidocaine 1%. Examination of the anal orifice showed large external and prolapsing internal hemorrhoids which appeared to be anterior and posterior I inserted the Brendon Andrade retractor. I examined the anal canal circumferentially. Again this mixed internal and external hemorrhoids were noted and appeared to be bulky with prolapsing component. There were no lesions seen. I applied a Mendoza grasper on the umbilicus column on the posterior aspect to retract this. I made a mkuvog-mh-rltot stitch at the pedicle past the attempted line with a chromic 3-0. I made an incision around this hemorrhoidal column to the perianal skin with a blade 15. I excise this hemorrhoidal tissue along this incision with Metzenbaum scissors above the plane of the sphincters. I closed the incision with a running chromic 3-0 stitch. Hemostatic wbbyfh-sw-nwcbd sutures were added oozing areas. The same procedure was duplicated on the hemorrhoidal column anteriorly. Again, this was retracted the Mendoza grasper. I made a jjwphl-yh-ixqfe stitch at the pedicle and made an incision around this hemorrhoidal column. I excised this hemorrhoidal column along this incision above the plane of the sphincters and closed this incision with a running chromic 3-0 stitch Additional hemostatic sutures were placed Once hemostasis was confirmed, I proceeded to then infiltrated the perianal area with Marcaine 0.5% for postop analgesia. A Gelfoam packing was inserted in the anal canal The procedure was completed The patient tolerated procedure well. There were no immediate complications initial and final counts of sponges and instruments were correct. Estimated blood loss was about 50 cc. The patient has was extubated without difficulty transferred to the recovery room with stable vital signs.
== END 2024-12-29 10:56 | disposition home or self-care (01) ==
PROVIDERS: PCP Internal Medicine; Visit Provider Surgery
PROC: (CPT 46260; principal; 2024-12-29 09:10)
DX: K64.8 Other hemorrhoids (principal); K64.4 Residual hemorrhoidal skin tags; K59.00 Constipation, unspecified; D64.9 Anemia, unspecified; J45.909 Unspecified asthma, uncomplicated; L40.9 Psoriasis, unspecified; Z88.5 Allergy status to narcotic agent
CPT/HCPCS: 46260; 88304; J0525; J2003; J2250; J2704; J2795; J3010

== ENCOUNTER → 2024-12-29 06:47 | Outpatient (BNV) | payer OTHER, SELFPAY | PROVIDERS: PCP Internal Medicine; Visit Provider Surgery | DX: K64.8 Other hemorrhoids (principal) | CPT/HCPCS: 46260 ==

== ENCOUNTER 2025-01-11 10:07 | Outpatient (AMB) | payer OTHER, SELFPAY ==
--- NOTE | 2025-01-11 10:09 | MHC.OFFVIS ---
Vital Signs 01/11/25 10:20 Height 5 ft 5 in Weight 194 lb 6 oz BMI 32.3 BP 127/67 Blood Pressure Location Lt brachial Position Sitting Pulse 92 Intake Visit Reasons: s/p EUA hemorrhoidectomy Intake Note: Patient is seen in office for post op assessment post hemorrhoidectomy. Pt c/o: admits to bleeding, constipation and straining, bm everyother day with the meds- still has to push surgery:12/29/24 Animator Required: No Accompanied by: Self / Same As Patient Allergies tramadol (TRAMADOL) Allergy (Intermediate, Verified 01/11/25 10:21) NAUSEA, VOMITING, DIZZINESS HPI HPI s/p EUA hemorrhoidectomy: Details: Brittaney Carroll is a 49 year old female here for follow up after undergoing exam under anesthesia, hemorrhoidectomy x 2 columns on 12/29/[address] Carroll. She tolerated the procedure well. She took oxycodone at home for the first week. She still has some mild pain especially today. She reports not moving her bowels regularly. She normally goes every 4-5 days at baseline. She had not had a BM in several days and took 4 colace yesterday. She had a bowel movement this morning but still had to strain. She reports some scant rectal drainage, sometimes bloody, sometimes dark. She has been doing the sitz baths a couple of times a day which she feels really helps with the pain. She overall feels ok and is eating normally. [facility] Medical History H/O headache Left-sided weakness History of CVA (cerebrovascular accident) (2014) Syncope (11/20/24) Bleeding hemorrhoids Psoriasis Anemia Asthma Surgical History Hx of endoscopy History of tubal ligation H/O colonoscopy Social History Are you a primary health care marketing specialist to a significant other at home: No Do you presently have visiting nurse or other home services: No Patient Tobacco Use Status: Never used Tobacco Review of Systems Const All systems reviewed & are unremarkable except as noted in HPI and below Physical Exam Vital Signs: Last Vital Signs Pulse 92 01/11/25 10:20 BP 127/67 01/11/25 10:20 BMI result Body Mass Index 32.3 Const General: comfortable, no acute distress, well developed and alert; No ill appearing Orientation/consciousness: patient oriented x3 Resp Effort & Inspection: normal respiratory effort and able to speak in complete sentences GI Other: rectal exam- some edema of the area, no erythema, no drainage noted Skin Other: warm and dry Neuro General: patient oriented x3 and moves all extremities Results Reviewed Results Reviewed: Hemorrhoids, hemorrhoidectomy: Benign skin, and benign squamous and colonic mucosa with ectatic and irregular submucosal vessels, consistent with hemorrhoids Assessment & Plan Assessment & Plan (1) Internal and external prolapsed hemorrhoids: Code(s): K64.8 - Other hemorrhoids Category: Medical (2) S/P hemorrhoidectomy: Code(s): Z98.890 - Other specified postprocedural states; Z87.19 - Personal history of other diseases of the digestive system Category: Surgical Plan 49 year old female s/p exam under anesthesia, hemorrhoidectomy x 2 columns on 12/29/24. She tolerated the procedure well. She has some continued mild pain at the site and occasional bloody drainage. She is straining to have bowel movements and has baseline constipation. She has mild edema rectally without evidence of infection. She was instructed on having a good bowel regimen at home to prevent straining. She is to continue the colace twice a day and is to add fiber supplementation and miralax daily for now until she begins to go more regularly without straining. She was instructed to continue the fiber daily even down the line with her chronic constipation. She is to continue sitz baths 2-3 times a day and following bowel movements. She is to follow up in the office in 1 month or sooner if she develops concerns. She and her have no questions and are comfortable with the plan. Medications: New psyllium husk (Metamucil) mix into at least 8 oz of water or juice before administering 1 tbsp PO DAILY 660 grams 0RF polyethylene glycol 3350 (Miralax) 17 grams PO DAILY 30 ea 0RF Coding Level of Care Code Global (22398) Diagnoses Internal and external prolapsed hemorrhoids K64.8 S/P hemorrhoidectomy Z98.890; Z87.19
[2025-01-11 10:20] VITALS: BP 127/67; PULSE 92; BMI 32.3
--- OUTSIDE RECORDS SUMMARY | 2025-01-11 14:52 | XMS_ITS | Clinical Summary ---
Author Organization [employer] Address [address] [place] [address] Care Team Providers Care Field Representative Name Role Phone Unavailable Primary Care Provider [...] (10/26/2024 8:05 AM EDT) Urine NEGATIVE NEGATIVE [facility] Comment:This test was develo ped to detect early . Falsenegative results may occur after the 5th - 7th week ofpregnancy when using this test method. If clinicallyindicated, consider a serum hCG. 10/26/2024 8:05 AM EDT 10/26/2024 8:16 AM EDT us Generic External Data Provider LAB URINE ORDERAB LES Final Result [facility] [address] [place] [phone] from Last 3 Months
--- OUTSIDE RECORDS SUMMARY | 2025-01-11 14:52 | XMS_ITS | Clinical Summary ---
Author Organization [facility] Address [address] [facility] [address] [place] [address] Phone Care Team Providers Care Campus Security Officer Name Role Phone Nikhil Alex NP Primary Care Provider [phone] Allergies Active Allergy Reactions Criticality Noted Date Comments Tramadol Swelling High 05/02/2023 Medications No known medications Active Problems Problem Noted Date Diagnosed Date Syncope 11/20/2024 Encounters Date Type Department Care Team Description 11/20/2024 9:35 AM EDT Ancillary Procedure [facility] Imaging Bedside Ultrasound VRT [address] [place] [address] Monika Dawson MD 11/20/2024 9:31 AM EDT - 11/20/2024 8:48 PM EDT Hospital Encounter [facility] Emergency Dept [address] [place] [address] Monika Dawson MD Huang, Calvin K, MD, MPH Discharge Disposition: Home or Self Care 11/20/2024 Procedure Pass [facility] [place], [facility] [address] [facility], Floor 1 [place] [address] 11/20/2024 Procedure Pass [facility] Emergency Imaging, [facility] [address] [facility], Floor 1 [place] [address] 11/20/2024 Procedure Pass [facility] Emergency Imaging, [facility] [address] [facility], [address] 1 [place] [address] from Last 3 Months Social History Tobacco [...] patient's age to complete this topic IPV VACCINES Aged Out No longer eligi ble [...] HCG STAT 11/20/2024 1:34 PM EDT URINALYSIS WITH REFLEX TO URINE CULTURE STAT 11/20/2024 1:34 PM EDT LACTIC ACID (LACTATE) STAT 11/20/2024 11:49 AM EDT TROPONIN STAT 11/20/2024 10:[address] ANGIO ABDOMEN/PELVIS WITH AND WITHOUT CONTRAST STAT 11/20/2024 10:[address] CHEST PULMONARY ANGIOGRAM (ACUTE) STAT 11/20/2024 10:[address] HEAD WITHOUT CONTRAST STAT 11/20/2024 10:11 AM EDT ABO AND RH STAT 11/20/2024 9:39 AM EDT HC BLOOD TYPING SEROLOGIC ABO STAT 11/20/2024 9:39 AM EDT NT-PROBNP STAT 11/20/2024 9:36 AM EDT TROPONIN STAT 11/20/2024 9:36 AM EDT VENOUS BLOOD GAS PLUS STAT 11/20/2024 9:36 AM EDT LACTIC ACID (LACTATE) STAT 11/20/2024 9:36 AM EDT PT-INR STAT 11/20/2024 9:36 AM EDT LIPASE STAT 11/20/2024 9:36 AM EDT MAGNESIUM STAT 11/20/2024 9:36 AM EDT LFTS (HEPATIC PANEL) STAT 11/20/2024 9:36 AM EDT BASIC METABOLIC PANEL (BMP) STAT 11/20/2024 9:36 AM EDT CBC AND DIFFERENTIAL STAT 11/20/2024 9:36 AM EDT from Last 3 Months Results * Lactate (11/20/2024 5:48 PM EDT) Only the most recent of4 resultswithin the time period is included. Pathologist [facility] LACTIC ACID (MMOL/L) 1.2 0.5 - 2.0 mmol/L [facility] Blood 11/20/2024 5:48 PM EDT 11/20/2024 6:02 PM EDT us Monika Dawson MD LAB BLOOD BKR ORDERABLES Fin al Result [facility] [address] [place] [address] * ECG 12-LEAD (11/20/2024 2:10 PM EDT) Only the most recent of2 resultswithin the time period is included. Pathologist [facility] Systolic Blood Pressure 147 mmHg [facility] Diastolic Blood Pressure 66 mmHg [facility] Ventricular Rate EKG/MIN 61 BPM [facility] Atrial Rate 61 BPM [facility] AK Interval 170 ms [facility] QRS Duration 74 ms [facility] QT Interval 414 ms [facility] QTC Interval 416 ms [facility] P [place] 42 degrees [facility] R Wave [place] 59 degrees [facility] T Wave [place] 49 degrees [facility] 11/20/2024 2:10 PM EDT 11/28/2024 7:38 AM EDT Narrative [facility] - 11/28/2024 7:38 AM EDT LOC: [id number] DX: CHEST PAIN REF: MONIKA DAWSON SINUS RHYTHM TRACING IS WITHIN NORMAL LIMITS WHEN COMPARED WITH ECG OF 20-Nov-2024 13:43, NO SIGNIFICANT CHANGE us Monika Dawson MD ECG ORDERABLES Final Result [facility] * (ABNORMAL) Urine Sediment (11/20/2024 1:34 PM EDT) Pathologist [facility] RBC 0-2 0 - 2 /hpf [facility] WBC <10 <10 /hpf [facility] Comment:0 to 2 WBC's per hpf SQUAMOUS CELLS Present(A ) None /hpf [facility] BACTERIA 1+(A) None /hpf [facility] MUCUS Present(A ) None [facility] 11/20/2024 1:34 PM EDT 11/20/2024 1:52 PM EDT us Ashanti Gallagher MD URINE ORDERABLES Final Result Performing Organization Address [facility] de Phone Number [address] [address] * (ABNORMAL) Urinalysis w/reflex Urine Culture (11/20/2024 1:34 PM EDT) COLOR Yellow Yellow [facility] CLARITY Clear Clear [facility] GLUCOSE Negative Negative [facility] BILI Negative Negative [facility] KETONES Negative Negative [facility] SPECIFIC GRAVITY >1.040(H) 1.001 - 1.035 [facility] BLOOD 3+(A) Negative [facility] PH 6.5 5.0 - 9.0 [facility] Protein-UA Negative Negative [facility] UROBILINOGEN Negative Negative [facility] NITRITE Negative Negative [facility] Leukocyte esterase, ur Negative Negative [facility] Urine (Urine) 11/20/2024 1:3 4 PM EDT 11/20/2024 1:52 PM EDT us Monika Dawson MD LAB URINE ORDERABLES Final R esult Performing Organization Address [facility] Co de Phone Number [address] [address] * Toxicology screen, urine (11/20/2024 1:34 PM EDT) URINE AMPHETAMINES Negative Negative [facility] URINE BENZODIAZEPINE Negative Negative [facility] URINE COCAINE METAB Negative Negative [facility] URINE OPIATES Negative Negative [facility] Comment:This assay is not se nsitive for detection of oxycodone and oxymorphone. URINE OXYCODONE Negative Negative [facility] Fentanyl, urine Negative Negative [facility] URINE CREATININE 73 mg/dL [facility] Urine (Urine) 11/20/2024 1:3 4 PM EDT 11/20/2024 1:58 PM EDT Monika Dawson MD LAB URINE ORDERABLES Final R esult Performing Organization Address City/[facility]/ZIP Co de Phone Number [address] [address] * HCG, urine (11/20/2024 1:34 PM EDT) URINE TEST Negative Negative [facility] Urine (Urine) 11/20/2024 1:3 4 PM EDT 11/20/2024 1:53 PM EDT Monika Dawson MD LAB URINE ORDERABLES Final R esult Performing Organization Address [facility] Co de Phone Number [address] [address] * Troponin (11/20/2024 10:48 AM EDT) Only the most recent of2 resultswithin the time period is included. Troponin-T, HS Gen5 <6 0 - 9 ng/L [facility] Blood 11/20/2024 10:4 8 AM EDT 11/20/2024 11:02 AM EDT Monika Dawson MD LAB BLOOD BKR ORDERABLES Fin al Result Performing Organization Address [facility] Co de Phone Number [address] [address] * CT ANGIO ABDOMEN/PELVIS WITH AND WITHOUT CONTRAST (11/20/2024 10:11 AM EDT) MGB IMG [facility] COMMENT incidental pulmonary noduls [facility] MGB IMG RECOMMENDATION COMMENT Focus of Incidental Pulmonary Nodule [facility] Anatomical Region Laterality Modality Abdomen, Abdominal [...] initiated on 11/20/2024 10:54 AM, Message ID [id number]. ATTESTATION: I, Dr. Lico Douglas as teaching [...] of Incidental Pulmonary Nodule Follow-up . Ferhodavid Mathews, et al. Guidelines for Management of Incidental PulmonaryNodules Detected on CT Images: From the Fleischner Society 2017.Radiology. 2017 Matteo;284(1):228- 243. A clinically significant result was initiated on 11/20/2024 10:54 AM,Message ID [id number]. ATTESTATION: I, Dr. Lico Douglas as teaching physician, have reviewedthe images for this case and if necessary edited the report originallycreated by Yg Meyer. us Monika Dawson MD IMG CT ABD/PELVIS Final Resu lt * CT CHEST PULMONARY ANGIOGRAM (ACUTE) (11/20/2024 10:11 AM EDT) MGB IMG [facility] COMMENT incidental pulmonary noduls [facility] Anatomical Region Laterality Modality Chest, Thoracic Vasculature [...] initiated on 11/20/2024 10:54 AM, Message ID [id number]. ATTESTATION: I, Dr. Lico Douglas as teaching [...] was initiated on 11/20/2024 10:54 AM,Message ID [id number]. ATTESTATION: I, Dr. Lico Douglas as teaching [...] AM EDT No acute intracranial findings. ATTESTATION: David, Dr. Lico Douglas as teaching physician, have reviewed the images for this case and if necessary edited the report originally created by Carlitos Browning. Narrative 11/20/2024 11:[address] HEAD WITHOUT CONTRAST Referring clinician's provided indication for this examination in [facility]: * Cerebral hemorrhage suspected TECHNIQUE: CT [...] clinician's provided indication for this examination in [facility]: *Cerebral hemorrhage suspected TECHNIQUE: CT of [...] by Carlitos Browning. us Monika Dawson MD [facility] CT HEAD/NECK Final Resul t * ABO and Rh (11/20/2024 9:39 AM EDT) Expiration Date of Sample 11/23/2024 11:59 PM [facility] ABO O 11/20/2024 10:47 AM EDT [facility] Rh Positive 11/20/2024 10:47 AM EDT [facility] Resulting Agency [facility] 11/20/2024 9:39 AM EDT 11/20/2024 9:51 AM EDT Blood Bank LAB BLOOD BANK TEST ORDERABLES F inal Result Performing Organization Address [facility] Co de Phone Number [address] [address] * Type and Screen (ABO,Rh,Antibody Screen) (11/20/2024 9:39 AM EDT) Expiration Date of Sample 11/23/2024 11:59 PM [facility] ABO O 11/20/2024 10:47 AM EDT [facility] Rh Positive 11/20/2024 10:47 AM EDT [facility] Resulting Agency [facility] Antibody Screen Negative 11/20/2024 11:02 AM EDT [facility] Blood 11/20/2024 9:39 AM EDT 11/20/2024 9:51 AM EDT Monika Dawson MD LAB BLOOD BANK TEST ORDERABL ES Final Result Performing Organization Address [facility] de Phone Number [address] [address] * (ABNORMAL) VENOUS BLOOD GAS PLUS (11/20/2024 9:36 AM EDT) FIO2 UNSPEC. FIO2/L min [facility] PH 7.43(H) 7.30 - 7.40 [facility] PCO2 38 38 - 50 mm[Hg] [facility] PO2 33(L) 35 - 50 mm[Hg] [facility] Base Excess, unspecified 0.3 0.0 - 3.0 mmol/L [facility] HCO3, unspecified 25 24 - 30 mmol/L [facility] SODIUM 142 135 - 145 mmol/L [facility] POTASSIUM 3.5 3.5 - 5.0 mmol/L [facility] IONIZED CALCIUM 1.11(L) 1.14 - 1.30 mmol/L [facility] Glucose, whole bld 133(H) 70 - 110 mg/dL [facility] HGB (BG) 11.0(L) 12.0 - 16.0 g/dl [facility] SO2-VENOUS (SO2, venous) 56.3(L) 60.0 - 85.0 % [facility] Blood 11/20/2024 9:36 AM EDT 11/20/2024 9:44 AM EDT Monika Dawson MD LAB BLOOD ORDERABLES Final R esult Performing Organization Address [facility] Co de Phone Number [address] [address] * LFTs (hepatic panel) (11/20/2024 9:36 AM EDT) ALBUMIN 4.3 3.3 - 5.0 g/dL [facility] TOTAL BILIRUBIN 0.2 0.0 - 1.0 mg/dL [facility] DIRECT BILIRUBIN 0.1 0.0 - 0.3 mg/dL [facility] ALKALINE PHOSPHATASE 74 30 - 100 U/L [facility] AST 16 9 - 32 U/L [facility] ALT 11 7 - 33 U/L [facility] TOTAL PROTEIN 7.4 6.0 - 8.3 g/dL [facility] GLOBULIN 3.1 1.9 - 4.1 g/dL [facility] Blood 11/20/2024 9:36 AM EDT 11/20/2024 9:47 AM EDT us Monika Dawson MD LAB BLOOD BKR ORDERABLES Fin al Result Performing Organization Address [facility] Co de Phone Number [address] [address] * PT-INR (11/20/2024 9:36 AM EDT) PT 10.4 10.0 - 13.0 sec [facility] INR 0.9 0.9 - 1.1 [facility] Blood 11/20/2024 9:36 AM EDT 11/20/2024 9:48 AM EDT us Monika Dawson MD LAB BLOOD BKR ORDERABLES Fin al Result [facility] [address] [place] [address] * (ABNORMAL) CBC and differential (11/20/2024 9:36 AM EDT) WBC 9.23 4.00 - 11.00 K/uL [facility] RBC 4.44 4.00 - 5.20 M/uL [facility] HGB 10.5(L) 12.0 - 16.0 g/dL [facility] HCT 34.3(L) 36.0 - 46.0 % [facility] PLT 509(H) 150 - 450 K/uL [facility] MCV 77.3(L) 80.0 - 100.0 fL [facility] MCH 23.6(L) 27.0 - 31.0 pg [facility] MCHC 30.6(L) 32.0 - 36.0 g/dL [facility] RDW 15.7(H) 11.5 - 14.5 % [facility] MPV 11.2 8.4 - 12.0 fL [facility] NRBC 0.00 0.00 /100 WBCs [facility] ABSOLUTE NRBC 0.00 0.00 K/uL [facility] DIFF METHOD Auto [facility] NEUTS 46.8(L) 48.0 - 76.0 % [facility] LYMPHS 42.9(H) 18.0 - 41.0 % [facility] MONOS 7.0 4.0 - 11.0 % [facility] EOS 2.2 0.0 - 5.0 % [facility] BASOS 0.8 0.0 - 1.5 % [facility] % IMMATURE GRANS 0.3 0.0 - 0.9 % [facility] ABSOLUTE NEUTS 4.32 1.92 - 7.60 K/uL [facility] ABSOLUTE LYMPHS 3.96 0.72 - 4.10 K/uL [facility] ABSOLUTE MONOS 0.65 0.16 - 1.10 K/uL [facility] ABSOLUTE EOS 0.20 0.00 - 0.50 K/uL [facility] ABSOLUTE BASOS 0.07 0.00 - 0.15 K/uL [facility] ABS IMMATURE GRANS 0.03 0.00 - 0.09 K/uL [facility] Blood 11/20/2024 9:36 AM EDT 11/20/2024 9:47 AM EDT Monika Dawson MD LAB BLOOD BKR ORDERABLES Fin al Result Performing Organization Address [facility] Co de Phone Number [address] [address] * NT-proBNP (11/20/2024 9:36 AM EDT) NT-PROBNP 50 0 - 450 pg/mL [facility] Comment: Reference Range: Age <50 years: [...] AM EDT Monika Dawson MD LAB BLOOD BKR ORDERABLES Fin al Result [address] [address] * Magnesium (11/20/2024 9:36 AM EDT) MAGNESIUM 1.9 1.7 - 2.4 mg/dL [facility] Blood 11/20/2024 9:36 AM EDT 11/20/2024 9:47 AM EDT Monika Dawson MD LAB BLOOD BKR ORDERABLES Fin al Result [address] [address] * Lipase (11/20/2024 9:36 AM EDT) LIPASE 23 13 - 60 U/L [facility] Blood 11/20/2024 9:36 AM EDT 11/20/2024 9:47 AM EDT Monika Dawson MD LAB BLOOD BKR ORDERABLES Fin al Result Performing Organization Address [facility] Co de Phone Number [address] [address] * (ABNORMAL) Basic metabolic panel (11/20/2024 9:36 AM EDT) SODIUM 139 135 - 145 mmol/L [facility] POTASSIUM 3.6 3.4 - 5.0 mmol/L [facility] CHLORIDE 105 98 - 108 mmol/L [facility] CO2 22(L) 23 - 32 mmol/L [facility] BUN 16 8 - 25 mg/dL [facility] CREATININE 0.75 0.50 - 1.00 mg/dL [facility] GLUCOSE 134(H) 70 - 110 mg/dL [facility] CALCIUM 9.1 8.5 - 10.5 mg/dL [facility] EGFR 99 >59 mL/min/1. 73m2 [facility] Comment:Estimated glomerular filtration rate calculated using the CKD-EPI refit equation. ANION GAP 12 3 - 17 mmol/L [facility] Blood 11/20/2024 9:36 AM EDT 11/20/2024 9:47 AM EDT Monika Dawson MD LAB BLOOD BKR ORDERABLES Fin al Result Performing Organization Address City/[facility]/ZIP Co de Phone Number [address] [address] from Last 3 Months Insurance [facility] [employer] Care Teams Campus Security Officer Relationship Specialty Start Date End Date Nikhil Alex NP [facility] [place] [address] PCP - General Nurse Practitioner 05/02/23 Additional Source Comments The information contained in this document represents components of the legal health record. It is not the complete legal health record.[facility]
--- OUTSIDE RECORDS SUMMARY | 2025-01-11 14:53 | XMS_ITS | Encounter Summary ---
Author Organization el? [facility] Address [address] [place] [address] Phone Care Team Providers Care Laundrette Owner Name Role Phone Nihkil Alex NP Primary Care Provider [phone] Encounter Details Date Type Department Care Team (Late st Contact Info) Description 11/20/2024 Procedure Pass [facility] [place], [address] [place] [address] Social History Tobacco Use Types Packs/Day Years [...] on filedocumented in this encounter Care Teams Laundrette Owner Relationship Specialty Start Date End Date Nikhil Alex NP [address] [place] [address] PCP - General Nurse Practitioner 05/02/23 documented as of this encounter Additional Source Comments The information contained in this document represents components of the legal health record. It is not the complete legal health record.[facility]
--- OUTSIDE RECORDS SUMMARY | 2025-01-11 14:53 | XMS_ITS | Encounter Summary ---
Author Organization [facility] Address [address] [place] [address] Phone Care Team Providers Care Claims Technician Name Role Phone Nikhil Alex NP Primary Care Provider [phone] Encounter Details Date Type Department Care Team (Late st Contact Info) Description 11/20/2024 Procedure Pass [facility] [place], [address] [place] [address] Social History Tobacco Use Types Packs/Day Years [...] on filedocumented in this encounter Care Teams Claims Technician Relationship Specialty Start Date End Date Nikhil Alex NP [address] [place] [address] PCP - General Nurse Practitioner 05/02/23 documented as of this encounter Additional Source Comments The information contained in this document represents components of the legal health record. It is not the complete legal health record.[facility]
--- OUTSIDE RECORDS SUMMARY | 2025-01-11 14:53 | XMS_ITS | Encounter Summary ---
Author Organization [facility] Address [address] [place] [address] Phone Care Team Providers Care Nursing Department Chairperson Name Role Phone Nikhil Alex NP Primary Care Provider [phone] Encounter Details Date Type Department Care Team (Late st Contact Info) Description 11/20/2024 Procedure Pass [facility] [place] Imaging, [address] [place] [address] Social History Tobacco Use Types Packs/Day Years [...] on filedocumented in this encounter Care Teams Nursing Department Chairperson Relationship Specialty Start Date End Date Nikhil Alex NP [address] [place] [address] PCP - General Nurse Practitioner 05/02/23 documented as of this encounter Additional Source Comments The information contained in this document represents components of the legal health record. It is not the complete legal health record.[facility]
== END 2025-01-11 10:30 | disposition home or self-care (01) ==
LOC: HO.HGS 10:08
PROVIDERS: PCP Internal Medicine; Visit Provider Physician Assistant Surgical
DX: K64.8 Other hemorrhoids (principal); Z98.890 Other specified postprocedural states; Z87.19 Personal history of other diseases of the digestive system
CPT/HCPCS: 99024

== ENCOUNTER → 2025-01-11 10:07 | Outpatient (BNVA) | payer OTHER, SELFPAY | PROVIDERS: PCP Internal Medicine; Visit Provider Physician Assistant Surgical | DX: K64.8 Other hemorrhoids (principal); K59.00 Constipation, unspecified; Z87.19 Personal history of other diseases of the digestive system; Z98.890 Other specified postprocedural states | CPT/HCPCS: 99212 ==